=== PATIENT | female | born 1955 | race Caucasian/White ===

== ENCOUNTER 2016-12-17 12:34 | Emergency (ER) | payer MEDICARE ==
[2016-12-17 13:18] VITALS: BP 115/71; PULSE 80; RESP 18; TEMP 97.4
--- NOTE | 2016-12-17 13:36 | ED ---
Lower Extremity Injury HPI - General Chief Complaint: Extremity Injury, Lower Stated Complaint: rt ankle injury Time Seen by Provider: 12/17/16 13:23 Source: patient, RN notes reviewed Mode of arrival: ambulatory Limitations: no limitations - History of Present Illness Initial Comments: Patient is a 61-year-old female presents to the emergency room for evaluation of right ankle pain. Patient states last night she was walking and accidentally twisted her ankle. Patient said she felt multiple pops and lateral side of her ankle. Patient states she got home she took naproxen and ice her ankle. Patient states she woke up this morning her ankle is more swollen and bruising on the lateral side of her foot. Patient states pain is worse when she puts weight on her right leg. Patient has a numbness or tingling in her toes. Patient denies any other injuries during incident. - Related Data Home Medications Medication Instructions Recorded Confirmed Naproxen [Naproxen] 500 mg PO BID 10/06/14 12/17/16 PARoxetine HCL [Paroxetine HCl] 20 mg PO DAILY 10/06/14 12/17/16 Simvastatin [Simvastatin] 10 mg PO HS 10/06/14 12/17/16 Previous Rx's Medication Instructions Recorded ALPRAZolam [Xanax] 0.5 mg PO Q8HR PRN #10 tablet 10/06/14 Allergies Allergy/AdvReac Type Severity Reaction Status Date / Time codeine Allergy Unknown Verified 12/17/16 13:18 Review of Systems ROS Statement: Those systems with pertinent positive or pertinent negative responses have been documented in the HPI. ROS Other: All systems not noted in ROS Statement are negative. Past Medical History Past Medical History: Fibromyalgia Additional Past Medical History / Comment(s): arthritis, kidney ca History of Any Multi-Drug Resistant Organisms: None Reported Past Surgical History: Hysterectomy, Tubal Ligation Additional Past Surgical History / Comment(s): kidney surgery Past Psychological History: Anxiety, Depression Smoking Status: Current every day smoker Past Alcohol Use History: None Reported Past Drug Use History: None Reported General Exam - General Exam Comments Initial Comments: Sitting on exam bed in no acute distress. Limitations: no limitations General appearance: alert, in no apparent distress Head exam: Present: atraumatic, normocephalic, normal inspection Eye exam: Present: normal appearance ENT exam: Present: normal exam Neck exam: Present: normal inspection Respiratory exam: Absent: respiratory distress Right Ankle exam: Present: full ROM, tenderness (Lateral malleolus), swelling ( Lateral malleolus), ecchymosis (Lateral malleolus) Foot/Toe exam: Present: full ROM. Absent: tenderness, swelling Neurovascular tendon exam: Absent: pulse deficit (2+ dorsal pedal and posterior tibial pulses), abnormal cap refill (capillary refill less than 2 seconds) Back exam: Present: normal inspection Neurological exam: Present: alert, oriented X3, CN II-XII intact Psychiatric exam: Present: normal affect, normal mood Skin exam: Present: warm, dry, intact, normal color. Absent: rash Course Vital Signs 12/17/16 13:15 Temperature 97.4 F L Pulse Rate 80 Respiratory 18 Rate Blood Pressure 115/71 O2 Sat by Pulse 98 Oximetry Medical Decision Making - Medical Decision Making Patient is a 61-year-old female presents to the emergency room for evaluation of right ankle pain and swelling. Right ankle/foot x-ray shows no acute fractures or dislocations. Patient placed in an ankle stirrup advised to follow -up with primary care provider or electronic specialist if symptoms are not improving in 7-10 days. Patient states she has crutches at home. Advised patient to nonweight bear for the next 2 days. Patient states she understands everything that was discussed with her. Return parameters discussed. Case discussed with Dr. Morris. - Radiology Data Radiology results: report reviewed, image reviewed Disposition Clinical Impression: Right ankle sprain Disposition: HOME SELF-CARE Condition: Good Instructions: Ankle Sprain (ED) Additional Instructions: Rest, elevate and ice on and off for 10-15 minutes for the next 24-48 hours. Use crutches for the next 2 days. Take Tylenol or Motrin as needed for pain. Please follow-up with electronic specialist or primary care provider symptoms are not improving in 7-10 days. If new symptoms develop or symptoms worsen, please return to the ER. Referrals: Jose Alfredo Stewart DO [Primary Care Provider] - 1-2 days Gerald Bonds MD [Medical Doctor] - 12/25/16 Time of Disposition: 13:55
--- NOTE | 2016-12-17 13:47 | XR ---
EXAMINATION TYPE: XR ankle complete RT, XR foot complete RT DATE OF EXAM: 12/17/2016 1:39 PM CLINICAL HISTORY: Pain after twisting injury yesterday. TECHNIQUE: Frontal, lateral and oblique images of the right ankle and foot are obtained. COMPARISON: None. FINDINGS: Osseous structures are demineralized which is noted to lower radiographic sensitivity There is no acute fracture/dislocation evident in the right ankle. The ankle mortise appears within drake l limits. Mild to moderate soft tissue swelling over the lateral malleolus is noted. There is no acute fracture or dislocation evident in the right foot. The joint spaces in the right f oot are preserved. Overlying soft tissue is unremarkable. IMPRESSION: There is no acute fracture or dislocation in the right ankle or foot.
== END 2016-12-17 14:13 | disposition home or self-care (01) ==
LOC: EC 12:34
DX: S93.401A Sprain of unspecified ligament of right ankle, initial encounter (principal); X50.1XXA Overexertion from prolonged static or awkward postures, initial encounter; Y93.01 Activity, walking, marching and hiking; M79.7 Fibromyalgia; F41.9 Anxiety disorder, unspecified; F32.9 Major depressive disorder, single episode, unspecified; F17.200 Nicotine dependence, unspecified, uncomplicated; Z79.1 Long term (current) use of non-steroidal anti-inflammatories (NSAID); Z79.899 Other long term (current) drug therapy; Z88.5 Allergy status to narcotic agent
CPT/HCPCS: 73610; 73630; 99283; L4350

== ENCOUNTER → 2016-12-20 | Outpatient (CLI) | payer MEDICARE ==
--- NOTE | 2016-12-20 09:40 | CT ---
EXAMINATION TYPE: CT brain wo con DATE OF EXAM: 12/20/2016 9:31 AM COMPARISON: NONE HISTORY: Memory Loss CT DLP: 1036 mGycm Automated exposure control for dose reduction was used. FINDINGS: There is no acute intracranial hemorrhage, mass effect, or midline shift identified. The ventricles and sulci are within normal limits in size. The globes are intact and the visualized sinuses are puja ar. IMPRESSION: No acute intracranial hemorrhage, mass effect, or midline shift is seen.
== END | disposition home or self-care (01) ==
LOC: RADCTMAIN 09:10
PROVIDERS: ATTEND Family Medicine
DX: R41.3 Other amnesia (principal)
CPT/HCPCS: 70450

== ENCOUNTER 2018-09-01 13:20 | Emergency (ER) | payer MEDICARE ==
[2018-09-01 14:10] LABS: Basophils % (A) 0 %; Eosinophils # (A) 0.1 k/uL (0-0.7); Eosinophils % (A) 1 %; HCT 42.2 % (34.0-46.0); HGB 13.6 gm/dL (11.4-16.0); Lymphocytes # (A) 1.3 k/uL (1.0-4.8); Lymphocytes % (A) 15 %; MCH 25.9 pg (25.0-35.0); MCHC 32.2 g/dL (31.0-37.0); MCV 80.5 fL (80.0-100.0); Mean Platelet Volume 7.5; Monocytes # (A) 0.3 k/uL (0-1.0); Monocytes % (A) 4 %; Neutrophils # (A) 6.7 k/uL (1.3-7.7); Neutrophils % (A) 78 %; Platelet Count 287 k/uL (150-450); RBC 5.24 m/uL (3.80-5.40); WBC 8.6 k/uL (3.8-10.6)
--- NOTE | 2018-09-01 14:12 | ED ---
Chest Pain HPI - General Chief Complaint: Chest Pain Stated Complaint: Chest Pain Time Seen by Provider: 09/01/18 13:35 Source: patient, RN notes reviewed, Caregiver Mode of arrival: wheelchair Limitations: no limitations - History of Present Illness Initial Comments: This is a 63-year-old female the ER for evaluation. Patient does say for evasive chest pain chest pain rating to back 2 days. Patient denies any nausea vomiting, no fever cough or congestion no current shortness of breath. History of high blood pressure history of CVA. Patient denies any traumatic injury. MD Complaint: chest pain -: days(s) (2) Onset: during rest, during exertion Pain Location: left chest Pain Radiation: back Severity: mild Severity scale (1-10): 3 Quality: aching Consistency: constant Improves With: nothing Worsens With: nothing Anginal Symptoms: other (None) Treatments Prior to Arrival: none - Related Data Home Medications Medication Instructions Recorded Confirmed Naproxen 500 mg PO BID 10/06/14 09/01/18 PARoxetine HCL [Paroxetine HCl] 20 mg PO DAILY 10/06/14 09/01/18 Simvastatin 10 mg PO HS 10/06/14 09/01/18 Aspirin [[place] Aspirin EC] 81 mg PO DAILY 09/01/18 09/01/18 Multivitamins, Thera [Multivitamin 1 tab PO DAILY 09/01/18 09/01/18 (formulary)] Allergies Allergy/AdvReac Type Severity Reaction Status Date / Time codeine Allergy Unknown Verified 09/01/18 17:01 Review of Systems ROS Statement: Those systems with pertinent positive or pertinent negative responses have been documented in the HPI. ROS Other: All systems not noted in ROS Statement are negative. EKG Findings - EKG Comments: EKG Findings:: EKG shows sinus rhythm rate of 71, TX 156, QRS 76, QTc 395 Past Medical History Past Medical History: Cancer, Fibromyalgia, Hyperlipidemia, Osteoarthritis (OA) Additional Past Medical History / Comment(s): arthritis, kidney ca History of Any Multi-Drug Resistant Organisms: None Reported Past Surgical History: Hysterectomy, Tubal Ligation Additional Past Surgical History / Comment(s): kidney surgery Past Psychological History: Anxiety, Depression Smoking Status: Current every day smoker Past Alcohol Use History: None Reported Past Drug Use History: None Reported General Exam Limitations: no limitations General appearance: alert, in no apparent distress Head exam: Present: atraumatic, normocephalic, normal inspection Eye exam: Present: normal appearance, PERRL, EOMI. Absent: scleral icterus, conjunctival injection, periorbital swelling ENT exam: Present: normal exam, mucous membranes moist Neck exam: Present: normal inspection. Absent: tenderness, meningismus, lymphadenopathy Respiratory exam: Present: normal lung sounds bilaterally. Absent: respiratory distress, wheezes, rales, rhonchi, stridor Cardiovascular Exam: Present: regular rate, normal rhythm, normal heart sounds. Absent: systolic murmur, diastolic murmur, rubs, gallop, clicks GI/Abdominal exam: Present: soft, normal bowel sounds. Absent: distended, tenderness, guarding, rebound, rigid Extremities exam: Present: normal inspection, full ROM, normal capillary refill. Absent: tenderness, pedal edema, joint swelling, calf tenderness Back exam: Present: normal inspection Neurological exam: Present: alert, oriented X3, CN II-XII intact Psychiatric exam: Present: normal affect, normal mood Skin exam: Present: warm, dry, intact, normal color. Absent: rash Course Vital Signs 09/01/18 09/01/18 09/01/18 13:22 13:32 15:00 Temperature 98 F 98.1 F Pulse Rate 84 86 76 Respiratory 18 18 16 Rate Blood Pressure 152/98 139/86 139/86 O2 Sat by Pulse 96 97 97 Oximetry 09/01/18 09/01/18 16:00 17:07 Temperature 97.6 F Pulse Rate 76 82 Respiratory 16 20 Rate Blood Pressure 118/77 140/78 O2 Sat by Pulse 94 L 98 Oximetry - Reevaluation(s) Reevaluation #1: 09/01/18 14:12 Medical record is reviewed Studies CTA chest is a negative Chest Pain MDM - MDM 63 female the ER for evaluation of chest pain. Patient refusing to stay in the ER for further evaluation, refusing observation. Patient will be discharged home Disposition Clinical Impression: Chest pain, Anxiety Disposition: HOME SELF-CARE Condition: Good Instructions: Chest Pain (ED) Is patient prescribed a controlled substance at d/c from ED?: No Referrals: Jose Alfredo Stewart DO [Primary Care Provider] - 1-2 days
[2018-09-01 14:18] LABS: ALT 18 U/L (9-52); AST 28 U/L (14-36); Albumin 4.3 g/dL (3.5-5.0); Alkaline Phosphatase 89 U/L (38-126); Anion Gap 9 mmol/L; Blood Urea Nitrogen 14 mg/dL (7-17); Calcium 10.2 mg/dL (8.4-10.2); Carbon Dioxide 23 mmol/L (22-30); Chloride 105 mmol/L (98-107); Glucose 113 mg/dL (74-99); Lipase 68 U/L (23-300); Magnesium 2.1 mg/dL (1.6-2.3); Potassium 4.9 mmol/L (3.5-5.1); Sodium 137 mmol/L (137-145); Total Bilirubin 0.4 mg/dL (0.2-1.3); Total Protein 7.6 g/dL (6.3-8.2)
[2018-09-01 14:20] LABS: INR 1.1 (<1.2); Partial Thromboplastin Time 26.4 sec (22.0-30.0); Prothrombin Time 10.6 sec (9.0-12.0)
[2018-09-01 14:32] LABS: Creatine Kinase 44 U/L (30-135)
[2018-09-01 14:45] LABS: Creatine Kinase MB 0.2 ng/mL (0.0-2.4); Troponin I <0.012 ng/mL (0.000-0.034)
--- NOTE | 2018-09-01 16:23 | CT ---
EXAMINATION TYPE: CT angio thor/abd pel aorta DATE OF EXAM: 09/01/2018 3:51 PM COMPARISON: CT abdomen 08/18/2013 HISTORY: Chest pain. CT DLP: 497.8 mGycm Automated exposure control for dose reduction was used. TECHNIQUE: Performed with IV Contrast, patient injected with 100 mL of Isovue 370. Three-D reconstructed images were not performed. 2-D MIPS imaging is performed.. FINDINGS: Portion of the thyroid visualized is unremarkable. Small axillary lymph nodes are present. The larges t lymph node is 1.0 cm. Small right axillary lymph nodes are also present. The ascending thoracic aor ta at the level of the main pulmonary artery is 3.2 cm the main pulmonary artery the bifurcation is 2 .3 cm. The aorta tapers normally throughout its visualized course within the thorax. No dissection is evident. CT ABDOMEN: Celiac axis and superior mesenteric arteries appear normal. Renal arteries appear normal. No aneurysmal dilatation of the abdominal aorta is evident. Very minimal vascular calcification is i n the distal aorta. Common iliac, internal and external iliac vessels appear normal to the common fem oral arteries. Urinary bladder is unremarkable. No suspicious diverticulitis is evident. Multiple hepatic cysts appe ar to be present. The largest measures 5.3 cm and 5 Hounsfield units. 1.3 cm left renal cyst is prese nt. Some scarring may be at the inferior pole of the left kidney. IMPRESSION: NORMAL THORACIC AND ABDOMINAL AORTA WITHOUT EVIDENCE OF DISSECTION OR ANEURYSM.
[2018-09-01 17:08] VITALS: BP 140/78; PULSE 82; RESP 20; TEMP 97.6
== END 2018-09-01 17:14 | disposition home or self-care (01) ==
LOC: EC 13:20
DX: F41.9 Anxiety disorder, unspecified (principal); R07.9 Chest pain, unspecified; M54.9 Dorsalgia, unspecified; E78.5 Hyperlipidemia, unspecified; M19.90 Unspecified osteoarthritis, unspecified site; F32.9 Major depressive disorder, single episode, unspecified; F17.200 Nicotine dependence, unspecified, uncomplicated; Z88.5 Allergy status to narcotic agent; Z79.1 Long term (current) use of non-steroidal anti-inflammatories (NSAID); Z79.82 Long term (current) use of aspirin; Z79.899 Other long term (current) drug therapy; Z85.528 Personal history of other malignant neoplasm of kidney; Z98.890 Other specified postprocedural states
CPT/HCPCS: 36415; 93005; 83880; 80053; 82550; 82553; 83690; 83735; 84484; 85025; 85610; 85730; 71275; 74174; 99285; Q9967

== ENCOUNTER → 2019-02-07 | Outpatient (CLI) | payer MEDICARE ==
--- NOTE | 2019-02-07 12:34 | BD ---
EXAMINATION TYPE: Axial Bone Density DATE OF EXAM: 02/07/2019 COMPARISON: NONE CLINICAL HISTORY: Height: 5 FT Weight: 120 FRAX RISK QUESTIONS: Secondary Osteoporosis: Current Tobacco Use: YES RISK FACTORS HISTORY OF: Family History of Osteoporosis: YES Active: YES Postmenopausal woman: AGE 60 Frequent falls: YES MEDICATIONS: Additional Medications: SIMVASTATIN, NAPROSEN,PAXIL , VIT D,ASPIRIN, FOLIC ACID Additional History: EXAM MEASUREMENTS: Bone mineral densitometry was performed using the swiftQueue System. Bone mineral density as measured about the Lumbar spine is: ----- L1-L4(G/cm2): 1.013 T Score Values are as follows: ----- L2: -1.6 ----- L3: -1.4 ----- L4: -1.4 ----- L1-L4: -1.4 BASELINE Bone mineral density about the R hip (g/cm2): 0.722 Bone mineral density about the L hip (g/cm2): 0.730 T Score values are as follows: -----R Neck: -2.3 -----L Neck: -2.2 -----R Total: -1.7 -----L Total: -1.9 BASELINE IMPRESSION: Osteopenia NOTE: T-SCORE=SD OF THE YOUNG ADULT MEAN.
--- NOTE | 2019-02-11 08:26 | MM ---
Reason for exam: screening (asymptomatic). Last mammogram was performed 1 year and 4 months ago. History: Patient is postmenopausal and has history of high-risk lesion on a previous biopsy at age 51. Family history of breast cancer in sister at age 42. High risk excisional biopsy of the right breast, February 19, 2007. Benign ultrasound-guided core biopsy of the right breast, March 20, 2002. Cyst aspiration of the left breast. Cyst aspiration of the right breast. Core biopsy of the right breast. Physical Findings: A clinical breast exam by your physician is recommended on an annual basis and results should be correlated with mammographic findings. MG Screening Mammo w CAD Bilateral CC and MLO view(s) were taken. Prior study comparison: October 03, 2017, bilateral MG screening mammo w CAD. The breast tissue is heterogeneously dense. This may lower the sensitivity of mammography. No significant changes when compared with prior studies. ASSESSMENT: Negative, BI-RAD 1 RECOMMENDATION: Routine screening mammogram of both breasts in 1 year.
== END | disposition home or self-care (01) ==
LOC: RADMAMWWP 11:25
PROVIDERS: ATTEND Family Medicine
DX: Z12.31 Encounter for screening mammogram for malignant neoplasm of breast (principal); M85.851 Other specified disorders of bone density and structure, right thigh; M85.852 Other specified disorders of bone density and structure, left thigh; M85.88 Other specified disorders of bone density and structure, other site
CPT/HCPCS: 77067; 77080

== ENCOUNTER → 2020-03-29 | Outpatient (CLI) | payer MEDICARE | END | disposition home or self-care (01) | LOC: LABWHC1 10:27 | PROVIDERS: ATTEND Internal Medicine | DX: Z11.59 Encounter for screening for other viral diseases (principal) ==

== ENCOUNTER 2020-04-01 11:54 | Day surgery (SDC) | payer MEDICARE ==
[2020-03-31 08:52] VITALS: BMI 23.4
[~2020-04-01 11:54] MED LIST: LACTATED RINGERS 1,000 ML IV SCH
[2020-04-01 12:25] VITALS: TEMP 97
[2020-04-01] MEDS ORDERED: LIDOCAINE 1% (10MG/ML) FOR IV START INTRADERMA ONE (12:31)
[2020-04-01] MEDS ORDERED: PROPOFOL 10 MG/ML 20 ML VIAL IV ONE (12:59)
--- NOTE | 2020-04-01 13:36 | P.PCN ---
Date of Procedure: 04/01/20 Description of Procedure: BRIEF HISTORY: Patient is a 64-year-old female presenting to the hospital for outpatient colonoscopy for a history of colon polyps. Denies any change in bowel habits, blood per rectum or family history of colon cancer. Last colonoscopy significant for polypectomy and colon polyps. PROCEDURE PERFORMED: Colonoscopy with polypectomy. PREOPERATIVE DIAGNOSIS: History of colon polyps. ESTIMATED BLOOD LOSS: Minimal. IV sedation per Anesthesia. PROCEDURE: After informed consent was obtained, the patient, was brought into the endoscopy unit. IV sedation was administered by Anesthesia under continuous monitoring. Digital rectal examination was normal. Initially the Olympus CF-190 flexible video colonoscope was then inserted in the rectum, gradually advanced into the cecum with some difficulty secondary to a poor prep with stool noted throughout the colon. Careful examination was performed as the scope was gradually being withdrawn. Ileocecal valve and the appendiceal orifice were visualized and appeared normal. Prep was poor with a large amount of liquid stool throughout the colon precluding complete visualization of mucosa. Mucosa of the cecum, ascending colon, transverse colon, descending colon, sigmoid colon, and rectum appeared normal, however complete view was obstructed by stool. Flat 5 mm transverse colon polyp removed with cold snare polypectomy. Retroflexion was performed in the rectum and no lesions were seen. The patient tolerated the procedure well. IMPRESSION: 5 mm transverse colon polyp removed with cold snare polypectomy. Poor prep with stool noted throughout the colon obstructing completely visualization of the mucosa. RECOMMENDATIONS: Findings of this examination were discussed with the patient. Okay to resume diet. Okay to resume medications. Would recommend repeat colonoscopy in 6-12 months with a 2 day prep. Otherwise await results from polypectomy.
[2020-04-01 13:57] VITALS: BP 122/74; PULSE 77; RESP 18
== END 2020-04-01 14:01 | disposition home or self-care (01) ==
LOC: ORWHC2ENDO 11:54
PROVIDERS: ATTEND Internal Medicine
DX: Z12.11 Encounter for screening for malignant neoplasm of colon (principal); D12.3 Benign neoplasm of transverse colon; Z86.010 Personal history of colon polyps; E78.5 Hyperlipidemia, unspecified; M19.90 Unspecified osteoarthritis, unspecified site; M79.7 Fibromyalgia; F41.9 Anxiety disorder, unspecified; F32.9 Major depressive disorder, single episode, unspecified; F17.200 Nicotine dependence, unspecified, uncomplicated; Z88.5 Allergy status to narcotic agent; Z88.8 Allergy status to other drugs, medicaments and biological substances; Z79.82 Long term (current) use of aspirin; Z79.1 Long term (current) use of non-steroidal anti-inflammatories (NSAID); Z79.899 Other long term (current) drug therapy; Z85.528 Personal history of other malignant neoplasm of kidney; Z98.51 Tubal ligation status; Z90.710 Acquired absence of both cervix and uterus; Z98.890 Other specified postprocedural states
CPT/HCPCS: 88305; 45385; J2704

== ENCOUNTER → 2020-05-20 | Outpatient (CLI) | payer MEDICARE ==
[2020-05-20 13:27] VITALS: BP 110/70; PULSE 87; RESP 16
--- NOTE | 2020-05-21 08:23 | P.PAINCN ---
History of Present Illness - Reason for Consult Consult date: 05/20/20 - History of Present Illness This is a 65-year-old patient referred by Dr. Stewart with a chief complaint of chronic pain in thoracic spine. Pain began approximately 6 months ago with no inciting event. Pain is located at T8-9 region, radiating to left thoracic paraspinal region, around the left rib cage up to sternum. Pain is rated as 8/10, described as dull, aching, throbbing. She endorses difficulty with activities of daily living. She also endorses nausea when the pain gets severe. She denies numbness, weakness, tingling in upper and lower extremities. She denies aggravating or relieving factors, she has tried heat, ice and massage with no significant benefit. She has also been on Neurontin 100 mg twice a day which helped, however she is no longer taking this medication. She was evaluated by Dr. Nunez who did not recommend surgical intervention at this time. Patient has been taking medications from primary care physician including naproxen, Tylenol, lidocaine patch with some relief. Patient denies adverse drug effects from medications. Patient also denies new-onset weakness, bowel/bladder incontinence, or any other signs or symptoms of cauda equina syndrome. There are no signs of acute intoxication, and no indications of medication diversion or overuse. Patient has not had surgery. Patient has not had injections previously. Patient has not had physical therapy recently. In addition to above, 13-point review of systems is also negative for chest pain, shortness of breath, changes in vision, changes in hearing, new onset weakness, abdominal pain, diarrhea, extreme fatigue, malaise, fever, skin changes, homicidal or suicidal ideation, or bowel or bladder incontinence. Physical exam: Vital Signs: Reviewed in EMR GENERAL: Well appearing, in no acute distress PSYCH: Mood and affect is appropriate. Awake, alert, and oriented SKIN: Skin color, texture, turgor normal, no rashes or lesions HEENT: Normocephalic, atraumatic. EOM intact CV: No pedal edema RESP: Respirations are unlabored, no audible wheezing GI: Abdomen non-distended MUSCULOSKELETAL: Bilateral upper and lower extremity strength is normal and symmetric. No atrophy or tone abnormalities are noted. Neck: No pain to palpation over the cervical paraspinous muscles. Normal cervical lordotic curve and normal cervical spine range of motion. Tenderness to palpation along bilateral trapezius muscles. Thoracic spine: Tenderness to palpation along bilateral thoracic paraspinal muscles, worse on the left side. Lumbar spine: No pain to palpation over the lumbar spine and paraspinous muscles. Buttocks: No pain to palpation over the PSIS Extremities: Peripheral joint ROM is full and pain free without obvious instability or laxity in all four extremities. No edema or skin discolorations noted. Gait: Gait is normal NEUR: Bilateral upper and lower extremity coordination and muscle stretch reflexes are physiologic and symmetric. No loss of sensation is noted. Cranial nerves are grossly intact. Imaging: MRI thoracic spine done on 04/21/2020 shows multilevel degenerative changes with accentuated thoracic kyphosis and texture convex curvature, multilevel small disc herniations most prominent at T5-6 level with a left central disc protrusion which minimally contacts the ventral cord. Assessment: 1. Thoracic degenerative disc disease 2. Kyphosis Plan: 1. Investigations: MRI thoracic spine reviewed 2. Procedures: We will schedule thoracic epidural steroid injection at T8-9 3. Medications: No changes, in the future would consider resuming gabapentin 4. Disposition: For above-mentioned procedure Past Medical History Past Medical History: Cancer, Fibromyalgia, Hyperlipidemia, Osteoarthritis (OA) Additional Past Medical History / Comment(s): arthritis, kidney ca, History of Any Multi-Drug Resistant Organisms: None Reported Past Surgical History: Cholecystectomy, Hysterectomy, Tubal Ligation Additional Past Surgical History / Comment(s): RT kidney surgery, COLONOSCOPY Past Anesthesia/Blood Transfusion Reactions: Previous Problems w/ Anesthesia Additional Past Anesthesia/Blood Transfusion Reaction / Comm: SLOW TO WAKE UP Smoking Status: Former smoker - Past Family History Mother Family Medical History: Cancer Sister(s) Family Medical History: Cancer Father Family Medical History: Cancer Medications and Allergies Home Medications Medication Instructions Recorded Confirmed Type Naproxen 500 mg PO BID 10/06/14 05/20/20 History PARoxetine HCL [Paroxetine HCl] 20 mg PO DAILY 10/06/14 05/20/20 History Simvastatin 10 mg PO HS 10/06/14 05/20/20 History Aspirin [[place] Aspirin EC] 81 mg PO DAILY 09/01/18 05/20/20 History Multivitamins, Thera [Multivitamin 1 tab PO DAILY 09/01/18 05/20/20 History (formulary)] Ranolazine [Ranexa] 1,000 mg PO BID 03/31/20 05/20/20 History Verapamil HCl [[place] Sr] 240 mg PO DAILY 03/31/20 05/20/20 History Acetaminophen [Tylenol Extra 500 mg PO BID PRN 05/20/20 05/20/20 History Strength] Allergies Allergy/AdvReac Type Severity Reaction Status Date / Time codeine Allergy Rash/Hives Verified 05/20/20 13:10 isosorbide Allergy HEADACHE Verified 05/20/20 13:10 PQRS Measure Charge Sheet Measure #130: Documentation of Current Meds in Medical Chart: Patient's medications documented in chart Measure #226: Tobacco Use: Screen & Cessation Intervention: Pt screened for tobacco use AND intervention given Measure #111: Pneumonia Vaccination: Pneumococcal vaccine NOT administered or previously given Measure #47: Advance Care Plan: Advance care planning discussed & documented, pt chose/unable to give Measure #412: Opioid Treatment Agreement: No documentation of signed opioid treatment agreement Measure #408: Opioid Therapy Follow-up Evaluation: Patient had NO f/u eval minimum every 3 months during opioid therapy Measure #317: Preventitive Care & Scrn High Bld Press & F/U: Normal blood pressure, f/u not required Measure #128: Body Mass Index (BMI) Screening & Follow-up: BMI documented within normal parameters Measure #131: Pain Assessment & Follow-up: Pain positive & plan documented, Follow-up scheduled Measure #431: Unhealthy Alcohol Use Preventative Care & Scrn: Patient not identified as an unhealthy alcohol user PQRS Narrative: Smoking Status Current every day smoker Pain Intensity [Back] 9 Scale Used Numeric (1 - 10) Hx Alcohol Use (MH) No Home Medications: Ambulatory Orders Naproxen 500 mg PO BID 10/06/14 PARoxetine HCL [Paroxetine HCl] 20 mg PO DAILY 10/06/14 Simvastatin 10 mg PO HS 10/06/14 Aspirin [[place] Aspirin EC] 81 mg PO DAILY 09/01/18 Multivitamins, Thera [Multivitamin (formulary)] 1 tab PO DAILY 09/01/18 Ranolazine [Ranexa] 1,000 mg PO BID 03/31/20 Verapamil HCl [Calan Sr] 240 mg PO DAILY 03/31/20 Acetaminophen [Tylenol Extra Strength] 500 mg PO BID PRN 05/20/20
== END | disposition home or self-care (01) ==
LOC: PNWHC3 12:48
PROVIDERS: ATTEND Anesthesiology
DX: M51.34 Other intervertebral disc degeneration, thoracic region (principal); M40.209 Unspecified kyphosis, site unspecified; F17.200 Nicotine dependence, unspecified, uncomplicated; Z79.891 Long term (current) use of opiate analgesic; Z79.899 Other long term (current) drug therapy; Z79.82 Long term (current) use of aspirin; Z88.5 Allergy status to narcotic agent; Z88.8 Allergy status to other drugs, medicaments and biological substances
CPT/HCPCS: 99211

== ENCOUNTER 2020-06-03 06:44 | Day surgery (SDC) | payer MEDICARE ==
[2020-06-02 10:15] VITALS: BMI 22.4
[2020-06-03 07:06] VITALS: TEMP 97
[2020-06-03] MEDS ORDERED: MIDAZOLAM 2 MG/2 ML VIAL ONE (07:40)
[2020-06-03] MEDS ORDERED: IOPAMIDOL M200 10 ML VIAL ONE (07:40)
[2020-06-03] MEDS ORDERED: methylPREDNISolone ACETATE 40 MG/ML 1 ML VIAL ONE (07:40)
--- NOTE | 2020-06-03 08:03 | P.PCN ---
Date of Procedure: 06/03/20 Description of Procedure: Diagnosis: Thoracic radiculopathy Thoracic degenerative disc disease POSTOPERATIVE DIAGNOSIS: Diagnoses: Thoracic back pain Cervical degenerative disc disease PROCEDURE Thoracic Epidural steroid injection under fluoroscopic guidance at the T8-T9 interspace using right paramedian approach Thoracic epidurogram ANESTHESIA: Local with 1% lidocaine 3 ml and IV sedation with Versed, sedation time 12 min Fluoroscopy was used for the procedure and images were saved in the radiology portion of the chart. EBL: Minimal PROCEDURE INDICATION: The patient presents with thoracic radicular symptoms unresponsive to conservative treatment. This is the [first/ second] cervical epidural steroid injection. PROCEDURE DESCRIPTION / TECHNIQUE: The patient was seen and identified in the preoperative area. Risks, benefits, complications including but not limited to infections ,bleeding ,allergic reaction to the medications ,nerve damage and incomplete pain relief, and alternatives were discussed with the patient. The patient agreed to proceed with the procedure and signed the consent. IV was started, and vital signs were stable. Patient was taken to the OR and time out was completed. The patient was placed in the prone position on procedure table and a pillow was placed under the chest area. The thoracic area was prepped and draped in the usual sterile fashion. Conscious sedation was used during the procedure to decrease patients anxiety. Vital signs was monitored during the entire procedure. Using anterior-posterior fluoroscopy, the T8-T9 interlaminar space was identified and the skin over this site was marked and then infiltrated with 1% lidocaine subcutaneously. Subsequently, a 20-gauge Tuohy epidural needle was inserted and advanced toward the epidural space using the loss of resistance technique and guided by AP and 50 oblique fluoroscopy. The correct needle position in the epidural space was verified. After negative aspiration for blood and CSF and in the absence of paresthesias, Isovue 200 2 mL's was injected under live fluoroscopy with good epidural spread. After negative aspiration, a 5 ml mixture containing 40 mg of depo-medrol, 2 mL of preservative free normal saline and 2 mL of 1% lidocaine was injected. Needle was withdrawn intact, skin was cleansed, and bandages were applied. COMPLICATIONS: None DISPOSITION / PLANS: The patient was placed in a supine position and transferred to the recovery area in a stable condition for observation. There was no evidence of lower extremity motor or sensory deficit after the procedure. Patient was discharged from the recovery room after meeting discharge criteria. Home discharge instructions were given to the patient by the staff. The patient will be scheduled a [follow up/repeat procedure] in the clinic in 2-4 weeks.
[2020-06-03] MEDS ORDERED: IV FLUID CONTINUATION 1,000 ML IV ONE ×2 (08:05)
[2020-06-03 08:20] VITALS: BP 125/60; PULSE 69; RESP 18
--- NOTE | 2020-06-03 08:27 | XR ---
EXAMINATION TYPE: XR chest 1V DATE OF EXAM: 06/03/2020 COMPARISON: Chest x-ray May 14, 2013. CT September 01, 2018 HISTORY: Postthoracic epidural with pain. TECHNIQUE: Single frontal view of the chest is obtained. FINDINGS: There is some chronic parenchymal changes bilaterally without new suspicious focal air spa ce opacity, pleural effusion, or pneumothorax seen. The cardiac silhouette size remains within drake l limits. Slight underlying scoliotic curvature. Cholecystectomy clips redemonstrated. IMPRESSION: No acute cardiopulmonary process.
--- NOTE | 2020-06-03 09:40 | FL ---
EXAMINATION TYPE: FL guided pain mgmt statistic DATE OF EXAM: 06/03/2020 HISTORY: Fluoroscopy time 5 seconds of fluoroscopy provided. IMPRESSION: 1. Fluoroscopy time.
== END 2020-06-03 08:39 | disposition home or self-care (01) ==
LOC: ORPAIN 06:44
PROVIDERS: ATTEND Anesthesiology
DX: M51.14 Intervertebral disc disorders with radiculopathy, thoracic region (principal); M50.30 Other cervical disc degeneration, unspecified cervical region; Z88.5 Allergy status to narcotic agent; Z88.8 Allergy status to other drugs, medicaments and biological substances
CPT/HCPCS: 71045; 62321; J2250; J1030; Q9966; 99152

== ENCOUNTER 2020-07-01 09:52 | Emergency (ER) | payer MEDICARE ==
[2020-07-01 10:04] VITALS: RESP 18
[2020-07-01] MEDS ORDERED: ONDANSETRON 4 MG/2 ML VIAL IVP STA (10:23)
[2020-07-01] MEDS ORDERED: MORPHINE SULFATE 4 MG/ML SYRINGE IV STA (10:23)
--- NOTE | 2020-07-01 10:30 | ED ---
Chest Pain HPI - General Chief Complaint: Chest Pain Stated Complaint: Chest pain, back pain Time Seen by Provider: 07/01/20 10:10 Source: patient, RN notes reviewed Mode of arrival: ambulatory Limitations: no limitations - History of Present Illness Initial Comments: This a 65-year-old female presents emergency from chief complaint of back and chest pain. This pain has been on and off for several months. Patient has been seen her PCP and was referred to Dr. Oropeza and pain management. Patient states that she had MRI of her thoracic back which showed disc protrusion, degenerative changes. Patient states she had injections in her back which only helped for a couple days. Patient has not been providing any oral pain meds. Patient denies any shortness of breath no abdominal pain. Patient denies any trauma. She did see a segment assembler in which she had a full workup and was negative. - Related Data Home Medications Medication Instructions Recorded Confirmed Naproxen 500 mg PO BID 10/06/14 07/01/20 PARoxetine HCL [Paroxetine HCl] 20 mg PO DAILY 10/06/14 07/01/20 Simvastatin 10 mg PO HS 10/06/14 07/01/20 Aspirin [[place] Aspirin EC] 81 mg PO DAILY 09/01/18 07/01/20 Ranolazine [Ranexa] 1,000 mg PO BID 03/31/20 07/01/20 Verapamil HCl [Calan Sr] 240 mg PO DAILY 03/31/20 07/01/20 Cholecalciferol [Vitamin D3 (25 2,000 unit PO DAILY 07/01/20 07/01/20 Mcg = 1000 Iu)] Allergies Allergy/AdvReac Type Severity Reaction Status Date / Time codeine Allergy Rash/Hives Verified 07/01/20 10:48 isosorbide AdvReac HEADACHE Verified 07/01/20 10:48 Review of Systems ROS Statement: Those systems with pertinent positive or pertinent negative responses have been documented in the HPI. ROS Other: All systems not noted in ROS Statement are negative. EKG Findings - EKG Comments: EKG Findings:: EKG performed at 10:12 normal sinus rhythm with rate of 69 TX 162 QRS 84 QT/QTc 376/402 Past Medical History Past Medical History: Cancer, Fibromyalgia, Hyperlipidemia, Hypertension, Osteoarthritis (OA) Additional Past Medical History / Comment(s): arthritis, kidney ca, CHEST AND BACK PAIN History of Any Multi-Drug Resistant Organisms: None Reported Past Surgical History: Cholecystectomy, Hysterectomy, Tubal Ligation Additional Past Surgical History / Comment(s): RT kidney surgery, COLONOSCOPY Past Anesthesia/Blood Transfusion Reactions: Previous Problems w/ Anesthesia Additional Past Anesthesia/Blood Transfusion Reaction / Comment(s): SLOW TO WAKE UP Past Psychological History: Anxiety, Depression Smoking Status: Current every day smoker Past Alcohol Use History: None Reported Past Drug Use History: None Reported - Past Family History Mother Family Medical History: Cancer Sister(s) Family Medical History: Cancer Father Family Medical History: Cancer General Exam Limitations: no limitations General appearance: alert, in no apparent distress Head exam: Present: atraumatic, normocephalic, normal inspection Eye exam: Present: normal appearance, PERRL, EOMI. Absent: scleral icterus, conjunctival injection, periorbital swelling ENT exam: Present: normal exam, normal oropharynx, mucous membranes moist Neck exam: Present: normal inspection, full ROM. Absent: tenderness, meningismus, lymphadenopathy Respiratory exam: Present: normal lung sounds bilaterally. Absent: respiratory distress, wheezes, rales, rhonchi, stridor Cardiovascular Exam: Present: regular rate, normal rhythm, normal heart sounds. Absent: systolic murmur, diastolic murmur, rubs, gallop, clicks GI/Abdominal exam: Present: soft, normal bowel sounds. Absent: distended, tenderness, guarding, rebound, rigid Back exam: Present: full ROM, tenderness Neurological exam: Present: alert, oriented X3 Skin exam: Present: warm, dry, intact, normal color. Absent: rash Course Vital Signs 07/01/20 09:59 Temperature 97.9 F Pulse Rate 87 Respiratory 18 Rate Blood Pressure 128/80 O2 Sat by Pulse 100 Oximetry Chest Pain MDM - MDM I did review patient's MRI report which showed degenerative changes, disc protrusion. Patient's symptoms are consistent with thoracic back pain. Patient has been cleared by cardiology. Labs, EKG unremarkable. Patient provided a starter pack of tramadol will be discharged in stable additional close follow- up. Disposition Clinical Impression: Thoracic back pain Disposition: HOME SELF-CARE Condition: Stable Instructions (If sedation given, give patient instructions): Back Pain (ED) Additional Instructions: Please return to the Emergency Department if symptoms worsen or any other concerns. Is patient prescribed a controlled substance at d/c from ED?: No Referrals: Jose Alfredo Stewart DO [Primary Care Provider] - 1-2 days Time of Disposition: 11:47
[2020-07-01 11:04] LABS: Basophils % (A) 0 %; Eosinophils # (A) 0.2 k/uL (0-0.7); Eosinophils % (A) 3 %; HCT 36.5 % (34.0-46.0); HGB 11.6 gm/dL (11.4-16.0); Lymphocytes # (A) 1.1 k/uL (1.0-4.8); Lymphocytes % (A) 16 %; MCH 27.1 pg (25.0-35.0); MCHC 31.9 g/dL (31.0-37.0); MCV 84.7 fL (80.0-100.0); Mean Platelet Volume 6.7; Monocytes # (A) 0.3 k/uL (0-1.0); Monocytes % (A) 4 %; Neutrophils # (A) 5.2 k/uL (1.3-7.7); Neutrophils % (A) 76 %; Platelet Count 377 k/uL (150-450); RDW 15.1 % (11.5-15.5); WBC 6.9 k/uL (3.8-10.6)
[2020-07-01 11:05] LABS: ALT 13 U/L (4-34); AST 23 U/L (14-36); African American GFR (CKD) >90 (>60 ml/min/1.73 sqM); Albumin 4.1 g/dL (3.5-5.0); Alkaline Phosphatase 106 U/L (38-126); Anion Gap 6 mmol/L; Blood Urea Nitrogen 8 mg/dL (7-17); Calcium 9.9 mg/dL (8.4-10.2); Carbon Dioxide 25 mmol/L (22-30); Chloride 103 mmol/L (98-107); Glucose 96 mg/dL (74-99); Non-African American GFR(CKD) >90 (>60 ml/min/1.73 sqM); Partial Thromboplastin Time 27.1 sec (22.0-30.0); Potassium 4.1 mmol/L (3.5-5.1); Prothrombin Time 10.4 sec (9.0-12.0); Sodium 134 mmol/L (137-145); Total Bilirubin 0.4 mg/dL (0.2-1.3)
--- NOTE | 2020-07-01 11:27 | XR ---
EXAMINATION TYPE: XR chest 2V DATE OF EXAM: 07/01/2020 COMPARISON: Prior chest x-ray 06/03/2020 HISTORY: Chest pain TECHNIQUE: Frontal and lateral views of the chest are obtained. FINDINGS: There is no focal air space opacity, pleural effusion, or pneumothorax seen. The cardiac silhouette size is within normal limits. The osseous structures are intact, thoracic spondylosis is present. Surgical clips are present in the right upper quadrant. There are overlying cardiac leads. IMPRESSION: No acute cardiopulmonary process.
[2020-07-01] MEDS ORDERED: traMADol 50 MG STARTER PACK 3 TAB BTL PO STA (11:47)
[2020-07-01 12:02] VITALS: BP 116/85; PULSE 88; TEMP 98.1
== END 2020-07-01 12:02 | disposition home or self-care (01) ==
LOC: EC 09:52
DX: M54.6 Pain in thoracic spine (principal); R07.9 Chest pain, unspecified; I10 Essential (primary) hypertension; E78.5 Hyperlipidemia, unspecified; F41.9 Anxiety disorder, unspecified; F32.9 Major depressive disorder, single episode, unspecified; F17.200 Nicotine dependence, unspecified, uncomplicated; Z79.82 Long term (current) use of aspirin; Z79.899 Other long term (current) drug therapy; Z88.5 Allergy status to narcotic agent; Z88.8 Allergy status to other drugs, medicaments and biological substances; Z85.528 Personal history of other malignant neoplasm of kidney
CPT/HCPCS: 36415; 93005; 80053; 83690; 83735; 84484; 85025; 85610; 85730; 71046; 99285; 96374; 96375; J2270; J2405

== ENCOUNTER 2020-08-13 10:40 | Emergency (ER) | payer MEDICARE ==
[2020-08-13] MEDS ORDERED: LIDOCAINE 5% PATCH TOPICAL STA (11:02)
[2020-08-13] MEDS ORDERED: HYDROcodone/APAP 5-325MG 1 EACH TAB PO STA (11:02)
--- NOTE | 2020-08-13 11:04 | ED ---
Back Pain HPI - General Chief Complaint: Back Pain/Injury Stated Complaint: BACK PAIN Time Seen by Provider: 08/13/20 10:49 Source: patient, family Limitations: no limitations - History of Present Illness Initial Comments: Patient is 65-year-old female with history of chronic back pain presenting to the emergency department with chief complaint of back pain. Patient states her symptoms of an ongoing for approximately 6 months. States she has most pain in the upper lumbar region. Patient states she saw and had an MRI performed revealing multiple herniated disks. Patient states her pain is interfering with her ADLs. States that she saw one month ago and was prescribed Ultram and steroids with no significant improvement in symptoms. Patient reports her pain is exacerbated with left to right rotation and forward flexion. Patient states there is no saddle anesthesia, urinary retention with overflow incontinence or bowel incontinence. Denies any night sweats or chills. Denies abdominal pain nausea vomiting. - Related Data Home Medications Medication Instructions Recorded Confirmed Naproxen 500 mg PO BID 10/06/14 08/13/20 PARoxetine HCL [Paroxetine HCl] 20 mg PO DAILY 10/06/14 08/13/20 Simvastatin 10 mg PO HS 10/06/14 08/13/20 Aspirin [[place] Aspirin EC] 81 mg PO DAILY 09/01/18 08/13/20 Ranolazine [Ranexa] 1,000 mg PO BID 03/31/20 08/13/20 Verapamil HCl [Calan Sr] 240 mg PO DAILY 03/31/20 08/13/20 Cholecalciferol [Vitamin D3 (25 2,000 unit PO DAILY 07/01/20 08/13/20 Mcg = 1000 Iu)] Previous Rx's Medication Instructions Recorded Hydrocodone/Acetaminophen [[place] 1 tab PO Q6HR PRN #12 tab 08/13/20 5-325] Allergies Allergy/AdvReac Type Severity Reaction Status Date / Time codeine Allergy Rash/Hives Verified 08/13/20 11:48 isosorbide AdvReac HEADACHE Verified 08/13/20 11:48 Review of Systems ROS Statement: Those systems with pertinent positive or pertinent negative responses have been documented in the HPI. ROS Other: All systems not noted in ROS Statement are negative. Past Medical History Past Medical History: Cancer, Fibromyalgia, Hyperlipidemia, Hypertension, Osteoarthritis (OA) Additional Past Medical History / Comment(s): arthritis, kidney ca, CHEST AND BACK PAIN History of Any Multi-Drug Resistant Organisms: None Reported Past Surgical History: Cholecystectomy, Hysterectomy, Tubal Ligation Additional Past Surgical History / Comment(s): RT kidney surgery, COLONOSCOPY Past Anesthesia/Blood Transfusion Reactions: Previous Problems w/ Anesthesia Additional Past Anesthesia/Blood Transfusion Reaction / Comment(s): SLOW TO WAKE UP Past Psychological History: Anxiety, Depression Smoking Status: Current every day smoker Past Alcohol Use History: None Reported Past Drug Use History: None Reported - Past Family History Mother Family Medical History: Cancer Sister(s) Family Medical History: Cancer Father Family Medical History: Cancer General Exam Limitations: no limitations General appearance: alert, in no apparent distress Head exam: Present: atraumatic, normocephalic, normal inspection Eye exam: Present: normal appearance, PERRL, EOMI Pupils: Present: normal accommodation ENT exam: Present: normal exam, normal oropharynx, mucous membranes moist, TM's normal bilaterally, normal external ear exam Neck exam: Present: normal inspection, full ROM. Absent: tenderness Respiratory exam: Present: normal lung sounds bilaterally. Absent: respiratory distress, wheezes Cardiovascular Exam: Present: regular rate, normal rhythm, normal heart sounds Extremities exam: Present: normal inspection, full ROM, normal capillary refill Back exam: Present: normal inspection, full ROM, tenderness, paraspinal tenderness (Upper lumbar region), vertebral tenderness (Upper lumbar region) Neurological exam: Present: alert, oriented X3, CN II-XII intact, normal gait Psychiatric exam: Present: normal affect, normal mood Skin exam: Present: warm, dry, intact, normal color Course Vital Signs 08/13/20 08/13/20 10:43 12:16 Temperature 98.7 F Pulse Rate 90 93 Respiratory 16 16 Rate Blood Pressure 106/79 149/100 O2 Sat by Pulse 100 99 Oximetry Medical Decision Making - Medical Decision Making Patient is 65-year-old female with acute on chronic back pain. Symptoms ongoing for the past 6 months. No cauda equina. No red flags. Recent MRI performed about 2 months ago revealed multiple herniated disc. On physical examination, patient has a poor lumbar region tenderness to palpation. Some pain radiating to bilateral lower extremities. States this has been like this ever since her symptoms began. She is said to follow-up with her primary care and . Patient was given Byron it will be discharged with 3 days of Byron. Return parameters were discussed the patient is an ascending agreeable. Case discussed with physician. Disposition Clinical Impression: Mechanical back pain, Strain of lumbar region Disposition: HOME SELF-CARE Condition: Stable Instructions (If sedation given, give patient instructions): Acute Low Back Pain (ED) Additional Instructions: Take prescribed medication as directed. Do not drive or operative heavy machinery when taking medication. Return to emergency department if symptoms worsen. Prescriptions: Hydrocodone/Acetaminophen [Byron 5-325] 1 tab PO Q6HR PRN #12 tab PRN Reason: Pain Is patient prescribed a controlled substance at d/c from ED?: No Referrals: Jose Alfredo Stewart DO [Primary Care Provider] - 1-2 days Time of Disposition: 12:38
[2020-08-13 12:18] VITALS: PULSE 93
[2020-08-13] MEDS ORDERED: HYDROmorphone 0.5 MG/0.5 ML SYRINGE IM STA (12:26)
[2020-08-13 12:51] VITALS: BP 136/89; RESP 18; TEMP 97.7
== END 2020-08-13 12:48 | disposition home or self-care (01) ==
LOC: EC 10:40
DX: S39.012A Strain of muscle, fascia and tendon of lower back, initial encounter (principal); M51.26 Other intervertebral disc displacement, lumbar region; G89.29 Other chronic pain; F41.9 Anxiety disorder, unspecified; F32.9 Major depressive disorder, single episode, unspecified; E78.5 Hyperlipidemia, unspecified; I10 Essential (primary) hypertension; M19.90 Unspecified osteoarthritis, unspecified site; M79.7 Fibromyalgia; F17.200 Nicotine dependence, unspecified, uncomplicated; Z79.82 Long term (current) use of aspirin; Z79.899 Other long term (current) drug therapy; Z79.1 Long term (current) use of non-steroidal anti-inflammatories (NSAID); Z88.5 Allergy status to narcotic agent; Z88.8 Allergy status to other drugs, medicaments and biological substances; Z85.528 Personal history of other malignant neoplasm of kidney; X50.9XXA Other and unspecified overexertion or strenuous movements or postures, initial encounter
CPT/HCPCS: 99283

== ENCOUNTER 2020-08-18 09:16 | Inpatient (IN) | payer MEDICARE ==
--- NOTE | 2020-08-18 09:39 | ED ---
General Adult HPI - General Chief complaint: Chest Pain Stated complaint: chest pressure Time Seen by Provider: 08/18/20 09:20 Source: patient, RN notes reviewed, old records reviewed Mode of arrival: wheelchair Limitations: no limitations - History of Present Illness Initial comments: This is a 65-year-old female presents emergency Department with a past medical history significant for chronic back pain which sometimes radiates to her shoulders Patient states she's here today because she is having bilateral shoulder pain and circumferential rib pain. Patient denies any injury. Patient states she went to see her primary medical care doctor on Sunday and came to the emergency department on Sunday for this pain. Patient states she supposed to follow-up with a pain doctor tomorrow. Patient denies any difficulty breathing shortness of breath per patient denies any palpitations. Patient states the pain is much worse with any kind of movement. Patient states both shoulders ache diffusely and the rib pain is from the lateral aspect of the left flank to the lateral aspect of the right flank including some tenderness to the sternum. Patient denies any fever chills or cough. Patient states she is a smoker. Patient denies any abdominal pain patient's nausea vomiting diarrhea. - Related Data Home Medications Medication Instructions Recorded Confirmed Naproxen 500 mg PO BID 10/06/14 08/18/20 PARoxetine HCL [Paroxetine HCl] 20 mg PO DAILY 10/06/14 08/18/20 Simvastatin 10 mg PO HS 10/06/14 08/18/20 Aspirin [[place] Aspirin EC] 81 mg PO DAILY 09/01/18 08/18/20 Ranolazine [Ranexa] 1,000 mg PO BID 03/31/20 08/18/20 Verapamil HCl [Calan Sr] 240 mg PO DAILY 03/31/20 08/18/20 Cholecalciferol [Vitamin D3 (25 2,000 unit PO DAILY 07/01/20 08/18/20 Mcg = 1000 Iu)] Acetaminophen [Tylenol] 500 mg PO Q4-6H PRN 08/18/20 08/18/20 Ondansetron [Zofran] 4 mg PO Q8H PRN 08/18/20 08/18/20 Previous Rx's Medication Instructions Recorded Hydrocodone/Acetaminophen [[place] 1 tab PO Q6HR PRN #12 tab 08/13/20 5-325] Allergies Allergy/AdvReac Type Severity Reaction Status Date / Time codeine Allergy Rash/Hives Verified 08/18/20 10:23 isosorbide AdvReac HEADACHE Verified 08/18/20 10:23 Review of Systems ROS Statement: Those systems with pertinent positive or pertinent negative responses have been documented in the HPI. ROS Other: All systems not noted in ROS Statement are negative. Past Medical History Past Medical History: Cancer, Fibromyalgia, Hyperlipidemia, Hypertension, Osteoarthritis (OA) Additional Past Medical History / Comment(s): arthritis, kidney ca, CHEST AND BACK PAIN History of Any Multi-Drug Resistant Organisms: None Reported Past Surgical History: Cholecystectomy, Hysterectomy, Tubal Ligation Additional Past Surgical History / Comment(s): RT kidney surgery, COLONOSCOPY Past Anesthesia/Blood Transfusion Reactions: Previous Problems w/ Anesthesia Additional Past Anesthesia/Blood Transfusion Reaction / Comment(s): SLOW TO WAKE UP Past Psychological History: Anxiety, Depression Smoking Status: Current every day smoker Past Alcohol Use History: None Reported Past Drug Use History: None Reported - Past Family History Mother Family Medical History: Cancer Sister(s) Family Medical History: Cancer Father Family Medical History: Cancer General Exam - General Exam Comments Initial Comments: GENERAL: Patient is well-developed and well-nourished. Patient is nontoxic and well- hydrated and is in moderate distress. ENT: Neck is soft and supple. No significant lymphadenopathy is noted. Oropharynx is clear. Moist mucous membranes. Neck has full range of motion without eliciting any pain. EYES: The sclera were anicteric and conjunctiva were pink and moist. Extraocular movements were intact and pupils were equal round and reactive to light. Eyelids were unremarkable. PULMONARY: Unlabored respirations. Good breath sounds bilaterally. No audible rales rhonchi or wheezing was noted. CARDIOVASCULAR: There is a regular rate and rhythm without any murmurs gallops or rubs. ABDOMEN: Patient has tenderness to the right and left upper quadrants. SKIN: Skin is clear with no lesions or rashes and otherwise unremarkable. NEUROLOGIC: Patient is alert and oriented x3. Cranial nerves II through XII are grossly intact. Motor and sensory are also intact. Normal speech, volume and content. Symmetrical smile. MUSCULOSKELETAL: Normal extremities with adequate strength and full range of motion. Patient's shoulders bilaterally are tender to touch anywhere on the shoulder area there is no redness or swelling. LYMPHATICS: No significant lymphadenopathy is noted PSYCHIATRIC: Normal psychiatric evaluation. Limitations: no limitations Course Vital Signs 08/18/20 08/18/20 09:19 12:10 Temperature 98.1 F 98.6 F Pulse Rate 105 H 79 Respiratory 18 18 Rate Blood Pressure 117/82 114/72 O2 Sat by Pulse 99 98 Oximetry Medical Decision Making - Medical Decision Making EKG shows normal sinus rhythm at 89 bpm KS interval is 146 dresses 78 QT interval 362 QTC is 440. Patient's EKG shows T-wave inversions in precordial leads V1 through V4. There are Q waves in 3 and aVF. Chest x-ray showed free air under the diaphragm. I got a CT abdomen pelvis showed free air with a possible perforated gastric ulcer. I spoke with Dr. Brian she is willing to admit the patient. - Lab Data Result diagrams: 08/18/20 09:39 08/18/20 09:39 Lab Results 08/18/20 08/18/20 08/18/20 Range/Units 09:39 09:39 09:39 WBC 15.7 H (3.8-10.6) k/uL RBC 4.80 (3.80-5.40) m/uL Hgb 13.2 (11.4-16.0) gm/dL Hct 41.7 (34.0-46.0) % MCV 86.9 (80.0-100.0) fL MCH 27.5 (25.0-35.0) pg MCHC 31.7 (31.0-37.0) g/dL RDW 14.3 (11.5-15.5) % Plt Count 516 H (150-450) k/uL Neutrophils % 84 % Lymphocytes % 9 % Monocytes % 4 % Eosinophils % 2 % Basophils % 0 % Neutrophils # 13.2 H (1.3-7.7) k/uL Lymphocytes # 1.4 (1.0-4.8) k/uL Monocytes # 0.7 (0-1.0) k/uL Eosinophils # 0.3 (0-0.7) k/uL Basophils # 0.1 (0-0.2) k/uL PT 10.3 (9.0-12.0) sec INR 1.0 (<1.2) APTT 26.6 (22.0-30.0) sec D-Dimer 2.45 H (<0.60) mg/L FEU Sodium 131 L (137-145) mmol/L Potassium 4.0 (3.5-5.1) mmol/L Chloride 97 L (98-107) mmol/L Carbon Dioxide 26 (22-30) mmol/L Anion Gap 8 mmol/L BUN 11 (7-17) mg/dL Creatinine 0.56 (0.52-1.04) mg/dL Est GFR (CKD-EPI)AfAm >90 (>60 ml/min/1.73 sqM) Est GFR (CKD-EPI)NonAf >90 (>60 ml/min/1.73 sqM) Glucose 125 H (74-99) mg/dL Calcium 10.2 (8.4-10.2) mg/dL Magnesium 2.0 (1.6-2.3) mg/dL Total Bilirubin 0.5 (0.2-1.3) mg/dL AST 16 (14-36) U/L ALT 11 (4-34) U/L Alkaline Phosphatase 106 (38-126) U/L Troponin I (0.000-0.034) ng/mL Total Protein 7.3 (6.3-8.2) g/dL Albumin 4.2 (3.5-5.0) g/dL 08/18/20 Range/Units 09:39 WBC (3.8-10.6) k/uL RBC (3.80-5.40) m/uL Hgb (11.4-16.0) gm/dL Hct (34.0-46.0) % MCV (80.0-100.0) fL MCH (25.0-35.0) pg MCHC (31.0-37.0) g/dL RDW (11.5-15.5) % Plt Count (150-450) k/uL Neutrophils % % Lymphocytes % % Monocytes % % Eosinophils % % Basophils % % Neutrophils # (1.3-7.7) k/uL Lymphocytes # (1.0-4.8) k/uL Monocytes # (0-1.0) k/uL Eosinophils # (0-0.7) k/uL Basophils # (0-0.2) k/uL PT (9.0-12.0) sec INR (<1.2) APTT (22.0-30.0) sec D-Dimer (<0.60) mg/L FEU Sodium (137-145) mmol/L Potassium (3.5-5.1) mmol/L Chloride (98-107) mmol/L Carbon Dioxide (22-30) mmol/L Anion Gap mmol/L BUN (7-17) mg/dL Creatinine (0.52-1.04) mg/dL Est GFR (CKD-EPI)AfAm (>60 ml/min/1.73 sqM) Est GFR (CKD-EPI)NonAf (>60 ml/min/1.73 sqM) Glucose (74-99) mg/dL Calcium (8.4-10.2) mg/dL Magnesium (1.6-2.3) mg/dL Total Bilirubin (0.2-1.3) mg/dL AST (14-36) U/L ALT (4-34) U/L Alkaline Phosphatase (38-126) U/L Troponin I <0.012 (0.000-0.034) ng/mL Total Protein (6.3-8.2) g/dL Albumin (3.5-5.0) g/dL Critical Care Time Critical Care Time: Yes Total Critical Care Time: 35 Disposition Clinical Impression: Pneumoperitoneum, Gastric ulcer, Elevated d-dimer Disposition: ADMITTED IP TO THIS [facility] Time of Disposition: 11:28
[2020-08-18] MEDS ORDERED: MORPHINE SULFATE 2 MG/ML SYRINGE IVP STA (09:40)
[2020-08-18] MEDS ORDERED: ASPIRIN 81 MG PO STA (09:40)
[2020-08-18 09:52] LABS: Basophils # (A) 0.1 k/uL (0-0.2); Basophils % (A) 0 %; Eosinophils # (A) 0.3 k/uL (0-0.7); Eosinophils % (A) 2 %; HCT 41.7 % (34.0-46.0); HGB 13.2 gm/dL (11.4-16.0); Lymphocytes # (A) 1.4 k/uL (1.0-4.8); Lymphocytes % (A) 9 %; MCH 27.5 pg (25.0-35.0); MCHC 31.7 g/dL (31.0-37.0); MCV 86.9 fL (80.0-100.0); Mean Platelet Volume 6.8; Monocytes # (A) 0.7 k/uL (0-1.0); Monocytes % (A) 4 %; Neutrophils # (A) 13.2 k/uL (1.3-7.7); Neutrophils % (A) 84 %; Platelet Count 516 k/uL (150-450); RDW 14.3 % (11.5-15.5); WBC 15.7 k/uL (3.8-10.6)
[2020-08-18 10:03] LABS: ALT 11 U/L (4-34); AST 16 U/L (14-36); African American GFR (CKD) >90 (>60 ml/min/1.73 sqM); Albumin 4.2 g/dL (3.5-5.0); Alkaline Phosphatase 106 U/L (38-126); Anion Gap 8 mmol/L; Blood Urea Nitrogen 11 mg/dL (7-17); Calcium 10.2 mg/dL (8.4-10.2); Carbon Dioxide 26 mmol/L (22-30); Chloride 97 mmol/L (98-107); Glucose 125 mg/dL (74-99); Non-African American GFR(CKD) >90 (>60 ml/min/1.73 sqM); Sodium 131 mmol/L (137-145); Total Bilirubin 0.5 mg/dL (0.2-1.3); Total Protein 7.3 g/dL (6.3-8.2)
[2020-08-18 10:08] LABS: Partial Thromboplastin Time 26.6 sec (22.0-30.0); Prothrombin Time 10.3 sec (9.0-12.0)
--- NOTE | 2020-08-18 10:08 | XR ---
EXAMINATION TYPE: XR chest 2V DATE OF EXAM: 08/18/2020 COMPARISON: Prior chest x-ray 07/28/2020 HISTORY: Chest pain TECHNIQUE: Frontal and lateral views of the chest are obtained. FINDINGS: Lucency is noted beneath the hemidiaphragms. Surgical clips are present in the right upper quadrant. There is no focal air space opacity, pleural effusion, or pneumothorax seen. The cardiac s ilhouette size is within normal limits. The osseous structures are intact. IMPRESSION: Findings may represent pneumoperitoneum persists bowel loops, consider CT. Findings rela yed to Dr. Recinos telephonically at the time of interpretation at exam.
[2020-08-18 10:09] LABS: D-Dimer 2.45 mg/L FEU (<0.60)
--- NOTE | 2020-08-18 10:54 | CT ---
EXAMINATION TYPE: CT abdomen pelvis w con DATE OF EXAM: 08/18/2020 HISTORY: Abnormal CXR CT DLP: 469.3mGycm Automated Exposure Control for Dose Reduction was Utilized. CONTRAST: CT scan of the abdomen and pelvis is performed without oral but with IV Contrast, patient injected wi th 100 ml mL of Isovue 300. COMPARISON: Chest x-ray earlier today. CTA aorta September 01, 2018 FINDINGS: LUNG BASES: Right greater than left bibasilar dependent atelectasis. LIVER/GB: Cholecystectomy clips redemonstrated. Scattered cysts of varying size and shape redemonstra ezekiel throughout the liver. PANCREAS: No significant abnormality is seen. SPLEEN: No significant abnormality is seen. ADRENALS: No significant abnormality is seen. KIDNEYS: Symmetric cortical medullary uptake and excretion without hydronephrosis seen bilaterally. O ccasional tiny thin-walled cysts scattered throughout both kidneys. More hyperdense roughly 1 cm lesi on anteriorly upper pole left kidney axial image 22 series 301 favors a proteinaceous cyst not signif icantly changed from prior. Asymmetric diminished size and areas of cortical defect in the left kidne y redemonstrated. BOWEL: Suboptimal evaluation of bowel without enteric contrast and patient having little intra-abdomi nal fat. Moderate to severe gastric wall thickening is felt present and poorly distended stomach part icularly in the fundus. No suspicious small or large bowel dilatation. Sigmoid colonic diverticula. W andering cecum into the midabdomen anteriorly on axial image 43 similar to prior study. UTERUS/ADNEXA: Uterus surgically absent or markedly atrophic. LYMPH NODES: Prominent but subcentimeter epigastric lymph nodes noted on current study new from Prior . No greater than 1cm abdominal or pelvic lymph nodes are appreciated. OSSEOUS STRUCTURES: Slight levoconvex scoliotic curvature positioning. OTHER: Confirmation of pneumoperitoneum greatest in the upper abdomen. Suspicion for perforation from stomach along anterior aspect of the fundus coronal image 29 and axial image 14 just posterior to th e lateral segment left hepatic lobe IMPRESSION: Confirmation of pneumoperitoneum. Moderate to severe gastritis with suspicion for gastric (ulcer) focal perforation as detailed above.
[2020-08-18] MEDS ORDERED: PANTOPRAZOLE 40 MG/10 ML VIAL IVP ONE (11:09)
[2020-08-18] MEDS ORDERED: PIPERACILLIN-TAZOBACTAM 3.375 GM in SODIUM CHLORIDE 0.9% 100 ML IVPB STA (11:11)
[2020-08-18] MEDS ORDERED: SODIUM CHLORIDE 0.9% 1,000 ML IV ONE (12:17)
[2020-08-18] MEDS: HYDROmorphone 0.5 MG/0.5 ML SYRINGE IVP PRN ×2 (13:56→18:28)
[2020-08-18] MEDS ORDERED: HYDROmorphone 1 MG/ML 1 ML SYRINGE IVP PRN (18:33)
[2020-08-18] MEDS ORDERED: diphenhydrAMINE 50 MG/ML 1 ML VIAL IVP PRN (18:33)
[2020-08-18] MEDS: PIPERACILLIN-TAZOBACTAM 3.375 GM in SODIUM CHLORIDE 0.9% 100 ML IVPB SCH (20:25)
[2020-08-18] MEDS: PANTOPRAZOLE 40 MG/10 ML VIAL IVP SCH (20:25)
--- NOTE | 2020-08-18 21:42 | P.CONS ---
History of Present Illness - Reason for Consult Consult date: 08/18/20 Medical management Requesting physician: Kacie Garcia - Chief Complaint Abdominal pain - History of Present Illness Consultation: This is a pleasant 65-year-old patient of Dr. Stewart. Chronic stable medical conditions include fibromyalgia, hypertension, hyperlipidemia, osteoarthritis, kidney cancer that was removed, osteoarthritis chronic low back pain. Long-sta nding smoker. Patient started on yesterday with increasing epigastric pain down to below the rib cage also refer to the shoulder. A lot of nausea. This presented to ER earlier today. X-ray and computed tomography scan of the abdomen showed free air and present of thickened gastric wall. Continues to have epigastric pain. No obvious fever and chills. Patient recently has been on steroids for her back pain exacerbation. Review of systems: GEN.: Tired EYES: None HEENT: None NECK: None RESPIRATORY: Baseline some shortness of breath CARDIOVASCULAR: None GASTROINTESTINAL: As above GENITOURINARY: None MUSCULOSKELETAL: Joint pains including lower back pain LYMPHATICS: None HEMATOLOGICAL: None PSYCHIATRY: Anxiety NEUROLOGICAL: None Past medical history to include: From Dr. Looney, hyperlipidemia, hypertension, osteoarthritis, kidney cancer localized that was removed, arthritis, lower back pain anxiety depression Social history: Smokes half a pack a day for over 32 years no alcohol. Lives with her Physical examination: VITAL SIGNS: 97.7, 71, 16, 97/54, 97% room air GENERAL: BMI 20.5, laying in bed, not in distress. EYES: Pupils equal. Conjunctiva normal. HEENT: External appearance of nose and ears normal, oral cavity grossly normal. NECK: JVD not raised; masses not palpable. HEART: First and second heart sounds are normal; no edema. LUNGS: Respiratory rate increased; decreased breath sounds. ABDOMEN: Soft, epigastric tenderness, no guarding rigidity, liver spleen not palpable, no masses palpable. PSYCH: Alert and oriented x3; mood and affect tiredl. NEUROLOGICAL: Cranial nerves grossly intact; no facial asymmetry, power and sensation grossly intact. LYMPHATICS: No lymph nodes palpable in the axilla and neck INVESTIGATIONS, reviewed in the clinical context: White count 15.7 hemoglobin 13.2 platelets 516 increased neutrophils potassium 4.0 creatinine 0.56 EKG tracing personally reviewed by me-nonspecific T-wave changes in the anterior leads Chest x-ray film personally reviewed by me-free air below both the diaphragms. Lung may clear Computed tomography scan of the abdomen-moderate to severe gastric wall thickening with poorly distended stomach. Sigmoid colonic diverticula. Pneumoperitoneum Assessment: -This is a patient was started on with upper abdominal pain yesterday with pain going across below both the rib cage is. Pain is referred to the shoulders from the perforation. Strongly suspect gastric perforation. Patient recently has been on steroids for low back pain. Is also smoker. Patient also has been on naproxen. And aspirin. -Essential hypertension. Patient's blood pressure currently running on the lower side. We'll hold off verapamil and-depression and anxiety not otherwise specified -Chronic stable angina for which patient appears to be on Ranexa -Hyperlipidemia -Osteoarthritis -COPD in a current smoker -Chronic nicotine dependence patient cigarette smoker Plan: Patient will need to go to the operating room for surgical intervention. Patient on IV Zosyn. We'll add IV Flagyl. Nicotine patch. DuoNeb. Patient be kept on telemetry. Given the urgency of surgery patient will not want any other cardiac workup at the present time. Add nitro paste. Hold off any NSAIDs. IV PPI. Keep nothing by mouth. Lactated Ringer's at 1 50 mL an hour. Lovenox for DVT prophylaxis care was discussed with the patient. Thank you Dr. Garcia Past Medical History Past Medical History: Cancer, Fibromyalgia, Hyperlipidemia, Hypertension, Osteoarthritis (OA) Additional Past Medical History / Comment(s): arthritis, kidney ca, CHEST AND BA CK PAIN History of Any Multi-Drug Resistant Organisms: None Reported Past Surgical History: Cholecystectomy, Hysterectomy, Tubal Ligation Additional Past Surgical History / Comment(s): RT kidney surgery, COLONOSCOPY Past Anesthesia/Blood Transfusion Reactions: Previous Problems w/ Anesthesia Additional Past Anesthesia/Blood Transfusion Reaction / Comm: SLOW TO WAKE UP Past Psychological History: Anxiety, Depression Smoking Status: Current every day smoker Past Alcohol Use History: None Reported Past Drug Use History: None Reported - Past Family History Mother Family Medical History: Cancer Sister(s) Family Medical History: Cancer Father Family Medical History: Cancer Medications and Allergies Home Medications Medication Instructions Recorded Confirmed Type Naproxen 500 mg PO BID 10/06/14 08/18/20 History PARoxetine HCL [Paroxetine HCl] 20 mg PO DAILY 10/06/14 08/18/20 History Simvastatin 10 mg PO HS 10/06/14 08/18/20 History Aspirin [[place] Aspirin EC] 81 mg PO DAILY 09/01/18 08/18/20 History Ranolazine [Ranexa] 1,000 mg PO BID 03/31/20 08/18/20 History Verapamil HCl [[place] Sr] 240 mg PO DAILY 03/31/20 08/18/20 History Cholecalciferol [Vitamin D3 (25 2,000 unit PO DAILY 07/01/20 08/18/20 History Mcg = 1000 Iu)] Hydrocodone/Acetaminophen [[place] 1 tab PO Q6HR PRN #12 tab 08/13/20 08/18/20 Rx 5-325] Acetaminophen [Tylenol] 500 mg PO Q4-6H PRN 08/18/20 08/18/20 History Ondansetron [Zofran] 4 mg PO Q8H PRN 08/18/20 08/18/20 History Allergies Allergy/AdvReac Type Severity Reaction Status Date / Time codeine Allergy Rash/Hives Verified 08/18/20 10:23 isosorbide AdvReac HEADACHE Verified 08/18/20 10:23 Physical Exam Vitals: Vital Signs Temp Pulse Pulse Resp BP BP Pulse Ox 08/18/20 19:57 16 08/18/20 19:56 97.7 F 71 16 97/54 97 08/18/20 16:00 73 08/18/20 15:27 98.1 F 73 18 110/64 98 08/18/20 13:11 73 16 109/72 97 08/18/20 12:10 98.6 F 79 18 114/72 98 08/18/20 09:19 98.1 F 105 H 18 117/82 99 Intake and Output 08/18/20 08/18/20 08/18/20 06:59 14:59 22:59 Other: Weight 47.627 kg Results CBC & Chem 7: 08/18/20 09:39 08/18/20 09:39 Labs: Abnormal Lab Results - Last 24 Hours (Table) 08/18/20 08/18/20 08/18/20 Range/Units 09:39 09:39 09:39 WBC 15.7 H (3.8-10.6) k/uL Plt Count 516 H (150-450) k/uL Neutrophils # 13.2 H (1.3-7.7) k/uL D-Dimer 2.45 H (<0.60) mg/L FEU Sodium 131 L (137-145) mmol/L Chloride 97 L (98-107) mmol/L Glucose 125 H (74-99) mg/dL
[2020-08-18] MEDS: NITROGLYCERIN OINT 1 INCH/GM PACKET TOPICAL SCH ×2 (22:23→23:48)
[2020-08-18] MEDS: metroNIDAZOLE-NS PMX 500 MG in SALINE 1 100ML.BAG IVPB SCH (22:24)
[2020-08-18] MEDS: ENOXAPARIN 40 MG/0.4 ML SYRINGE SQ SCH (22:24)
[2020-08-18] MEDS: LACTATED RINGERS 1,000 ML IV SCH (22:25)
[2020-08-18] MEDS: NICOTINE 14MG/24HR PATCH TRANSDERM SCH (22:25)
[2020-08-19] MEDS: HYDROmorphone 0.5 MG/0.5 ML SYRINGE IVP PRN ×2 (00:04→04:55)
[2020-08-19] MEDS: metroNIDAZOLE-NS PMX 500 MG in SALINE 1 100ML.BAG IVPB SCH ×3 (04:54→20:56)
[2020-08-19] MEDS: PIPERACILLIN-TAZOBACTAM 3.375 GM in SODIUM CHLORIDE 0.9% 100 ML IVPB SCH ×3 (04:54→20:30)
[2020-08-19] MEDS: IPRATROPIUM-ALBUTEROL 3 ML NEB INHALATION SCH ×4 (08:13→19:32)
[2020-08-19] MEDS: ENOXAPARIN 40 MG/0.4 ML SYRINGE SQ SCH (08:54)
[2020-08-19] MEDS: FLUCONAZOLE IN NACL,ISO-OSM 100 MG in SALINE 1 50ML.BAG IVPB SCH (08:54)
[2020-08-19] MEDS: PANTOPRAZOLE 40 MG/10 ML VIAL IVP SCH ×2 (08:54→20:30)
[2020-08-19] MEDS: NICOTINE 14MG/24HR PATCH TRANSDERM SCH (08:54)
[2020-08-19] MEDS: NITROGLYCERIN OINT 1 INCH/GM PACKET TOPICAL SCH ×3 (08:54→23:45)
--- NOTE | 2020-08-19 08:55 | P.GSHP ---
History of Present Illness H&P Date: 08/18/20 CHIEF COMPLAINT: Chest pain HISTORY OF PRESENT ILLNESS: The patient is a 65 year old female who presented to the hospital following acute onset chest pain that radiated to the bilateral upper chest including bilateral upper abdomen that started yesterday. She reports chronic chest pain including back pain. In fact, she reports chronic back pain where she takes Aleve daily for over one year. She reports her last meal 1 day ago. She reports not really having much of an appetite. She present ed today with history of burning chest pain with radiation to the bilateral upper chest and neck and back. Reports history of dark stools. PAST MEDICAL HISTORY: See list and reviewed PAST SURGICAL HISTORY: See list and reviewed MEDICATIONS: See list and reviewed ALLERGIES: See list and reviewed SOCIAL HISTORY: See list and reviewed FAMILY HISTORY: See list and reviewed REVIEW OF ORGAN SYSTEMS: CONSTITUTIONAL: No fevers or chills. She is underweight. EYES: Denies any trouble with vision. No glasses. HEENT: No difficulties with hearing. No nosebleeds. No difficulty swallowing. RESPIRATORY: Denies pneumonia. Denies any troubles with breathing or dyspnea on exertion. CARDIOVASCULAR: Reports chest pain, palpitations, or recent heart attacks. GASTROINTESTINAL: Reports history of dark stools. GENITOURINARY: Denies any blood in urine or increased urinary frequency. NEUROLOGICAL: Denies any numbness or tingling along the distal extremities. No seizure disorders or headaches. Has chronic pain. MUSCULOSKELETAL: Has back pain, stiffness or joint arthritis. SKIN: No current skin cancer. No rash. PSYCHIATRIC: Has depression. No suicidal thoughts. ENDOCRINE: Denies current thyroid disorders. Denies any blood sugar glucose intolerance. HEME/LYMPHATIC: Denies any lumps and bumps around the neck. No recent deep venous thrombosis. ALLERGY/IMMUNOLOGY: No immunoglobulin therapy. No immune deficiencies. BREAST: Denies current breast lumps, pain or nipple discharge. PHYSICAL EXAM: VITALS: Reviewed CONSTITUTIONAL: Well developed and in no acute distress. EYES: Conjuctivae without sclera icterus. Pupils are equally round and reactive to light. Extraocular movements grossly intact. HEAD, EARS, NOSE, THROAT: Moist buccal mucosa. Head is atraumatic, normocephali c. Hears conversational speech. No nasal drainage. NECK: Supple. No JV distention. No thyroidomegaly. RESPIRATORY: Non-labored respirations and equal bilateral excursions. No gross wheezes. Bilateral chest tenderness on percussion CARDIOVASCULAR: Regular rate and rhythm. ABDOMEN: Soft. Tender epigastrium. No tenderness along the lower quadrant. LYMPH: No neck lymphadenopathy. MUSCULOSKELETAL: Nail and fingers with good capillary refill. SKIN: Warm and well perfused with good skin turgor. NEUROLOGIC: Cranial nerves II through XII grossly intact. Sensation upper and extremities intact. No focal or lateralizing signs. PSYCH: Appropriate affect. Alert and oriented to person, place and time. Displays appropriate insight. CLINCAL LABS: Reviewed. WBC elevated 15.7. Hemoglobin 13.2. D-dimer elevated IMAGING: Independently reviewed CT of the abdomen and pelvis with free air along the upper abdomen and along the inferior stomach. No air around the colon. RADIOLOGY: Report reviewed the CT of the abdomen pelvis demonstrating possible gastric perforation. EKG: Review demonstrated possible anterior ischemia ASSESSMENT: 1. Pneumoperitoneum. 2. History of chronic NSAID use 3. Chronic back pain 4. Abnormal EKG for anterior ischemia PLAN: 1. Surgical intervention exploratory laparotomy was described. Patient does report most of her pain is along her chest. She reports her pain is tolerable. 2. Prolonged nothing by mouth status described which her medications are held. We'll need at least 5+ a nothing by mouth status. TPN PICC line and IV antibiotics ordered. 3. Antibiotics including antifungal Diflucan for suspected gastric perforation. 4. Patient wishes to hold off surgery. Otherwise, surgical intervention nonimprovement or worsening condition. 5. Cardiology consultation for anterior ischemia ordered 6. Patient is elevated risk for perioperative complications due to emergency present Past Medical History Past Medical History: Cancer, Fibromyalgia, Hyperlipidemia, Hypertension, Osteoarthritis (OA) Additional Past Medical History / Comment(s): arthritis, kidney ca, CHEST AND BACK PAIN History of Any Multi-Drug Resistant Organisms: None Reported Past Surgical History: Cholecystectomy, Hysterectomy, Tubal Ligation Additional Past Surgical History / Comment(s): RT kidney surgery, COLONOSCOPY Past Anesthesia/Blood Transfusion Reactions: Previous Problems w/ Anesthesia Additional Past Anesthesia/Blood Transfusion Reaction / Comment(s): SLOW TO WAKE UP Past Psychological History: Anxiety, Depression Smoking Status: Current every day smoker Past Alcohol Use History: None Reported Past Drug Use History: None Reported - Past Family History Mother Family Medical History: Cancer Sister(s) Family Medical History: Cancer Father Family Medical History: Cancer Medications and Allergies Home Medications Medication Instructions Recorded Confirmed Type Naproxen 500 mg PO BID 10/06/14 08/18/20 History PARoxetine HCL [Paroxetine HCl] 20 mg PO DAILY 10/06/14 08/18/20 History Simvastatin 10 mg PO HS 10/06/14 08/18/20 History Aspirin [[place] Aspirin EC] 81 mg PO DAILY 09/01/18 08/18/20 History Ranolazine [Ranexa] 1,000 mg PO BID 03/31/20 08/18/20 History Verapamil HCl [Calan Sr] 240 mg PO DAILY 03/31/20 08/18/20 History Cholecalciferol [Vitamin D3 (25 2,000 unit PO DAILY 07/01/20 08/18/20 History Mcg = 1000 Iu)] Hydrocodone/Acetaminophen [[place] 1 tab PO Q6HR PRN #12 tab 08/13/20 08/18/20 Rx 5-325] Acetaminophen [Tylenol] 500 mg PO Q4-6H PRN 08/18/20 08/18/20 History Ondansetron [Zofran] 4 mg PO Q8H PRN 08/18/20 08/18/20 History Allergies Allergy/AdvReac Type Severity Reaction Status Date / Time codeine Allergy Rash/Hives Verified 08/18/20 10:23 isosorbide AdvReac HEADACHE Verified 08/18/20 10:23 Surgical - Exam Vital Signs Temp Pulse Resp BP Pulse Ox 98.1 F 105 H 18 117/82 99 08/18/20 09:19 08/18/20 09:19 08/18/20 09:19 08/18/20 09:19 08/18/20 09:19 Results - Labs 08/19/20 07:34 08/19/20 07:34 Abnormal Lab Results - Last 24 Hours (Table) 08/18/20 08/18/20 08/18/20 Range/Units 09:39 09:39 09:39 WBC 15.7 H (3.8-10.6) k/uL Plt Count 516 H (150-450) k/uL Neutrophils # 13.2 H (1.3-7.7) k/uL D-Dimer 2.45 H (<0.60) mg/L FEU Sodium 131 L (137-145) mmol/L Chloride 97 L (98-107) mmol/L Glucose 125 H (74-99) mg/dL Diabetes panel 08/18/20 Range/Units 09:39 Sodium 131 L (137-145) mmol/L Potassium 4.0 (3.5-5.1) mmol/L Chloride 97 L (98-107) mmol/L Carbon Dioxide 26 (22-30) mmol/L BUN 11 (7-17) mg/dL Creatinine 0.56 (0.52-1.04) mg/dL Glucose 125 H (74-99) mg/dL Calcium 10.2 (8.4-10.2) mg/dL AST 16 (14-36) U/L ALT 11 (4-34) U/L Alkaline Phosphatase 106 (38-126) U/L Total Protein 7.3 (6.3-8.2) g/dL Albumin 4.2 (3.5-5.0) g/dL Calcium panel 08/18/20 Range/Units 09:39 Calcium 10.2 (8.4-10.2) mg/dL Albumin 4.2 (3.5-5.0) g/dL Pituitary panel 08/18/20 Range/Units 09:39 Sodium 131 L (137-145) mmol/L Potassium 4.0 (3.5-5.1) mmol/L Chloride 97 L (98-107) mmol/L Carbon Dioxide 26 (22-30) mmol/L BUN 11 (7-17) mg/dL Creatinine 0.56 (0.52-1.04) mg/dL Glucose 125 H (74-99) mg/dL Calcium 10.2 (8.4-10.2) mg/dL Adrenal panel 08/18/20 Range/Units 09:39 Sodium 131 L (137-145) mmol/L Potassium 4.0 (3.5-5.1) mmol/L Chloride 97 L (98-107) mmol/L Carbon Dioxide 26 (22-30) mmol/L BUN 11 (7-17) mg/dL Creatinine 0.56 (0.52-1.04) mg/dL Glucose 125 H (74-99) mg/dL Calcium 10.2 (8.4-10.2) mg/dL Total Bilirubin 0.5 (0.2-1.3) mg/dL AST 16 (14-36) U/L ALT 11 (4-34) U/L Alkaline Phosphatase 106 (38-126) U/L Total Protein 7.3 (6.3-8.2) g/dL Albumin 4.2 (3.5-5.0) g/dL Assessment and Plan (1) Elevated d-dimer Current Visit: Yes Status: Acute Code(s): R79.89 - OTHER SPECIFIED ABNORMAL FINDINGS OF BLOOD CHEMISTRY SNOMED Code(s): 485595172 (2) Gastric ulcer Current Visit: Yes Status: Acute Code(s): K25.9 - GASTRIC ULCER, UNSP ACUTE OR CHRONIC, W/O HEMOR OR PERF SNOMED Code(s): 786527965 (3) Pneumoperitoneum Current Visit: Yes Status: Acute Code(s): K66.8 - OTHER SPECIFIED DISORDERS OF PERITONEUM SNOMED Code(s): 09465971 (4) Chronic stomach ulcer due to nonsteroidal anti-inflammatory drug (NSAID) Current Visit: Yes Status: Acute Code(s): K25.7 - CHRONIC GASTRIC ULCER WITHOUT HEMORRHAGE OR PERFORATION; T39.395A - ADVERSE EFFECT OF NONSTEROIDAL ANTI-INFLAMMATORY DRUGS, INIT SNOMED Code(s): 99569256
[2020-08-19 09:22] LABS: HCT 35.1 % (34.0-46.0); HGB 10.9 gm/dL (11.4-16.0); Hypochromasia Moderate; MCHC 31.1 g/dL (31.0-37.0); MCV 90.1 fL (80.0-100.0); Mean Platelet Volume 7.1; Platelet Count 423 k/uL (150-450); RDW 14.5 % (11.5-15.5); WBC 10.5 k/uL (3.8-10.6)
[2020-08-19 09:33] LABS: African American GFR (CKD) >90 (>60 ml/min/1.73 sqM); Anion Gap 4 mmol/L; Blood Urea Nitrogen 15 mg/dL (7-17); Calcium 9.2 mg/dL (8.4-10.2); Carbon Dioxide 29 mmol/L (22-30); Chloride 104 mmol/L (98-107); Glucose 80 mg/dL (74-99); Non-African American GFR(CKD) >90 (>60 ml/min/1.73 sqM); Potassium 4.8 mmol/L (3.5-5.1); Sodium 137 mmol/L (137-145)
--- NOTE | 2020-08-19 10:52 | P.CRDCN ---
History of Present Illness Consult date: 08/19/20 Reason for Consult (text): EKG changes Chief complaint: Bilateral shoulder pain and circumferential rib pain History of present illness: This is a 65-year-old female with documented history of hypertension, hyperlipidemia, kidney cancer, history of nicotine dependence, anxiety and depression who presented to the hospital with bilateral shoulder discomfort and rib pain. Her chest x-ray suggested a possible pneumoperitoneum and therefore the patient underwent a CT of the abdomen and pelvis which revealed confirmation of pneumoperitoneum in greatest in the upper abdominal region. Suspicion for perforation from stomach along the anterior aspect of the fundus. Her EKG on presentation here showed a normal sinus rhythm with ST-T wave changes noted in the anterior leads. We did compared to prior EKGs, patient did not have these changes in the anterior leads in the past. Blood pressure 105/50 with a heart rate in the 60s, respirations 18, 98% on room air. White blood cell count 15.1, hemoglobin 13.2, platelet count 516. D-dimer 2.4 sodium 131, potassium 4.0, BUN 11, creatinine 0.5. Magnesium 2.0 and troponin 0.012 patient is a very active 65-year-old female, she states that she walks stairs, does yard work and gardening work with no suggestion of any exertional dyspnea, no chest discomfort . She had a regular stress test performed 5 years ago which was okay according to the patient. The patient was seen in consultation today by Dr. RAYMON Bass and advised that she was cleared for surgery from cardiology's perspective. We will obtain an echocardiogram with Doppler study. Repeat EKG was also performed at this morning which showed some progression of changes in the STT region of the a nterior leads. Past Medical History Past Medical History: Cancer, Fibromyalgia, Hyperlipidemia, Hypertension, Osteoarthritis (OA) Additional Past Medical History / Comment(s): arthritis, kidney ca, CHEST AND BACK PAIN History of Any Multi-Drug Resistant Organisms: None Reported Past Surgical History: Cholecystectomy, Hysterectomy, Tubal Ligation Additional Past Surgical History / Comment(s): RT kidney surgery, COLONOSCOPY Past Anesthesia/Blood Transfusion Reactions: Previous Problems w/ Anesthesia Additional Past Anesthesia/Blood Transfusion Reaction / Comment(s): SLOW TO WAKE UP Past Psychological History: Anxiety, Depression Smoking Status: Current every day smoker Past Alcohol Use History: None Reported Past Drug Use History: None Reported - Past Family History Mother Family Medical History: Cancer Sister(s) Family Medical History: Cancer Father Family Medical History: Cancer Medications and Allergies Home Medications Medication Instructions Recorded Confirmed Type Naproxen 500 mg PO BID 10/06/14 08/18/20 History PARoxetine HCL [Paroxetine HCl] 20 mg PO DAILY 10/06/14 08/18/20 History Simvastatin 10 mg PO HS 10/06/14 08/18/20 History Aspirin [Viborg Aspirin EC] 81 mg PO DAILY 09/01/18 08/18/20 History Ranolazine [Ranexa] 1,000 mg PO BID 03/31/20 08/18/20 History Verapamil HCl [Calan Sr] 240 mg PO DAILY 03/31/20 08/18/20 History Cholecalciferol [Vitamin D3 (25 2,000 unit PO DAILY 07/01/20 08/18/20 History Mcg = 1000 Iu)] Hydrocodone/Acetaminophen [[place] 1 tab PO Q6HR PRN #12 tab 08/13/20 08/18/20 Rx 5-325] Acetaminophen [Tylenol] 500 mg PO Q4-6H PRN 08/18/20 08/18/20 History Ondansetron [Zofran] 4 mg PO Q8H PRN 08/18/20 08/18/20 History Allergies Allergy/AdvReac Type Severity Reaction Status Date / Time codeine Allergy Rash/Hives Verified 08/18/20 10:23 isosorbide AdvReac HEADACHE Verified 08/18/20 10:23 Physical Exam Vitals: Vital Signs Temp Pulse Pulse Resp BP BP Pulse Ox 08/19/20 08:25 72 08/19/20 08:15 70 08/19/20 08:00 97.3 F L 89 16 102/59 94 L 08/19/20 04:00 98.2 F 69 18 105/57 98 08/19/20 00:00 98.1 F 72 16 92/60 98 08/18/20 19:57 16 08/18/20 19:56 97.7 F 71 16 97/54 97 08/18/20 16:00 73 08/18/20 15:27 98.1 F 73 18 110/64 98 08/18/20 13:11 73 16 109/72 97 08/18/20 12:10 98.6 F 79 18 114/72 98 Intake and Output 08/18/20 08/19/20 08/19/20 22:59 06:59 14:59 Other: # Voids 1 1 Weight 44.9 kg PHYSICAL EXAMINATION: GENERAL: 65-year-old female in no acute distress at the time of my examination HEENT: Head is atraumatic, normocephalic. Pupils equal, round. Sclera anicteric. Conjunctiva are clear. Mucous membranes of the mouth are moist. Neck is supple. There is no elevated jugular venous pressure. No carotid bruit is heard. HEART EXAMINATION: Heart S1, S2 normal. No murmur or gallop heard. CHEST EXAMINATION: Lungs are clear to auscultation and precussion. No chest wall tenderness is noted on palpation or with deep breathing. ABDOMEN: Soft, mild generalized tenderness . Bowel sounds are heard. No organomegaly noted. EXTREMITIES: 2+ peripheral pulses with no evidence of peripheral edema and no calf tenderness noted. NEUROLOGIC patient is awake, alert and oriented 3. . Results 08/19/20 07:34 08/19/20 07:34 CBC 08/19/20 Range/Units 07:34 WBC 10.5 (3.8-10.6) k/uL RBC 3.90 (3.80-5.40) m/uL Hgb 10.9 L (11.4-16.0) gm/dL Hct 35.1 (34.0-46.0) % Plt Count 423 (150-450) k/uL Comprehensive Metabolic Panel 08/19/20 Range/Units 07:34 Sodium 137 (137-145) mmol/L Potassium 4.8 (3.5-5.1) mmol/L Chloride 104 (98-107) mmol/L Carbon Dioxide 29 (22-30) mmol/L BUN 15 (7-17) mg/dL Creatinine 0.61 (0.52-1.04) mg/dL Glucose 80 (74-99) mg/dL Calcium 9.2 (8.4-10.2) mg/dL Current Medications Generic Name Dose Route Start Last Admin Trade Name Freq PRN Reason Stop Dose Admin Albuterol/Ipratropium 3 ml 08/19/20 08:00 08/19/20 08:13 Ipratropium-Albuterol 3 Ml Neb INHALATION 3 ml RT-QID LYNETTE Administration Diphenhydramine HCl 25 mg 08/18/20 18:33 Diphenhydramine 50 Mg/Ml 1 Ml Vial IVP Q6HR PRN Allergy Symptoms Enoxaparin Sodium 40 mg 08/18/20 21:45 08/19/20 08:54 Enoxaparin 40 Mg/0.4 Ml Syringe SQ 40 mg DAILY LYNETTE Administration Hydromorphone HCl 0.5 mg 08/18/20 12:18 08/19/20 04:55 Hydromorphone 0.5 Mg/0.5 Ml Syringe IVP 0.5 mg Q4HR PRN Administration Pain Hydromorphone HCl 1 mg 08/18/20 18:33 Hydromorphone 1 Mg/Ml 1 Ml Syringe IVP Q3HR PRN Moderate to Severe Pain Piperacillin Sod/Tazobactam 100 mls @ 25 mls/hr 08/18/20 20:00 08/19/20 04:54 Sod 3.375 gm/ Sodium Chloride IVPB 25 mls/hr Q8H LYNETTE Administration Fluconazole/Sodium Chloride 50 mls @ 50 mls/hr 08/19/20 09:00 08/19/20 08:54 100 mg/ IV Solution IVPB 50 mls/hr DAILY LYNETTE Administration Lactated Ringer's 1,000 mls @ 150 mls/hr 08/18/20 21:45 08/18/20 22:25 Lactated Ringers IV 150 mls/hr .Q6H40M LYNETTE Administration Metronidazole 500 mg/ IV 100 mls @ 100 mls/hr 08/18/20 21:40 08/19/20 04:54 Solution IVPB 100 mls/hr Q8H LYNETTE Administration Nicotine 1 patch 08/18/20 21:45 08/19/20 08:54 Nicotine 14mg/24hr Patch TRANSDERM 1 patch DAILY LYNETTE Administration Nitroglycerin 0.5 inch 08/18/20 21:38 08/19/20 08:54 Nitroglycerin Oint 1 Inch/Gm Packet TOPICAL 0.5 inch Q8HR LYNETTE Administration Pantoprazole Sodium 40 mg 08/18/20 21:00 08/19/20 08:54 Pantoprazole 40 Mg/10 Ml Vial IVP 40 mg BID LYNETTE Administration Intake and Output 10/21/20 10/22/20 10/22/20 22:59 06:59 14:59 Other: # Voids 1 1 Weight 44.9 kg 08/19/20 07:34 08/19/20 07:34 EKG Interpretations (text) EKG shows normal sinus rhythm with ST-T wave changes noted in the anterior leads Assessment and Plan Plan: Assessment and plan #1 abdominal pain with also pain in the shoulders and rib area with associated nausea. Evidence of pneumo peritoneum, suspicion of a gastric perforation #2 hypertension #3 EKG shows a normal sinus rhythm with ST-T wave changes noted in the anterior leads #4 hyperlipidemia #5 nicotine dependence #6 history of kidney cancer #7 anxiety Plan We will obtain an echocardiogram with Doppler study. Patient was seen and evaluated by Dr. Rosa Bass and linda to proceed with surgery. We will continue to follow. DNP note has been reviewed, I agree with a documented findings and plan of care. Patient was seen and examined.
--- NOTE | 2020-08-19 11:42 | ECHOF ---
Referral Reason:abn ekg MEASUREMENTS -------- HEIGHT: 152.4 cm WEIGHT: 44.5 kg BP: 105/57 RVIDd: 3.0 cm (< 3.3) IVSd: 1.0 cm (0.6 - 1.1) LVIDd: 4.0 cm (3.9 - 5.3) LVPWd: 1.1 cm (0.6 - 1.1) IVSs: 1.6 cm LVIDs: 2.6 cm LVPWs: 1.5 cm LA Diam: 3.0 cm (2.7 - 3.8) LAESV Index (A-L): 21.69 ml/m Ao Diam: 3.3 cm (2.0 - 3.7) AV Cusp: 2.4 cm (1.5 - 2.6) MV EXCURSION: 15.488 mm (> 18.000) MV EF SLOPE: 52 mm/s (70 - 150) EPSS: 0.2 cm MV E Rodrigue: 0.70 m/s MV DecT: 249 ms MV A Rodrigue: 0.88 m/s MV E/A Ratio: 0.79 FINDINGS -------- Sinus rhythm. This was a technically excellent study. The left ventricular size is normal. Left ventricular wall thickness is normal. Overall left vent ricular systolic function is normal with, an EF between 60 - 65 %. The right ventricle is normal in size. Normal LA size by volume 22+/-6 ml/m2. The right atrium is normal in size. Interatrial and interventricular septum intact. The aortic valve is trileaflet and appears structurally normal. The mitral valve is normal. The tricuspid valve appears structurally normal. Trace/mild (physiologic) pulmonic regurgitation. The aortic root size is normal. Normal inferior vena cava with normal inspiratory collapse consistent with estimated right atrial pre ssure of 5 mmHg. There is no pericardial effusion. CONCLUSIONS -------- 1. The left ventricular size is normal. 2. Left ventricular wall thickness is normal. 3. Overall left ventricular systolic function is normal with, an EF between 60 - 65 %. 4. Normal LA size by volume 22+/-6 ml/m2. 5. Interatrial and interventricular septum intact. 6. Trace/mild (physiologic) pulmonic regurgitation. 7. There is no pericardial effusion. SMELTER OPERATOR: Kamala Brennan RDCS
[2020-08-19] MEDS ORDERED: LIDOCAINE 1% INJ 10MG/ML (20 ML MDV) ONE (13:44)
--- NOTE | 2020-08-19 14:07 | P.PN ---
<DerickanaKathy - Last Filed: 08/19/20 14:03> Subjective Progress Note Date: 08/19/20 CHIEF COMPLAINT: Pneumoperitoneum HISTORY OF PRESENT ILLNESS: Patient is reporting improvement in her chest and upper shoulder pain. She does complain of some left-sided rib discomfort. She denies abdominal pain. She has been up and ambulating. She has been taking Aleve daily for over a year for her chronic back pain. Patient is feeling much better than when she came into the hospital. She is currently nothing by mouth. She is afebrile.WBC is 10.5. She's scheduled for PICC line placement and to start TPN PHYSICAL EXAM: VITAL SIGNS: Reviewed GENERAL: Well-developed in no acute distress. HEENT: No sclera icterus. Extraocular movements grossly intact. Moist buccal mucosa. Head is atraumatic, normocephalic. Hears conversational speech. No nasal drainage. NECK: Supple without lymphadenopathy. CHEST: Non-labored respirations and equal bilateral excursions. CARDIOVASCULAR: Palpable 2+ radial pulses. ABDOMEN: Soft. Nondistended. Nontender. MUSCULOSKELETAL: No clubbing or cyanosis. NEUROLOGIC: No focal or lateralizing signs. Cranial nerves II through XII grossly intact. PSYCH: Appropriate affect. Alert and oriented to person, place and time. SKIN: Well perfused. Good skin turgor. ASSESSMENT: 1. Pneumoperitoneum. 2. History of chronic NSAID use 3. Chronic back pain 4. Abnormal EKG for anterior ischemia PLAN: -Patient scheduled for PICC line placement today and to be started on TPN -Keep patient nothing by mouth for now -Check abdominal x-ray in a.m. -Continue to observe patient closely. No surgery scheduled at this time Physician Deli Manager note has been reviewed by physician. Signing provider agrees with the documented findings, assessment, and plan of care. Objective - Vital Signs Vital signs: Vital Signs Temp 97.3 F L 08/19/20 08:00 Pulse 87 08/19/20 12:00 Resp 16 08/19/20 12:00 BP 99/63 08/19/20 12:00 Pulse Ox 98 08/19/20 12:00 Intake & Output 08/18/20 08/19/20 08/19/20 18:59 06:59 18:59 Weight 47.627 kg 44.9 kg 44.9 kg Other: # Voids 1 - Labs CBC & Chem 7: 08/19/20 07:34 08/19/20 07:34 Labs: Abnormal Lab Results - Last 24 Hours (Table) 08/19/20 Range/Units 07:34 Hgb 10.9 L (11.4-16.0) gm/dL Microbiology - Last 24 Hours (Table) 08/18/20 11:50 Blood Culture - Preliminary Blood No Growth after 24 hours <Kacie Garcia - Last Filed: 08/20/20 20:27> Subjective Patient seen and evaluated with above. HISTORY OF PRESENT ILLNESS: The patient is a 65 year old female who presented with pneumoperitoneum including chest pain and bilateral upper abdominal pain. She reports moderate improvement of her chest pain. "I feel fine!" She is ambulating without difficulty. No nausea or vomiting. No recent bowel movements. She is feeling better. REVIEW OF ORGAN SYSTEMS: No fevers or chills. No nausea or vomiting. No productive sputum. PHYSICAL EXAM: VITALS: Reviewed CONSTITUTIONAL: Well developed and in no acute distress. EYES: Conjuctivae without sclera icterus. Pupils are equally round and reactive to light. Extraocular movements grossly intact. HEAD, EARS, NOSE, THROAT: Moist buccal mucosa. Head is atraumatic, normocephalic. Hears conversational speech. No nasal drainage. NECK: Supple. No JV distention RESPIRATORY: Non-labored respirations and equal bilateral excursions. No gross wheezes. Decreased bilateral chest discomfort. CARDIOVASCULAR: Regular rate and rhythm. ABDOMEN: Soft. No peritonitis. MUSCULOSKELETAL: No clubbing, cyanosis, or edema. SKIN: Warm and well perfused with good skin turgor. NEUROLOGIC: Cranial nerves II through XII grossly intact. Sensation upper and extremities intact. No focal or lateralizing signs. PSYCH: Appropriate affect. Alert and oriented to person, place and time. Displays appropriate insight. CLINCAL LABS: Reviewed. WBC elevated 15.7 now normal 10.5. Hgb down 13.2 to 10.9 ASSESSMENT: 1. Pneumoperitoneum. 2. History of chronic NSAID use 3. Chronic back pain 4. Abnormal EKG for anterior ischemia PLAN: 1. Overall, she is feeling much better. Surgery on hold as she reports no abdominal pain. 2. Strict NPO with TPN and antibiotics in the interim 3. Patient is ambulating frequently 4. Surgical intervention for any deteriorating condition. Objective - Vital Signs Vital signs: Vital Signs Temp 98.1 F 08/20/20 04:00 Pulse 72 08/20/20 19:15 Resp 16 08/20/20 15:12 BP 119/67 08/20/20 12:00 Pulse Ox 99 08/20/20 12:00 Intake & Output 08/20/20 08/20/20 08/21/20 06:59 18:59 06:59 Intake Total 2480 Balance 2480 Weight 46.2 kg 46.2 kg Intake: Intake, IV Titration 2480 Amount ACETAMINOPHEN IV (For NPO 1180 ) 650 mg In Empty Bag 1 bag @ 260 mls/hr IVPB Q6H LYNETTE Rx#:[id number] Lactated Ringers 1,000 ml 1000 @ 150 mls/hr IV .Q6H40M LYNETTE Rx#:[id number] Piperacillin-Tazobactam 3 200 .375 gm In Sodium Chloride 0.9% 100 ml @ 25 mls/hr IVPB Q8H LYNETTE Rx#: [id number] metroNIDAZOLE-NS PMX 500 100 mg In Saline 1 100ml.bag @ 100 mls/hr IVPB Q8H LYNETTE Rx#:[id number] Other: # Voids 3 - Labs CBC & Chem 7: 08/20/20 10:03 08/20/20 10:02 Labs: Abnormal Lab Results - Last 24 Hours (Table) 08/20/20 08/20/20 08/20/20 Range/Units 00:22 06:12 10:02 RBC (3.80-5.40) m/uL Hgb (11.4-16.0) gm/dL Hct (34.0-46.0) % Lymphocytes # (1.0-4.8) k/uL Sodium 135 L (137-145) mmol/L Creatinine 0.47 L (0.52-1.04) mg/dL Glucose 136 H (74-99) mg/dL POC Glucose (mg/dL) 163 H 145 H (75-99) mg/dL Iron 37 L (50-170) ug/dL 08/20/20 Range/Units 10:03 RBC 3.73 L (3.80-5.40) m/uL Hgb 10.5 L (11.4-16.0) gm/dL Hct 33.2 L (34.0-46.0) % Lymphocytes # 0.7 L (1.0-4.8) k/uL Sodium (137-145) mmol/L Creatinine (0.52-1.04) mg/dL Glucose (74-99) mg/dL POC Glucose (mg/dL) (75-99) mg/dL Iron (50-170) ug/dL Microbiology - Last 24 Hours (Table) 08/18/20 11:50 Blood Culture - Preliminary Blood No Growth after 48 hours Assessment and Plan (1) Elevated d-dimer Current Visit: Yes Status: Acute Code(s): R79.89 - OTHER SPECIFIED ABNORMAL FINDINGS OF BLOOD CHEMISTRY SNOMED Code(s): 961174143 (2) Gastric ulcer Current Visit: Yes Status: Acute Code(s): K25.9 - GASTRIC ULCER, UNSP ACUTE OR CHRONIC, W/O HEMOR OR PERF SNOMED Code(s): 648791805 (3) Pneumoperitoneum Current Visit: Yes Status: Acute Code(s): K66.8 - OTHER SPECIFIED DISORDERS OF PERITONEUM SNOMED Code(s): 95489177 (4) Chronic stomach ulcer due to nonsteroidal anti-inflammatory drug (NSAID) Current Visit: Yes Status: Acute Code(s): K25.7 - CHRONIC GASTRIC ULCER WITHOUT HEMORRHAGE OR PERFORATION; T39.395A - ADVERSE EFFECT OF NONSTEROIDAL ANTI-INFLAMMATORY DRUGS, INIT SNOMED Code(s): 83641101
--- NOTE | 2020-08-19 14:23 | IR ---
PICC LINE PLACEMENT: HISTORY: TPN antibiotic therapy PROCEDURE: Ultrasound and fluoroscopic guidance of PICC line placement. COMPLICATIONS: None ANESTHESIA: 1. 1% Lidocaine locally. FINDINGS/TECHNIQUE: The procedure was explained to the patient. The risks, complications, benefits and alternatives were discussed and any questions were answered. Informed consent was obtained. The patient was placed supine on the fluoroscopic table and prepped and draped in the usual sterile fas ion. Utilizing a 21 gauge needle and sonographic and fluoroscopic guidance, access in the vein was achieved and there is placement of a 0.018 guidewire. The vein is patent. A 4-F sheath was placed o asad the guidewire. The guidewire and dilator were removed and a 4-F. PICC line was placed through th e sheath with the tip at the level of the SVC. The sheath was removed, the catheter was flushed and sutured into position. The patient was stable throughout the procedure and remained stable upon disc harge from the Department of Radiology. The vein puncture was patent under ultrasound. A martínez scale image was obtained to document patency of the vein punctured. All elements of the maximal barrier technique were utilized. FLUOROSCOPY TIME: 0.1 minute and one image submitted IMPRESSION: Successful PICC line placement under ultrasound and fluoroscopic guidance.
[2020-08-19 15:38] LABS: ALT 14 U/L (4-34); AST 21 U/L (14-36); African American GFR (CKD) >90 (>60 ml/min/1.73 sqM); Albumin 3.5 g/dL (3.5-5.0); Alkaline Phosphatase 99 U/L (38-126); Anion Gap 7 mmol/L; Blood Urea Nitrogen 15 mg/dL (7-17); Calcium 9.5 mg/dL (8.4-10.2); Carbon Dioxide 26 mmol/L (22-30); Chloride 104 mmol/L (98-107); Glucose 105 mg/dL (74-99); Non-African American GFR(CKD) >90 (>60 ml/min/1.73 sqM); Phosphorus 3.3 mg/dL (2.5-4.5); Potassium 3.8 mmol/L (3.5-5.1); Sodium 137 mmol/L (137-145); Total Bilirubin 0.4 mg/dL (0.2-1.3); Total Protein 6.5 g/dL (6.3-8.2)
[2020-08-19 15:44] LABS: Ionized Calcium 5.1 mg/dL (4.5-5.3)
[2020-08-19 15:49] LABS: Triglycerides 128 mg/dL (<150)
[2020-08-19] MEDS: ACETAMINOPHEN IV (For NPO) 650 MG in EMPTY BAG 1 BAG IVPB SCH ×2 (16:43→20:30)
[2020-08-19] MEDS ORDERED: MVI, ADULT NO.4 WITH VIT K 10 ML, TRACE (CONC-1ML/DOSE) 1 ML in AMINO ACID 5%-D15W+LYTE... IV SCH ×3 (17:00)
[2020-08-19] MEDS: LACTATED RINGERS 1,000 ML IV SCH ×2 (19:25→19:27)
--- NOTE | 2020-08-19 20:10 | P.PN ---
Progress Note - Text Progress Note Date: 08/19/20 - Chief Complaint Abdominal pain Consultation: This is a pleasant 65-year-old patient of Dr. Stewart. Chronic stable medical conditions include fibromyalgia, hypertension, hyperlipidemia, osteoarthritis, kidney cancer that was removed, osteoarthritis chronic low back pain. Long- standing smoker. Patient started on yesterday with increasing epigastric pain down to below the rib cage also refer to the shoulder. A lot of nausea. This presented to ER earlier today. X-ray and computed tomography scan of the abdomen showed free air and present of thickened gastric wall. Continues to have epigastric pain. No obvious fever and chills. Patient recently has been o n steroids for her back pain exacerbation. Admitted with what is now felt to be perforated gastric ulcer. Every 3 hours. She was started on IV Zosyn and Flagyl. Seen by Dr. Garcia general surgery. To be managed conservatively at present. Today-laying in bed. Pain better control. Has been out of bed. No nausea vomiting. Getting IV fluids. Review of systems: Was done for constitutional, cardiovascular, GI, pulmonary. relevant finding as above Active Medications Albuterol/Ipratropium (Ipratropium-Albuterol 3 Ml Neb) 3 ml INHALATION RT-QID LYNETTE Last Admin: 08/19/20 19:32 Dose: 3 ml Documented by: Diphenhydramine HCl (Diphenhydramine 50 Mg/Ml 1 Ml Vial) 25 mg IVP Q6HR PRN PRN Reason: Allergy Symptoms Enoxaparin Sodium (Enoxaparin 40 Mg/0.4 Ml Syringe) 40 mg SQ DAILY LYNETTE Last Admin: 08/19/20 08:54 Dose: 40 mg Documented by: Hydromorphone HCl (Hydromorphone 0.5 Mg/0.5 Ml Syringe) 0.5 mg IVP Q4HR PRN PRN Reason: Pain Last Admin: 08/19/20 04:55 Dose: 0.5 mg Documented by: Hydromorphone HCl (Hydromorphone 1 Mg/Ml 1 Ml Syringe) 1 mg IVP Q3HR PRN PRN Reason: Moderate to Severe Pain Piperacillin Sod/Tazobactam (Sod 3.375 gm/ Sodium Chloride) 100 mls @ 25 mls/hr IVPB Q8H LYNETTE Last Admin: 08/19/20 12:24 Dose: 25 mls/hr Documented by: Fluconazole/Sodium Chloride (100 mg/ IV Solution) 50 mls @ 50 mls/hr IVPB DAILY [facility] Last Admin: 08/19/20 08:54 Dose: 50 mls/hr Documented by: Lactated Ringer's (Lactated Ringers) 1,000 mls @ 150 mls/hr IV .Q6H40M [facility] Last Admin: 08/19/20 19:27 Dose: 150 mls/hr Documented by: Metronidazole 500 mg/ IV (Solution) 100 mls @ 100 mls/hr IVPB Q8H [facility] Last Admin: 08/19/20 12:23 Dose: 100 mls/hr Documented by: Acetaminophen 650 mg/ IV (Solution) 65 mls @ 260 mls/hr IVPB Q6H [facility] Stop: 08/20/20 08:14 Last Admin: 08/19/20 16:43 Dose: 260 mls/hr Documented by: Parenteral Vitamin Supplement 10 ml/ Chromium/Copper/Manganese/Seleni/Zn 1 ml/Amino Ac/Electrol/Dextrose/Calcium 1,011 mls @ 30 mls/hr IV .Q24H [facility] Stop: 08/20/20 16:59 Last Admin: 08/19/20 17:33 Dose: 30 mls/hr Documented by: Fat Emulsion Intravenous (Lipids 20%) 250 mls @ 20.833 mls/hr IV MoWeFr [facility] Parenteral Vitamin Supplement 10 ml/ Chromium/Copper/Manganese/Seleni/Zn 1 ml/Amino Ac/Electrol/Dextrose/Calcium 1,011 mls @ 60 mls/hr IV .BY DURATION [facility] Amino Ac/Electrol/Dextrose/Calcium (Clinimix E 5%-D15% Solution) 1,000 mls @ 60 mls/hr IV .BY DURATION [facility] Nicotine (Nicotine 14mg/24hr Patch) 1 patch TRANSDERM DAILY [facility] Last Admin: 08/19/20 08:54 Dose: 1 patch Documented by: Nitroglycerin (Nitroglycerin Oint 1 Inch/Gm Packet) 0.5 inch TOPICAL Q8HR [facility] Last Admin: 08/19/20 16:42 Dose: 0.5 inch Documented by: Pantoprazole Sodium (Pantoprazole 40 Mg/10 Ml Vial) 40 mg IVP BID [facility] Last Admin: 08/19/20 08:54 Dose: 40 mg Documented by: Physical examination: VITAL SIGNS: 97.3, 89, 16, 102/59, 94% room air GENERAL: Laying in bed, more comfortable today EYES: Pupils equal. Conjunctiva normal. NECK: JVD not raised; masses not palpable. HEART: First and second heart sounds are normal; no edema. LUNGS: Respiratory rate increased; decreased breath sounds. ABDOMEN: Soft, decreased epigastric tenderness, no guarding rigidity, liver spleen not palpable, no masses palpable. PSYCH: Alert and oriented x3; mood and affect tiredl. INVESTIGATIONS, reviewed in the clinical context: White count 10.5 hemoglobin 10.9 potassium 3.8 creatinine 0.55 Admission testing White count 15.7 hemoglobin 13.2 platelets 516 increased neutrophils potassium 4.0 creatinine 0.56 EKG tracing personally reviewed by me-nonspecific T-wave changes in the anterior leads Chest x-ray film personally reviewed by me-free air below both the diaphragms. Lung may clear Computed tomography scan of the abdomen-moderate to severe gastric wall thickening with poorly distended stomach. Sigmoid colonic diverticula. Pneumoperitoneum Assessment: -Suspected perforated gastric ulcer in patient's risk factors include , smoker. Recent steroids, , naproxen.,aspirin. -Essential hypertension. Patient's blood pressure currently running on the lower side. We'll hold off verapamil and -depression and anxiety not otherwise specified -Chronic stable angina for which patient appears to be on Ranexa -Hyperlipidemia -Osteoarthritis -COPD in a current smoker -Chronic nicotine dependence patient cigarette smoker Plan: Patient on IV Flagyl, IV Zosyn. Started on TPN. Nonoperative management per surgery. IV fluids. Thank you Dr. Garcia
[2020-08-20 00:34] LABS: Glucose,Whole Blood 163 mg/dL (75-99)
[2020-08-20] MEDS: ACETAMINOPHEN IV (For NPO) 650 MG in EMPTY BAG 1 BAG IVPB SCH ×2 (02:57→12:22)
[2020-08-20] MEDS: LACTATED RINGERS 1,000 ML IV SCH ×4 (02:57→22:51)
[2020-08-20] MEDS: PIPERACILLIN-TAZOBACTAM 3.375 GM in SODIUM CHLORIDE 0.9% 100 ML IVPB SCH ×3 (03:18→22:48)
[2020-08-20] MEDS: metroNIDAZOLE-NS PMX 500 MG in SALINE 1 100ML.BAG IVPB SCH ×3 (06:11→21:08)
[2020-08-20 06:13] LABS: Glucose,Whole Blood 145 mg/dL (75-99)
[2020-08-20] MEDS: IPRATROPIUM-ALBUTEROL 3 ML NEB INHALATION SCH ×4 (06:53→19:06)
[2020-08-20] MEDS: NICOTINE 14MG/24HR PATCH TRANSDERM SCH (08:47)
[2020-08-20] MEDS: FAT EMULSION 20% 250 ML IV SCH (08:47)
[2020-08-20] MEDS: NITROGLYCERIN OINT 1 INCH/GM PACKET TOPICAL SCH ×2 (08:47→16:49)
[2020-08-20] MEDS: ENOXAPARIN 40 MG/0.4 ML SYRINGE SQ SCH (08:47)
[2020-08-20] MEDS: PANTOPRAZOLE 40 MG/10 ML VIAL IVP SCH ×2 (08:48→21:08)
[2020-08-20] MEDS: FLUCONAZOLE IN NACL,ISO-OSM 100 MG in SALINE 1 50ML.BAG IVPB SCH (08:48)
--- NOTE | 2020-08-20 10:15 | PN ---
PROGRESS NOTE This lady has a pneumoperitoneum, possible a perforated duodenal ulcer and is being considered for surgery. She is a moderate risk. No contraindication. Advised cautious fluid administration and optimal BP control perioperatively. Echo revealed preserved systolic function. Patient's nutritional status is being addressed at this time and we are not sure about the date of surgery. Cardiac-rodriguez, I think she is stable. Her ejection fraction is in the 60%-65% range without any significant valvular disease. I am recommending cautious fluid administration and optimal BP control perioperatively. MMODL / IJN: [id number] /
[2020-08-20 11:14] LABS: African American GFR (CKD) >90 (>60 ml/min/1.73 sqM); Anion Gap 4 mmol/L; Blood Urea Nitrogen 9 mg/dL (7-17); Calcium 9.2 mg/dL (8.4-10.2); Carbon Dioxide 25 mmol/L (22-30); Chloride 106 mmol/L (98-107); Glucose 136 mg/dL (74-99); Magnesium 2.1 mg/dL (1.6-2.3); Non-African American GFR(CKD) >90 (>60 ml/min/1.73 sqM); Phosphorus 2.7 mg/dL (2.5-4.5); Potassium 3.7 mmol/L (3.5-5.1); Sodium 135 mmol/L (137-145)
--- NOTE | 2020-08-20 11:43 | XR ---
EXAMINATION TYPE: XR abdomen 2V DATE OF EXAM: 08/20/2020 6:30 AM CLINICAL HISTORY: Pneumoperitoneum follow-up TECHNIQUE: Supine images of the abdomen and pelvis were obtained COMPARISON: CT abdomen pelvis 08/18/2020. FINDINGS: There is small persistent pneumoperitoneum under the bilateral hemidiaphragms. Scattered ga s is seen in non-distended small bowel loops. Gas and fecal material is seen in non-distended colon. Right upper quadrant surgical clips. There is no visceromegaly. The lung bases are clear. Degenerativ e changes of lumbosacral spine. IMPRESSION: 1. Persistent small pneumoperitoneum under the right and left hemidiaphragms. 2. Nonobstructive bowel gas pattern.
[2020-08-20 11:50] LABS: Basophils % (A) 0 %; Eosinophils # (A) 0.4 k/uL (0-0.7); Eosinophils % (A) 4 %; HCT 33.2 % (34.0-46.0); HGB 10.5 gm/dL (11.4-16.0); Hypochromasia Slight; Lymphocytes # (A) 0.7 k/uL (1.0-4.8); Lymphocytes % (A) 7 %; MCH 28.2 pg (25.0-35.0); MCHC 31.7 g/dL (31.0-37.0); Mean Platelet Volume 7.6; Monocytes # (A) 0.4 k/uL (0-1.0); Monocytes % (A) 5 %; Neutrophils # (A) 7.7 k/uL (1.3-7.7); Neutrophils % (A) 83 %; Platelet Count 390 k/uL (150-450); RBC 3.73 m/uL (3.80-5.40); RDW 14.4 % (11.5-15.5); WBC 9.2 k/uL (3.8-10.6)
[2020-08-20] MEDS ORDERED: POTASSIUM CHLORIDE 20 MEQ in WATER FOR INJECTION 1 100ML.BAG IVPB ONE (12:00)
--- NOTE | 2020-08-20 14:33 | P.PN ---
<MonicaKathy matias - Last Filed: 08/20/20 14:30> Subjective Progress Note Date: 08/20/20 CHIEF COMPLAINT: Pneumoperitoneum HISTORY OF PRESENT ILLNESS: Patient's pain continues to improve each day. She is up and sitting at bedside chair. She is still reporting the pain located under the left rib cage. She is having bowel movements. She is passing gas. She denies any nausea vomiting. She has been up and ambulating. She is currently nothing by mouth and receiving TPN for nutrition support. Patient is afebrile.WBC 9.2 Abdominal x-ray: Persistent small pneumoperitoneum under the right and left hemidiaphragms. nonobstructive bowel gas pattern PHYSICAL EXAM: VITAL SIGNS: Reviewed GENERAL: Well-developed in no acute distress. HEENT: No sclera icterus. Extraocular movements grossly intact. Moist buccal mucosa. Head is atraumatic, normocephalic. Hears conversational speech. No nasal drainage. NECK: Supple without lymphadenopathy. CHEST: Non-labored respirations and equal bilateral excursions. CARDIOVASCULAR: Palpable 2+ radial pulses. ABDOMEN: Soft. Nondistended. Nontender. MUSCULOSKELETAL: No clubbing or cyanosis. NEUROLOGIC: No focal or lateralizing signs. Cranial nerves II through XII g rossly intact. PSYCH: Appropriate affect. Alert and oriented to person, place and time. SKIN: Well perfused. Good skin turgor. ASSESSMENT: 1. Pneumoperitoneum. 2. History of chronic NSAID use 3. Chronic back pain 4. Abnormal EKG for anterior ischemia PLAN: -continue TPN for nutrition support -Keep patient nothing by mouth for now -Continue to observe patient closely. No surgery scheduled at this time Physician Segmental Wall Installer note has been reviewed by physician. Signing provider agrees with the documented findings, assessment, and plan of care. Objective - Vital Signs Vital signs: Vital Signs Temp 98.1 F 08/20/20 04:00 Pulse 70 08/20/20 11:18 Resp 16 08/20/20 11:42 BP 117/68 08/20/20 08:00 Pulse Ox 99 08/20/20 08:00 Intake & Output 08/19/20 08/20/20 08/20/20 18:59 06:59 18:59 Intake Total 2480 Balance 2480 Weight 44.9 kg 46.2 kg 46.2 kg Intake: Intake, IV Titration 2480 Amount ACETAMINOPHEN IV (For NPO 1180 ) 650 mg In Empty Bag 1 bag @ 260 mls/hr IVPB Q6H [facility] Rx#:[id number] Lactated Ringers 1,000 ml 1000 @ 150 mls/hr IV .Q6H40M [facility] Rx#:[id number] Piperacillin-Tazobactam 3 200 .375 gm In Sodium Chloride 0.9% 100 ml @ 25 mls/hr IVPB Q8H [facility] Rx#: [id number] metroNIDAZOLE-NS PMX 500 100 mg In Saline 1 100ml.bag @ 100 mls/hr IVPB Q8H [facility] Rx#:[id number] Other: # Voids 1 3 - Labs CBC & Chem 7: 08/20/20 10:03 08/20/20 10:02 Labs: Abnormal Lab Results - Last 24 Hours (Table) 08/19/20 08/20/20 08/20/20 Range/Units 15:21 00:22 06:12 RBC (3.80-5.40) m/uL Hgb (11.4-16.0) gm/dL Hct (34.0-46.0) % Lymphocytes # (1.0-4.8) k/uL Sodium (137-145) mmol/L Creatinine (0.52-1.04) mg/dL Glucose 105 H (74-99) mg/dL POC Glucose (mg/dL) 163 H 145 H (75-99) mg/dL 08/20/20 08/20/20 Range/Units 10:02 10:03 RBC 3.73 L (3.80-5.40) m/uL Hgb 10.5 L (11.4-16.0) gm/dL Hct 33.2 L (34.0-46.0) % Lymphocytes # 0.7 L (1.0-4.8) k/uL Sodium 135 L (137-145) mmol/L Creatinine 0.47 L (0.52-1.04) mg/dL Glucose 136 H (74-99) mg/dL POC Glucose (mg/dL) (75-99) mg/dL Microbiology - Last 24 Hours (Table) 08/18/20 11:50 Blood Culture - Preliminary Blood No Growth after 48 hours <Kacie Garcia - Last Filed: 08/20/20 20:36> Subjective Patient seen and evaluated with above. Additional documentation below. HISTORY OF PRESENT ILLNESS: The patient is a 65 year old female admitted for pneumoperitoneum. No nausea or vomiting. She is exercising in bed. She denies any abdominal pain. She reports some pressure along her left chest. She has her PICC line and receiving TPN and antibiotics. REVIEW OF ORGAN SYSTEMS: No fevers or chills. She is having bowel movements. No nausea or vomiting. PHYSICAL EXAM: VITALS: Reviewed CONSTITUTIONAL: Well developed and in no acute distress. EYES: Conjuctivae without sclera icterus. Pupils are equally round and reactive to light. Extraocular movements grossly intact. HEAD, EARS, NOSE, THROAT: Moist buccal mucosa. Head is atraumatic, normocephalic. Hears conversational speech. No nasal drainage. She is edentulous. NECK: Supple. No JV distention RESPIRATORY: Non-labored respirations and equal bilateral excursions. CARDIOVASCULAR: Regular rate and rhythm. ABDOMEN: Soft. No peritonitis. MUSCULOSKELETAL: No clubbing, cyanosis, or edema. SKIN: Warm and well perfused with good skin turgor. NEUROLOGIC: Cranial nerves II through XII grossly intact. Sensation upper and extremities intact. No focal or lateralizing signs. PSYCH: Appropriate affect. Alert and oriented to person, place and time. Displays appropriate insight. CLINCAL LABS: Reviewed. WBC elevated 15.7 down to 10.5 to 9.2. Hgb stable 10.5. STUDIES: Abdominal Xray independently reviewed with stable air under diaphragm. ASSESSMENT: 1. Pneumoperitoneum 2. History of chronic NSAID use 3. Chronic back pain 4. Abnormal EKG for anterior ischemia PLAN: 1. Strict NPO status with expection of mouth swabs described. 2. Continue Zosyn and Diflucan for antibiotic and antifungal coverage 3. In patient hospitalization over 5 to 7 days reviewed. Objective - Vital Signs Vital signs: Vital Signs Temp 98.1 F 08/20/20 04:00 Pulse 72 08/20/20 19:15 Resp 16 08/20/20 15:12 BP 119/67 08/20/20 12:00 Pulse Ox 99 08/20/20 12:00 Intake & Output 08/20/20 08/20/20 08/21/20 06:59 18:59 06:59 Intake Total 2480 Balance 2480 Weight 46.2 kg 46.2 kg Intake: Intake, IV Titration 2480 Amount ACETAMINOPHEN IV (For NPO 1180 ) 650 mg In Empty Bag 1 bag @ 260 mls/hr IVPB Q6H [facility] Rx#:[id number] Lactated Ringers 1,000 ml 1000 @ 150 mls/hr IV .Q6H40M [facility] Rx#:[id number] Piperacillin-Tazobactam 3 200 .375 gm In Sodium Chloride 0.9% 100 ml @ 25 mls/hr IVPB Q8H [facility] Rx#: [id number] metroNIDAZOLE-NS PMX 500 100 mg In Saline 1 100ml.bag @ 100 mls/hr IVPB Q8H [facility] Rx#:[id number] Other: # Voids 3 - Labs CBC & Chem 7: 08/20/20 10:03 08/20/20 10:02 Labs: Abnormal Lab Results - Last 24 Hours (Table) 08/20/20 08/20/20 08/20/20 Range/Units 00:22 06:12 10:02 RBC (3.80-5.40) m/uL Hgb (11.4-16.0) gm/dL Hct (34.0-46.0) % Lymphocytes # (1.0-4.8) k/uL Sodium 135 L (137-145) mmol/L Creatinine 0.47 L (0.52-1.04) mg/dL Glucose 136 H (74-99) mg/dL POC Glucose (mg/dL) 163 H 145 H (75-99) mg/dL Iron 37 L (50-170) ug/dL 08/20/20 Range/Units 10:03 RBC 3.73 L (3.80-5.40) m/uL Hgb 10.5 L (11.4-16.0) gm/dL Hct 33.2 L (34.0-46.0) % Lymphocytes # 0.7 L (1.0-4.8) k/uL Sodium (137-145) mmol/L Creatinine (0.52-1.04) mg/dL Glucose (74-99) mg/dL POC Glucose (mg/dL) (75-99) mg/dL Iron (50-170) ug/dL Microbiology - Last 24 Hours (Table) 08/18/20 11:50 Blood Culture - Preliminary Blood No Growth after 48 hours Assessment and Plan (1) Elevated d-dimer Current Visit: Yes Status: Acute Code(s): R79.89 - OTHER SPECIFIED ABNORMAL FINDINGS OF BLOOD CHEMISTRY SNOMED Code(s): 162658314 (2) Gastric ulcer Current Visit: Yes Status: Acute Code(s): K25.9 - GASTRIC ULCER, UNSP ACUTE OR CHRONIC, W/O HEMOR OR PERF SNOMED Code(s): 861518523 (3) Pneumoperitoneum Current Visit: Yes Status: Acute Code(s): K66.8 - OTHER SPECIFIED DISORDERS OF PERITONEUM SNOMED Code(s): 11243972 (4) Chronic stomach ulcer due to nonsteroidal anti-inflammatory drug (NSAID) Current Visit: Yes Status: Acute Code(s): K25.7 - CHRONIC GASTRIC ULCER WITHOUT HEMORRHAGE OR PERFORATION; T39.395A - ADVERSE EFFECT OF NONSTEROIDAL ANTI-INFLAMMATORY DRUGS, INIT SNOMED Code(s): 91124426
[2020-08-20 15:47] LABS: % Iron Saturation 12.98 (12.00-45.00); Iron 37 ug/dL (50-170); Total Iron Binding Capacity 285 ug/dL (228-460)
[2020-08-20 15:55] LABS: Ferritin 76.4 ng/mL (10.0-291.0)
[2020-08-20] MEDS: 1: MVI, ADULT NO.4 WITH VIT K 10 ML, TRACE (CONC-1ML/DOSE) 1 ML in AMINO ACID 5%-D15W+LY IV SCH ×3 (16:49)
--- NOTE | 2020-08-20 22:38 | P.PN ---
Progress Note - Text Progress Note Date: 08/20/20 - Chief Complaint Abdominal pain Consultation: This is a pleasant 65-year-old patient of Dr. Stewart. Chronic stable medical conditions include fibromyalgia, hypertension, hyperlipidemia, osteoarthritis, kidney cancer that was removed, osteoarthritis chronic low back pain. Long- standing smoker. Patient started on yesterday with increasing epigastric pain down to below the rib cage also refer to the shoulder. A lot of nausea. This presented to ER earlier today. X-ray and computed tomography scan of the abdomen showed free air and present of thickened gastric wall. Continues to have epigastric pain. No obvious fever and chills. Patient recently has been o n steroids for her back pain exacerbation. Admitted with what is now felt to be perforated gastric ulcer. 3.. She was started on IV Zosyn and Flagyl. Seen by Dr. Garcia general surgery. To be m anaged conservatively at present. She made nothing by mouth. Today-epigastric pain is better. Eating IV antibiotics. Remains nothing by mouth. Sitting up in a chair. No nausea vomiting. Has been up to the bathroom. Review of systems: Was done for constitutional, cardiovascular, GI, pulmonary. relevant finding as above Active Medications Albuterol/Ipratropium (Ipratropium-Albuterol 3 Ml Neb) 3 ml INHALATION RT-QID [facility] Last Admin: 08/20/20 19:06 Dose: 3 ml Documented by: Diphenhydramine HCl (Diphenhydramine 50 Mg/Ml 1 Ml Vial) 25 mg IVP Q6HR PRN PRN Reason: Allergy Symptoms Enoxaparin Sodium (Enoxaparin 40 Mg/0.4 Ml Syringe) 40 mg SQ DAILY [facility] Last Admin: 08/20/20 08:47 Dose: 40 mg Documented by: Hydromorphone HCl (Hydromorphone 0.5 Mg/0.5 Ml Syringe) 0.5 mg IVP Q4HR PRN PRN Reason: Pain Last Admin: 08/19/20 04:55 Dose: 0.5 mg Documented by: Hydromorphone HCl (Hydromorphone 1 Mg/Ml 1 Ml Syringe) 1 mg IVP Q3HR PRN PRN Reason: Moderate to Severe Pain Piperacillin Sod/Tazobactam (Sod 3.375 gm/ Sodium Chloride) 100 mls @ 25 mls/hr IVPB Q8H [facility] Last Admin: 08/20/20 16:45 Dose: 25 mls/hr Documented by: Fluconazole/Sodium Chloride (100 mg/ IV Solution) 50 mls @ 50 mls/hr IVPB DAILY [facility] Last Admin: 08/20/20 08:48 Dose: 50 mls/hr Documented by: Lactated Ringer's (Lactated Ringers) 1,000 mls @ 150 mls/hr IV .Q6H40M [facility] Last Admin: 08/20/20 16:51 Dose: 150 mls/hr Documented by: Metronidazole 500 mg/ IV (Solution) 100 mls @ 100 mls/hr IVPB Q8H [facility] Last Admin: 08/20/20 21:08 Dose: 100 mls/hr Documented by: Fat Emulsion Intravenous (Lipids 20%) 250 mls @ 20.833 mls/hr IV MoWeFr [facility] Last Admin: 08/20/20 08:47 Dose: 20.833 mls/hr Documented by: Parenteral Vitamin Supplement 10 ml/ Chromium/Copper/Manganese/Seleni/Zn 1 ml/Amino Ac/Electrol/Dextrose/Calcium 1,011 mls @ 60 mls/hr IV .BY DURATION [facility] Last Admin: 08/20/20 16:49 Dose: 60 mls/hr Documented by: Amino Ac/Electrol/Dextrose/Calcium (Clinimix E 5%-D15% Solution) 1,000 mls @ 60 mls/hr IV .BY DURATION [facility] Ferric Sodium Gluconate 125 mg (/ Sodium Chloride) 110 mls @ 100 mls/hr IVPB DAILY [facility] Stop: 08/23/20 10:05 Nicotine (Nicotine 14mg/24hr Patch) 1 patch TRANSDERM DAILY [facility] Last Admin: 08/20/20 08:47 Dose: 1 patch Documented by: Nitroglycerin (Nitroglycerin Oint 1 Inch/Gm Packet) 0.5 inch TOPICAL Q8HR [facility] Last Admin: 08/20/20 16:49 Dose: 0.5 inch Documented by: Pantoprazole Sodium (Pantoprazole 40 Mg/10 Ml Vial) 40 mg IVP BID [facility] Last Admin: 08/20/20 21:08 Dose: 40 mg Documented by: Physical examination: VITAL SIGNS: 98.1, 74, 18, 126/71, 98% room air GENERAL: Sitting upon a chair, not in distress EYES: Pupils equal. Conjunctiva normal. NECK: JVD not raised; masses not palpable. HEART: First and second heart sounds are normal; no edema. LUNGS: Respiratory rate increased; decreased breath sounds. ABDOMEN: Soft, decreased epigastric tenderness, no guarding rigidity, liver spleen not palpable, no masses palpable. PSYCH: Alert and oriented x3; mood and affect normal INVESTIGATIONS, reviewed in the clinical context: White count 9.2 hemoglobin 10.5 potassium 3.7 creatinine 0.47 Admission testing White count 15.7 hemoglobin 13.2 platelets 516 increased neutrophils potassium 4.0 creatinine 0.56 EKG tracing personally reviewed by me-nonspecific T-wave changes in the anterior leads Chest x-ray film personally reviewed by me-free air below both the diaphragms. Lung may clear Computed tomography scan of the abdomen-moderate to severe gastric wall thickening with poorly distended stomach. Sigmoid colonic diverticula. Pneumoperitoneum Assessment: -Suspected perforated gastric ulcer in patient's risk factors include , smoker. Recent steroids, , naproxen.,aspirin.-free air.. Currently being managed conservatively. -Essential hypertension. Patient's blood pressure currently running on the lower side. We'll hold off verapamil and -depression and anxiety not otherwise specified -Chronic stable angina for which patient appears to be on Ranexa -Hyperlipidemia -Osteoarthritis -COPD in a current smoker -Chronic nicotine dependence patient cigarette smoker Plan: Patient on IV Flagyl, IV Zosyn. Started on TPN. Nonoperative management per surgery. Remains nothing by mouth. Encouraged to ambulate. Thank you Dr. Garcia
[2020-08-21 00:01] LABS: Glucose,Whole Blood 141 mg/dL (75-99)
[2020-08-21] MEDS: NITROGLYCERIN OINT 1 INCH/GM PACKET TOPICAL SCH ×3 (02:01→16:16)
[2020-08-21] MEDS: 1: MVI, ADULT NO.4 WITH VIT K 10 ML, TRACE (CONC-1ML/DOSE) 1 ML in AMINO ACID 5%-D15W+LY IV SCH ×6 (03:22→22:23)
[2020-08-21] MEDS: PIPERACILLIN-TAZOBACTAM 3.375 GM in SODIUM CHLORIDE 0.9% 100 ML IVPB SCH ×3 (04:29→22:22)
[2020-08-21] MEDS: metroNIDAZOLE-NS PMX 500 MG in SALINE 1 100ML.BAG IVPB SCH ×3 (04:35→19:56)
[2020-08-21 06:04] LABS: Glucose,Whole Blood 135 mg/dL (75-99)
[2020-08-21] MEDS: IPRATROPIUM-ALBUTEROL 3 ML NEB INHALATION SCH ×4 (07:52→20:00)
[2020-08-21 07:59] LABS: African American GFR (CKD) >90 (>60 ml/min/1.73 sqM); Anion Gap 4 mmol/L; Blood Urea Nitrogen 8 mg/dL (7-17); Calcium 9.4 mg/dL (8.4-10.2); Carbon Dioxide 25 mmol/L (22-30); Chloride 112 mmol/L (98-107); Glucose 129 mg/dL (74-99); Magnesium 2.1 mg/dL (1.6-2.3); Non-African American GFR(CKD) >90 (>60 ml/min/1.73 sqM); Phosphorus 3.6 mg/dL (2.5-4.5); Sodium 141 mmol/L (137-145)
[2020-08-21] MEDS: FLUCONAZOLE IN NACL,ISO-OSM 100 MG in SALINE 1 50ML.BAG IVPB SCH (08:28)
[2020-08-21] MEDS: LACTATED RINGERS 1,000 ML IV SCH ×3 (08:33→17:33)
[2020-08-21] MEDS: ENOXAPARIN 40 MG/0.4 ML SYRINGE SQ SCH (10:05)
[2020-08-21] MEDS: NICOTINE 14MG/24HR PATCH TRANSDERM SCH (10:05)
[2020-08-21] MEDS: SODIUM FERRIC GLUCONAT-SUCROSE 125 MG in SODIUM CHLORIDE 0.9% 100 ML IVPB SCH (10:05)
[2020-08-21] MEDS: PANTOPRAZOLE 40 MG/10 ML VIAL IVP SCH ×2 (10:05→19:55)
--- NOTE | 2020-08-21 11:01 | P.PN ---
Subjective Progress Note Date: 08/21/20 CHIEF COMPLAINT: Pneumoperitoneum HISTORY OF PRESENT ILLNESS: The patient is a 65 year old female admitted for pneumoperitoneum. She is on TPN including antibiotics for perforated viscus. "I have no belly pain." She reports all of her back pain and chest pain is almost gone. Just mild left upper qaudrant pain. REVIEW OF ORGAN SYSTEMS: No fevers or chills. She is having bowel movements. No nausea or vomiting. PHYSICAL EXAM: VITALS: Reviewed CONSTITUTIONAL: Well developed and in no acute distress. EYES: Conjuctivae without sclera icterus. Pupils are equally round and reactive to light. Extraocular movements grossly intact. HEAD, EARS, NOSE, THROAT: Moist buccal mucosa. Head is atraumatic, normocephalic. Hears conversational speech. No nasal drainage. She is edentulous. RESPIRATORY: Non-labored respirations and equal bilateral excursions. CARDIOVASCULAR: Regular rate and rhythm. ABDOMEN: Soft. No peritonitis. Minimal left upper quadrant pain, very mild. MUSCULOSKELETAL: No clubbing, cyanosis, or edema. SKIN: Warm and well perfused with good skin turgor. NEUROLOGIC: Cranial nerves II through XII grossly intact. Sensation upper and extremities intact. No focal or lateralizing signs. PSYCH: Appropriate affect. Alert and oriented to person, place and time. Displays appropriate insight. CLINCAL LABS: Reviewed. Sodium normal 141. Potassium normal 4.0. CBC pending. REPORTS: Echo report reviewed demonstrating ejection fraction over 55%. No myocardial wall abnormality. ASSESSMENT: 1. Pneumoperitoneum 2. History of chronic NSAID use 3. Chronic back pain 4. Abnormal EKG for anterior ischemia PLAN: 1. Continue antibiotics including antifungal 2. May have mouth swabs 3. CBC and BMP daily Objective - Vital Signs Vital signs: Vital Signs Temp 98.2 F 08/20/20 20:00 Pulse 70 08/21/20 03:55 Resp 18 08/21/20 03:55 BP 123/77 08/21/20 03:55 Pulse Ox 99 08/21/20 03:55 Intake & Output 08/20/20 08/21/20 08/21/20 18:59 06:59 18:59 Intake Total 633 0 Output Total 1300 Balance -667 0 Weight 46.2 kg 45.5 kg Intake: Intake, IV Titration 633 Amount Mvi, Adult No.4 with Vit 633 K 10 ml Trace (Conc-1Ml/ Dose) 1 ml In Amino Acid 5%-D15w+Lytes*E* 1,000 ml @ 60 mls/hr IV .BY DURATION [facility] Rx#: [id number] Oral 0 Output: Urine 1300 Other: Voiding Method Toilet # Voids 3 1 - Labs CBC & Chem 7: 08/20/20 10:03 08/21/20 07:00 Labs: Abnormal Lab Results - Last 24 Hours (Table) 08/20/20 08/20/20 08/20/20 Range/Units 10:02 10:03 23:59 RBC 3.73 L (3.80-5.40) m/uL Hgb 10.5 L (11.4-16.0) gm/dL Hct 33.2 L (34.0-46.0) % Lymphocytes # 0.7 L (1.0-4.8) k/uL Sodium 135 L (137-145) mmol/L Chloride (98-107) mmol/L Creatinine 0.47 L (0.52-1.04) mg/dL Glucose 136 H (74-99) mg/dL POC Glucose (mg/dL) 141 H (75-99) mg/dL Iron 37 L (50-170) ug/dL 08/21/20 08/21/20 Range/Units 06:03 07:00 RBC (3.80-5.40) m/uL Hgb (11.4-16.0) gm/dL Hct (34.0-46.0) % Lymphocytes # (1.0-4.8) k/uL Sodium (137-145) mmol/L Chloride 112 H (98-107) mmol/L Creatinine 0.48 L (0.52-1.04) mg/dL Glucose 129 H (74-99) mg/dL POC Glucose (mg/dL) 135 H (75-99) mg/dL Iron (50-170) ug/dL Microbiology - Last 24 Hours (Table) 08/18/20 11:50 Blood Culture - Preliminary Blood No Growth after 48 hours Assessment and Plan (1) Elevated d-dimer Current Visit: Yes Status: Acute Code(s): R79.89 - OTHER SPECIFIED ABNORMAL FINDINGS OF BLOOD CHEMISTRY SNOMED Code(s): 638966005 (2) Gastric ulcer Current Visit: Yes Status: Acute Code(s): K25.9 - GASTRIC ULCER, UNSP ACUTE OR CHRONIC, W/O HEMOR OR PERF SNOMED Code(s): 624742120 (3) Pneumoperitoneum Current Visit: Yes Status: Acute Code(s): K66.8 - OTHER SPECIFIED DISORDERS OF PERITONEUM SNOMED Code(s): 00763679 (4) Chronic stomach ulcer due to nonsteroidal anti-inflammatory drug (NSAID) Current Visit: Yes Status: Acute Code(s): K25.7 - CHRONIC GASTRIC ULCER WITHOUT HEMORRHAGE OR PERFORATION; T39.395A - ADVERSE EFFECT OF NONSTEROIDAL ANTI-INFLAMMATORY DRUGS, INIT SNOMED Code(s): 55262014
[2020-08-21 11:51] LABS: Glucose,Whole Blood 121 mg/dL (75-99)
[2020-08-21 18:25] LABS: Glucose,Whole Blood 124 mg/dL (75-99)
[2020-08-22] MEDS: NITROGLYCERIN OINT 1 INCH/GM PACKET TOPICAL SCH ×3 (01:06→13:18)
[2020-08-22] MEDS: LACTATED RINGERS 1,000 ML IV SCH ×4 (01:06→22:03)
[2020-08-22] MEDS: metroNIDAZOLE-NS PMX 500 MG in SALINE 1 100ML.BAG IVPB SCH ×3 (04:00→20:00)
[2020-08-22] MEDS: 1: MVI, ADULT NO.4 WITH VIT K 10 ML, TRACE (CONC-1ML/DOSE) 1 ML in AMINO ACID 5%-D15W+LY IV SCH ×6 (04:22→19:58)
[2020-08-22] MEDS: PIPERACILLIN-TAZOBACTAM 3.375 GM in SODIUM CHLORIDE 0.9% 100 ML IVPB SCH ×3 (05:15→22:11)
[2020-08-22 06:24] LABS: Glucose,Whole Blood 106 mg/dL (75-99)
[2020-08-22 06:41] LABS: Basophils # (A) 0.1 k/uL (0-0.2); Basophils % (A) 1 %; Eosinophils # (A) 0.5 k/uL (0-0.7); Eosinophils % (A) 8 %; HCT 35.4 % (34.0-46.0); HGB 10.9 gm/dL (11.4-16.0); Hypochromasia Moderate; Lymphocytes # (A) 1.4 k/uL (1.0-4.8); Lymphocytes % (A) 20 %; MCH 27.4 pg (25.0-35.0); MCHC 30.8 g/dL (31.0-37.0); MCV 89.2 fL (80.0-100.0); Mean Platelet Volume 6.8; Monocytes # (A) 0.4 k/uL (0-1.0); Monocytes % (A) 6 %; Neutrophils # (A) 4.6 k/uL (1.3-7.7); Neutrophils % (A) 65 %; Platelet Count 401 k/uL (150-450); RBC 3.96 m/uL (3.80-5.40); RDW 14.3 % (11.5-15.5); WBC 7.1 k/uL (3.8-10.6)
[2020-08-22 06:49] LABS: African American GFR (CKD) >90 (>60 ml/min/1.73 sqM); Anion Gap 5 mmol/L; Blood Urea Nitrogen 13 mg/dL (7-17); Calcium 9.8 mg/dL (8.4-10.2); Carbon Dioxide 26 mmol/L (22-30); Chloride 109 mmol/L (98-107); Glucose 103 mg/dL (74-99); Non-African American GFR(CKD) >90 (>60 ml/min/1.73 sqM); Phosphorus 3.8 mg/dL (2.5-4.5); Sodium 140 mmol/L (137-145)
[2020-08-22] MEDS: IPRATROPIUM-ALBUTEROL 3 ML NEB INHALATION SCH ×4 (07:26→19:22)
[2020-08-22] MEDS: ENOXAPARIN 40 MG/0.4 ML SYRINGE SQ SCH (08:26)
[2020-08-22] MEDS: NICOTINE 14MG/24HR PATCH TRANSDERM SCH (08:26)
[2020-08-22] MEDS: PANTOPRAZOLE 40 MG/10 ML VIAL IVP SCH ×2 (08:26→19:55)
[2020-08-22] MEDS: FLUCONAZOLE IN NACL,ISO-OSM 100 MG in SALINE 1 50ML.BAG IVPB SCH (08:27)
[2020-08-22] MEDS: SODIUM FERRIC GLUCONAT-SUCROSE 125 MG in SODIUM CHLORIDE 0.9% 100 ML IVPB SCH (09:53)
[2020-08-22 11:50] LABS: Glucose,Whole Blood 276 mg/dL (75-99)
[2020-08-22 14:58] LABS: Glucose,Whole Blood 142 mg/dL (75-99)
--- NOTE | 2020-08-22 15:33 | P.PN ---
Subjective Progress Note Date: 08/22/20 CHIEF COMPLAINT: Pneumoperitoneum HISTORY OF PRESENT ILLNESS: The patient is a 65 year old female admitted for pneumoperitoneum. She is on TPN including antibiotics for perforated viscus. "I have no chest pain, belly pain and back pain." She reports that she has been feeling well for 6 months including with chest and back pain that is now completely resolved. She reports she is feeling stronger as she now has an appetite. She is having bowel movements without blood. REVIEW OF ORGAN SYSTEMS: No fevers or chills. She is having bowel movements. No nausea or vomiting. PHYSICAL EXAM: VITALS: Reviewed CONSTITUTIONAL: Well developed and in no acute distress. EYES: Conjuctivae without sclera icterus. Pupils are equally round and reactive to light. Extraocular movements grossly intact. HEAD, EARS, NOSE, THROAT: Moist buccal mucosa. Head is atraumatic, normocephalic. Hears conversational speech. No nasal drainage. She is edentulous. RESPIRATORY: Non-labored respirations and equal bilateral excursions. CARDIOVASCULAR: Regular rate and rhythm. ABDOMEN: Soft. No peritonitis. Chest is non-tender. Abdomen is non-tender. MUSCULOSKELETAL: No clubbing, cyanosis, or edema. SKIN: Warm and well perfused with good skin turgor. NEUROLOGIC: Cranial nerves II through XII grossly intact. Sensation upper and extremities intact. No focal or lateralizing signs. PSYCH: Appropriate affect. Alert and oriented to person, place and time. Displays appropriate insight. CLINCAL LABS: Reviewed. CBC with WBC normal at 7.1. Hgb 10.9 ASSESSMENT: 1. Pneumoperitoneum 2. History of chronic NSAID use 3. Chronic back pain 4. Abnormal EKG for anterior ischemia PLAN: 1. She reports complete resolution of her symptoms 2. Will do combination of radiological follow-up with UGI in 24 to 48 hrs 3. Will need upper endoscopy as well for biopsy of site in 2 to 3 days. 4. Will need monitoring at least 24hrs following initiation of diet which should start once all studies above confirms complete seal of perforation. Objective - Vital Signs Vital signs: Vital Signs Temp 97.8 F 08/22/20 11:41 Pulse 80 08/22/20 11:41 Resp 17 08/22/20 11:41 BP 130/80 08/22/20 11:41 Pulse Ox 98 08/22/20 11:41 Intake & Output 08/21/20 08/22/20 08/22/20 18:59 06:59 18:59 Intake Total 200 359 0 Output Total 1300 1000 400 Balance -1100 -641 -400 Weight 45.3 kg Intake: Intake, IV Titration 200 359 Amount Amino Acid 5%-D15w+Lytes* 359 E* 1,000 ml @ 60 mls/hr IV .BY DURATION [facility] Rx#: [id number] Lactated Ringers 1,000 ml 100 @ 150 mls/hr IV .Q6H40M [facility] Rx#:[id number] Sodium Ferric Gluconat- 100 Sucrose 125 mg In Sodium Chloride 0.9% 100 ml @ 100 mls/hr IVPB DAILY [facility] Rx#:[id number] Oral 0 0 Output: Urine 1300 1000 400 Other: Voiding Method Toilet Toilet Toilet # Voids 3 1 2 - Labs CBC & Chem 7: 08/22/20 05:57 08/22/20 05:57 Labs: Abnormal Lab Results - Last 24 Hours (Table) 08/21/20 08/22/20 08/22/20 Range/Units 18:23 05:57 05:57 Hgb 10.9 L (11.4-16.0) gm/dL MCHC 30.8 L (31.0-37.0) g/dL Chloride 109 H (98-107) mmol/L Creatinine 0.51 L (0.52-1.04) mg/dL Glucose 103 H (74-99) mg/dL POC Glucose (mg/dL) 124 H (75-99) mg/dL 08/22/20 08/22/20 08/22/20 Range/Units 05:59 11:37 14:55 Hgb (11.4-16.0) gm/dL MCHC (31.0-37.0) g/dL Chloride (98-107) mmol/L Creatinine (0.52-1.04) mg/dL Glucose (74-99) mg/dL POC Glucose (mg/dL) 106 H 276 H 142 H (75-99) mg/dL Microbiology - Last 24 Hours (Table) 08/18/20 11:50 Blood Culture - Preliminary Blood No Growth after 96 hours Assessment and Plan (1) Elevated d-dimer Current Visit: Yes Status: Acute Code(s): R79.89 - OTHER SPECIFIED ABNORMAL FINDINGS OF BLOOD CHEMISTRY SNOMED Code(s): 238649413 (2) Gastric ulcer Current Visit: Yes Status: Acute Code(s): K25.9 - GASTRIC ULCER, UNSP ACUTE OR CHRONIC, W/O HEMOR OR PERF SNOMED Code(s): 383955908 (3) Pneumoperitoneum Current Visit: Yes Status: Acute Code(s): K66.8 - OTHER SPECIFIED DISORDERS OF PERITONEUM SNOMED Code(s): 82074865 (4) Chronic stomach ulcer due to nonsteroidal anti-inflammatory drug (NSAID) Current Visit: Yes Status: Acute Code(s): K25.7 - CHRONIC GASTRIC ULCER WITHOUT HEMORRHAGE OR PERFORATION; T39.395A - ADVERSE EFFECT OF NONSTEROIDAL ANTI-INFLAMMATORY DRUGS, INIT SNOMED Code(s): 61920674
[2020-08-22 17:54] LABS: Glucose,Whole Blood 112 mg/dL (75-99)
[2020-08-23 00:03] LABS: Glucose,Whole Blood 117 mg/dL (75-99)
[2020-08-23] MEDS: NITROGLYCERIN OINT 1 INCH/GM PACKET TOPICAL SCH ×3 (00:03→16:38)
[2020-08-23] MEDS: LACTATED RINGERS 1,000 ML IV SCH ×4 (02:41→22:23)
[2020-08-23] MEDS: metroNIDAZOLE-NS PMX 500 MG in SALINE 1 100ML.BAG IVPB SCH ×3 (03:59→22:22)
[2020-08-23] MEDS: PIPERACILLIN-TAZOBACTAM 3.375 GM in SODIUM CHLORIDE 0.9% 100 ML IVPB SCH ×3 (05:14→20:24)
[2020-08-23 06:22] LABS: Glucose,Whole Blood 127 mg/dL (75-99)
[2020-08-23] MEDS: IPRATROPIUM-ALBUTEROL 3 ML NEB INHALATION SCH ×4 (07:57→19:59)
[2020-08-23 08:29] LABS: Basophils % (A) 1 %; Eosinophils # (A) 0.3 k/uL (0-0.7); Eosinophils % (A) 5 %; HCT 38.4 % (34.0-46.0); HGB 11.7 gm/dL (11.4-16.0); Hypochromasia Moderate; Lymphocytes # (A) 1.2 k/uL (1.0-4.8); Lymphocytes % (A) 20 %; MCH 27.2 pg (25.0-35.0); MCHC 30.5 g/dL (31.0-37.0); Mean Platelet Volume 6.9; Monocytes # (A) 0.3 k/uL (0-1.0); Monocytes % (A) 5 %; Neutrophils # (A) 4.2 k/uL (1.3-7.7); Neutrophils % (A) 67 %; Platelet Count 403 k/uL (150-450); RBC 4.32 m/uL (3.80-5.40); RDW 14.5 % (11.5-15.5); WBC 6.2 k/uL (3.8-10.6)
[2020-08-23 08:55] LABS: African American GFR (CKD) >90 (>60 ml/min/1.73 sqM); Anion Gap 6 mmol/L; Blood Urea Nitrogen 18 mg/dL (7-17); Calcium 9.8 mg/dL (8.4-10.2); Carbon Dioxide 24 mmol/L (22-30); Chloride 109 mmol/L (98-107); Glucose 103 mg/dL (74-99); Magnesium 2.2 mg/dL (1.6-2.3); Non-African American GFR(CKD) >90 (>60 ml/min/1.73 sqM); Phosphorus 3.9 mg/dL (2.5-4.5); Potassium 4.8 mmol/L (3.5-5.1); Sodium 139 mmol/L (137-145)
[2020-08-23] MEDS: FAT EMULSION 20% 250 ML IV SCH (09:49)
[2020-08-23] MEDS: PANTOPRAZOLE 40 MG/10 ML VIAL IVP SCH ×2 (09:50→20:24)
[2020-08-23] MEDS: SODIUM FERRIC GLUCONAT-SUCROSE 125 MG in SODIUM CHLORIDE 0.9% 100 ML IVPB SCH (09:50)
[2020-08-23] MEDS: NICOTINE 14MG/24HR PATCH TRANSDERM SCH (09:50)
[2020-08-23] MEDS ORDERED: PROPOFOL 10 MG/ML 20 ML VIAL IV ONE (10:16)
[2020-08-23] MEDS ORDERED: LIDOCAINE 1% INJ 10MG/ML (20 ML MDV) ONE (10:16)
[2020-08-23] MEDS ORDERED: IV FLUID CONTINUATION 1,000 ML IV ONE ×2 (10:17)
--- NOTE | 2020-08-23 10:46 | P.PCN ---
Date of Procedure: 08/23/20 Description of Procedure: PREOPERATIVE DIAGNOSIS: History of pneumoperitoneum Suspect gastric ulcer perforation Chronic NSAID use POSTOPERATIVE DIAGNOSIS: Chronic NSAID use Gastric ulcer perforation Gastritis Diaphragmatic hiatal hernia OPERATION: Esophagogastroduodenoscopy with biopsies along antrum and gastric ulcer SURGEON: Kacie Garcia MD ANESTHESIA: MAC. INDICATIONS: The patient is a 65-year-old female who presented with acute abdominal pain for 2 days with pre-existing chronic chest, upper back and neck pain for over 6 months. She has history of chronic NSAID use as a result. She presented to emergency room with pneumoperitoneum of unclear etiology. Clinical history was consistent with perforated gastric ulcer. Patient reports complete resolution of her abdominal pain and chest pain since hospitalization. Upper endoscopy was offerred for confirmatory diagnosis of perforated ulcer including biopsies. Benefits and risks were reviewed. Informed consent was obtained. DESCRIPTION: The patient was brought into the endoscopy suite and laid in the left lateral decubitus position. An Olympus gastroscope was passed along the posterior oropharynx down to the distal esophagus where the squamocolumnar junction was encountered at 37 cm from the incisors. The stomach was entered and no bile reflux was found. Additional findings are listed below. Biopsies with cold forceps were obtained of the antrum. The first through third portion of the duodenum was examined and unremarkable. Retroflexion of the scope confirmed Hill grade 3 lower esophageal valve. The squamocolumnar junction demonstrated LA grade B erosive esophagitis. The stomach was desufflated. The patient tolerated the procedure well. FINDINGS: Squamocolumnar junction 37 cm from the incisors. Diaphragmatic hiatus at 40 cm. Hiatal hernia, 3 cm, sliding type Hill grade 3 lower esophageal valve. LA grade B erosive esophagitis. No active duodenitis. Chronic gastritis with biopsies obtained along antrum A 1 cm deep gastric ulceration with fibrinous coating proximal to angularis incisura at lesser curvature of the stomach without bleeding Biopsies obtained with cold forceps of border gastric ulcer RECOMMENDATIONS: 1. Continue nothing by mouth status 2. Await biopsies of gastric ulcer to guide treatment 3. Continue TPN and IV antibiotics including antifungal 4. Will need upper GI prior to start of diet
[2020-08-23] MEDS: ENOXAPARIN 40 MG/0.4 ML SYRINGE SQ SCH (11:36)
[2020-08-23] MEDS: FLUCONAZOLE IN NACL,ISO-OSM 100 MG in SALINE 1 50ML.BAG IVPB SCH (11:37)
[2020-08-23] MEDS: 1: MVI, ADULT NO.4 WITH VIT K 10 ML, TRACE (CONC-1ML/DOSE) 1 ML in AMINO ACID 5%-D15W+LY IV SCH ×3 (14:24)
[2020-08-23 17:15] LABS: Glucose,Whole Blood 109 mg/dL (75-99)
[2020-08-24] MEDS: NITROGLYCERIN OINT 1 INCH/GM PACKET TOPICAL SCH ×3 (00:49→16:56)
[2020-08-24 01:04] LABS: Glucose,Whole Blood 88 mg/dL (75-99)
[2020-08-24] MEDS: PIPERACILLIN-TAZOBACTAM 3.375 GM in SODIUM CHLORIDE 0.9% 100 ML IVPB SCH ×3 (04:05→20:09)
[2020-08-24] MEDS: metroNIDAZOLE-NS PMX 500 MG in SALINE 1 100ML.BAG IVPB SCH ×3 (05:54→21:45)
[2020-08-24] MEDS: LACTATED RINGERS 1,000 ML IV SCH ×3 (05:54→18:33)
[2020-08-24 06:04] LABS: Glucose,Whole Blood 139 mg/dL (75-99)
[2020-08-24] MEDS: IPRATROPIUM-ALBUTEROL 3 ML NEB INHALATION SCH ×4 (07:22→19:29)
[2020-08-24 08:03] LABS: Basophils % (A) 1 %; Eosinophils # (A) 0.3 k/uL (0-0.7); Eosinophils % (A) 4 %; HCT 33.9 % (34.0-46.0); HGB 10.6 gm/dL (11.4-16.0); Hypochromasia Slight; Lymphocytes # (A) 1.4 k/uL (1.0-4.8); Lymphocytes % (A) 19 %; MCH 27.6 pg (25.0-35.0); MCHC 31.4 g/dL (31.0-37.0); Mean Platelet Volume 6.9; Monocytes # (A) 0.4 k/uL (0-1.0); Monocytes % (A) 5 %; Neutrophils # (A) 5.1 k/uL (1.3-7.7); Neutrophils % (A) 69 %; Platelet Count 366 k/uL (150-450); RBC 3.85 m/uL (3.80-5.40); RDW 14.6 % (11.5-15.5); WBC 7.3 k/uL (3.8-10.6)
[2020-08-24 08:20] LABS: African American GFR (CKD) >90 (>60 ml/min/1.73 sqM); Anion Gap 5 mmol/L; Blood Urea Nitrogen 14 mg/dL (7-17); Calcium 9.3 mg/dL (8.4-10.2); Carbon Dioxide 24 mmol/L (22-30); Chloride 109 mmol/L (98-107); Glucose 122 mg/dL (74-99); Non-African American GFR(CKD) >90 (>60 ml/min/1.73 sqM); Phosphorus 3.4 mg/dL (2.5-4.5); Potassium 4.2 mmol/L (3.5-5.1); Sodium 138 mmol/L (137-145)
[2020-08-24] MEDS: PANTOPRAZOLE 40 MG/10 ML VIAL IVP SCH ×2 (09:23→20:09)
[2020-08-24] MEDS: ENOXAPARIN 40 MG/0.4 ML SYRINGE SQ SCH (09:23)
[2020-08-24] MEDS: NICOTINE 14MG/24HR PATCH TRANSDERM SCH (09:23)
[2020-08-24] MEDS: FLUCONAZOLE IN NACL,ISO-OSM 100 MG in SALINE 1 50ML.BAG IVPB SCH (09:23)
[2020-08-24] MEDS: 1: MVI, ADULT NO.4 WITH VIT K 10 ML, TRACE (CONC-1ML/DOSE) 1 ML in AMINO ACID 5%-D15W+LY IV SCH ×6 (09:24→14:55)
--- NOTE | 2020-08-24 09:43 | P.PN ---
Subjective Progress Note Date: 08/24/20 CHIEF COMPLAINT: Pneumoperitoneum HISTORY OF PRESENT ILLNESS: The patient is a 65 year old female admitted for pneumoperitoneum. He completed an upper endoscopy yesterday. She denies any nausea and vomiting. In fact " I feel great.". No reports of abdominal pain. She is eager to eat. Findings of upper endoscopy reviewed. She is on TPN with PICC line and antibiotics REVIEW OF ORGAN SYSTEMS: No fevers or chills. She is having bowel movements. No nausea or vomiting. PHYSICAL EXAM: VITALS: Reviewed CONSTITUTIONAL: Well developed and in no acute distress. EYES: Conjuctivae without sclera icterus. Pupils are equally round and reactive to light. Extraocular movements grossly intact. HEAD, EARS, NOSE, THROAT: Moist buccal mucosa. Head is atraumatic, normocephalic. Hears conversational speech. No nasal drainage. She is edentulous. RESPIRATORY: Non-labored respirations and equal bilateral excursions. CARDIOVASCULAR: Regular rate and rhythm. ABDOMEN: Soft. No peritonitis. Nontender. MUSCULOSKELETAL: No clubbing, cyanosis, or edema. SKIN: Warm and well perfused with good skin turgor. NEUROLOGIC: Cranial nerves II through XII grossly intact. Sensation upper and extremities intact. No focal or lateralizing signs. PSYCH: Appropriate affect. Alert and oriented to person, place and time. Displays appropriate insight. CLINCAL LABS: Reviewed. WBC normal. REPORT: Endoscopy confirms 1 cm ulceration proximal to angularis incisura with biopsies obtained. ASSESSMENT: 1. Pneumoperitoneum 2. History of chronic NSAID use 3. Chronic back pain 4. Confirm gastric ulcer perforation. PLAN: 1. She reports no abdominal pain following upper endoscopy. We'll proceed with limited upper GI water soluble. I personally discussed with the radiologist findings of upper endoscopy including procedures to date. 2. Continue TPN and PICC line with antibiotics. Objective - Vital Signs Vital signs: Vital Signs Temp 97.6 F 08/24/20 04:00 Pulse 88 08/24/20 07:37 Resp 18 08/24/20 04:00 BP 106/71 08/24/20 04:00 Pulse Ox 98 08/24/20 04:00 Intake & Output 08/23/20 08/24/20 08/24/20 18:59 06:59 18:59 Intake Total 100 Output Total 600 Balance -500 Weight 44 kg 44.7 kg Intake: IV 100 Intake, IV Titration 0 Amount Amino Acid 5%-D15w+Lytes* 0 E* 1,000 ml @ 60 mls/hr IV .BY DURATION [facility] Rx#: [id number] Oral 0 Output: Urine 600 Other: Voiding Method Toilet Toilet # Voids 1 # Bowel Movements 1 - Labs CBC & Chem 7: 08/24/20 06:58 08/24/20 06:58 Labs: Abnormal Lab Results - Last 24 Hours (Table) 08/23/20 08/24/20 08/24/20 Range/Units 17:13 06:02 06:58 Hgb 10.6 L (11.4-16.0) gm/dL Hct 33.9 L (34.0-46.0) % Chloride (98-107) mmol/L Glucose (74-99) mg/dL POC Glucose (mg/dL) 109 H 139 H (75-99) mg/dL 08/24/20 Range/Units 06:58 Hgb (11.4-16.0) gm/dL Hct (34.0-46.0) % Chloride 109 H (98-107) mmol/L Glucose 122 H (74-99) mg/dL POC Glucose (mg/dL) (75-99) mg/dL Microbiology - Last 24 Hours (Table) 08/18/20 11:50 Blood Culture - Preliminary Blood No Growth after 120 hours Assessment and Plan (1) Elevated d-dimer Current Visit: Yes Status: Acute Code(s): R79.89 - OTHER SPECIFIED ABNORMAL FINDINGS OF BLOOD CHEMISTRY SNOMED Code(s): 721408660 (2) Gastric ulcer Current Visit: Yes Status: Acute Code(s): K25.9 - GASTRIC ULCER, UNSP ACUTE OR CHRONIC, W/O HEMOR OR PERF SNOMED Code(s): 369097317 (3) Pneumoperitoneum Current Visit: Yes Status: Acute Code(s): K66.8 - OTHER SPECIFIED DISORDERS OF PERITONEUM SNOMED Code(s): 30742802 (4) Chronic stomach ulcer due to nonsteroidal anti-inflammatory drug (NSAID) Current Visit: Yes Status: Acute Code(s): K25.7 - CHRONIC GASTRIC ULCER WITHOUT HEMORRHAGE OR PERFORATION; T39.395A - ADVERSE EFFECT OF NONSTEROIDAL ANTI-INFLAMMATORY DRUGS, INIT SNOMED Code(s): 54703626 (5) Perforated gastric ulcer Current Visit: Yes Status: Acute Code(s): K25.5 - CHRONIC OR UNSPECIFIED GASTRIC ULCER WITH PERFORATION SNOMED Code(s): 7905862
--- NOTE | 2020-08-24 11:29 | FL ---
EXAMINATION TYPE: FL UGI limited DATE OF EXAM: 08/24/2020 COMPARISON: CT 08/18/2020 HISTORY: Perforated gastric ulcer TECHNIQUE: A single contrast limited UGI study is performed as discussed with referring clinician. FINDINGS: Trigonometry Teacher image of the abdomen shows no pneumoperitoneum. Gastroesophageal junction is normal. No evident leak within the stomach. Proximal small bowel fills w ith contrast and shows no filling defect. Patient's ulcer is not identified with certainty. Surgical clips noted incidentally in the right upper quadrant. 1 minute 36 seconds fluoroscopy time, 9 intraoperative images. IMPRESSION: No evident leak on this limited exam.
[2020-08-24 11:50] LABS: Glucose,Whole Blood 127 mg/dL (75-99)
[2020-08-24 18:08] LABS: Glucose,Whole Blood 132 mg/dL (75-99)
[2020-08-25 00:34] LABS: Glucose,Whole Blood 128 mg/dL (75-99)
[2020-08-25] MEDS: NITROGLYCERIN OINT 1 INCH/GM PACKET TOPICAL SCH ×3 (01:58→15:03)
[2020-08-25] MEDS: LACTATED RINGERS 1,000 ML IV SCH ×4 (02:45→20:25)
[2020-08-25] MEDS: 1: MVI, ADULT NO.4 WITH VIT K 10 ML, TRACE (CONC-1ML/DOSE) 1 ML in AMINO ACID 5%-D15W+LY IV SCH ×3 (02:45)
[2020-08-25] MEDS: PIPERACILLIN-TAZOBACTAM 3.375 GM in SODIUM CHLORIDE 0.9% 100 ML IVPB SCH ×3 (03:11→22:39)
[2020-08-25] MEDS: metroNIDAZOLE-NS PMX 500 MG in SALINE 1 100ML.BAG IVPB SCH ×3 (05:55→22:39)
[2020-08-25 06:08] LABS: Glucose,Whole Blood 125 mg/dL (75-99)
[2020-08-25 07:18] LABS: HCT 35.1 % (34.0-46.0); HGB 10.8 gm/dL (11.4-16.0); Hypochromasia Slight; MCH 27.4 pg (25.0-35.0); MCHC 30.9 g/dL (31.0-37.0); MCV 88.9 fL (80.0-100.0); Mean Platelet Volume 6.8; Platelet Count 366 k/uL (150-450); RBC 3.95 m/uL (3.80-5.40); RDW 14.9 % (11.5-15.5)
[2020-08-25] MEDS: IPRATROPIUM-ALBUTEROL 3 ML NEB INHALATION SCH ×4 (07:23→18:53)
[2020-08-25 07:34] LABS: African American GFR (CKD) >90 (>60 ml/min/1.73 sqM); Anion Gap 5 mmol/L; Blood Urea Nitrogen 13 mg/dL (7-17); Calcium 9.4 mg/dL (8.4-10.2); Carbon Dioxide 24 mmol/L (22-30); Chloride 111 mmol/L (98-107); Glucose 113 mg/dL (74-99); Magnesium 2.1 mg/dL (1.6-2.3); Non-African American GFR(CKD) >90 (>60 ml/min/1.73 sqM); Phosphorus 3.6 mg/dL (2.5-4.5); Potassium 4.4 mmol/L (3.5-5.1); Sodium 140 mmol/L (137-145)
[2020-08-25] MEDS: FAT EMULSION 20% 250 ML IV SCH (09:20)
[2020-08-25] MEDS: ENOXAPARIN 40 MG/0.4 ML SYRINGE SQ SCH (09:20)
[2020-08-25] MEDS: PANTOPRAZOLE 40 MG/10 ML VIAL IVP SCH ×2 (09:20→20:27)
[2020-08-25] MEDS: FLUCONAZOLE IN NACL,ISO-OSM 100 MG in SALINE 1 50ML.BAG IVPB SCH (09:20)
[2020-08-25] MEDS: NICOTINE 14MG/24HR PATCH TRANSDERM SCH (09:20)
[2020-08-25 12:11] LABS: Glucose,Whole Blood 130 mg/dL (75-99)
--- NOTE | 2020-08-25 12:57 | P.PN ---
<Kathy Tolbert - Last Filed: 08/25/20 12:53> Subjective Progress Note Date: 08/25/20 CHIEF COMPLAINT: Pneumoperitoneum HISTORY OF PRESENT ILLNESS: Patient is being followed for her pneumoperitoneum. She denies any abdominal pain. She reports that she is feeling great and is eager to eat. She denies any nausea or vomiting. Upper GI shows no evidence of leak. Patient will be started on a full liquid diet today. She's afebrile. WBC 6.0 Hgb 10.8 PHYSICAL EXAM: VITAL SIGNS: Reviewed GENERAL: Well-developed in no acute distress. HEENT: No sclera icterus. Extraocular movements grossly intact. Moist buccal mucosa. Head is atraumatic, normocephalic. Hears conversational speech. No nasal drainage. NECK: Supple without lymphadenopathy. CHEST: Non-labored respirations and equal bilateral excursions. CARDIOVASCULAR: Palpable 2+ radial pulses. ABDOMEN: Soft. Nondistended. Nontender. MUSCULOSKELETAL: No clubbing or cyanosis. NEUROLOGIC: No focal or lateralizing signs. Cranial nerves II through XII grossly intact. PSYCH: Appropriate affect. Alert and oriented to person, place and time. SKIN: Well perfused. Good skin turgor. ASSESSMENT: 1. Pneumoperitoneum. 2. History of chronic NSAID use 3. Chronic back pain 4. Abnormal EKG for anterior ischemia PLAN: -Start Full liquid diet -continue TPN for nutrition support -Continue antibiotics Physician Hook Up note has been reviewed by physician. Signing provider agrees with the documented findings, assessment, and plan of care. Objective - Vital Signs Vital signs: Vital Signs Temp 97.6 F 08/25/20 11:55 Pulse 95 08/25/20 11:55 Resp 18 08/25/20 11:55 BP 119/67 08/25/20 11:55 Pulse Ox 100 08/25/20 11:55 Intake & Output 08/24/20 08/25/20 08/25/20 18:59 06:59 18:59 Intake Total 2019 2089 Output Total 700 2425 Balance 1320 -335 Intake: Intake, IV Titration 2019 2089 Amount Amino Acid 5%-D15w+Lytes* 240 540 E* 1,000 ml @ 60 mls/hr IV .BY DURATION [facility] Rx#: [id number] Fluconazole in NaCl,Iso- 50 Osm 100 mg In Saline 1 50ml.bag @ 50 mls/hr IVPB DAILY [facility] Rx#:[id number] Lactated Ringers 1,000 ml 1050 1350 @ 150 mls/hr IV .Q6H40M [facility] Rx#:[id number] Mvi, Adult No.4 with Vit 480 K 10 ml Trace (Conc-1Ml/ Dose) 1 ml In Amino Acid 5%-D15w+Lytes*E* 1,000 ml @ 60 mls/hr IV .BY DURATION [facility] Rx#: [id number] Piperacillin-Tazobactam 3 100 100 .375 gm In Sodium Chloride 0.9% 100 ml @ 25 mls/hr IVPB Q8H [facility] Rx#: [id number] metroNIDAZOLE-NS PMX 500 100 100 mg In Saline 1 100ml.bag @ 100 mls/hr IVPB Q8H [facility] Rx#:[id number] Output: Urine 700 2425 Other: Voiding Method Toilet Toilet # Voids 0 1 1 # Bowel Movements 0 - Labs CBC & Chem 7: 08/25/20 06:25 08/25/20 06:25 Labs: Abnormal Lab Results - Last 24 Hours (Table) 08/24/20 08/25/20 08/25/20 Range/Units 18:07 00:32 06:06 Hgb (11.4-16.0) gm/dL MCHC (31.0-37.0) g/dL Chloride (98-107) mmol/L Creatinine (0.52-1.04) mg/dL Glucose (74-99) mg/dL POC Glucose (mg/dL) 132 H 128 H 125 H (75-99) mg/dL 08/25/20 08/25/20 08/25/20 Range/Units 06:25 06:25 12:09 Hgb 10.8 L (11.4-16.0) gm/dL MCHC 30.9 L (31.0-37.0) g/dL Chloride 111 H (98-107) mmol/L Creatinine 0.50 L (0.52-1.04) mg/dL Glucose 113 H (74-99) mg/dL POC Glucose (mg/dL) 130 H (75-99) mg/dL Microbiology - Last 24 Hours (Table) 08/18/20 11:50 Blood Culture - Final Blood No Growth after 144 hours <Radha,Karen N - Last Filed: 08/25/20 19:07> Subjective Patient seen and evaluated with above. Please see additional documentation below. HISTORY OF PRESENT ILLNESS: The patient is a 65 year old female admitted for pneumoperitoneum. No reports fo abdominal pain, nausea or vomiting. EGD includi ng UGI demonstrates seal of previous gastric perforation. Previous chest, neck, back pain completely resolved. She is on TPN and antibiotics. REVIEW OF ORGAN SYSTEMS: No fevers or chills. No short of breath. PHYSICAL EXAM: VITALS: Reviewed CONSTITUTIONAL: Well developed and in no acute distress. EYES: Conjuctivae without sclera icterus. Pupils are equally round and reactive to light. Extraocular movements grossly intact. HEAD, EARS, NOSE, THROAT: Moist buccal mucosa. Head is atraumatic, normocephalic. Hears conversational speech. No nasal drainage. She is edentulous. RESPIRATORY: Non-labored respirations and equal bilateral excursions. CARDIOVASCULAR: Regular rate and rhythm. ABDOMEN: Soft. No peritonitis. Nontender. MUSCULOSKELETAL: No clubbing, cyanosis, or edema. SKIN: Warm and well perfused with good skin turgor. NEUROLOGIC: Cranial nerves II through XII grossly intact. Sensation upper and extremities intact. No focal or lateralizing signs. PSYCH: Appropriate affect. Alert and oriented to person, place and time. Displays appropriate insight. CLINCAL LABS: Reviewed. WBC normal at 6.0. STUDIES: Upper GI shows resolved pneumoperitoneum. No active leak from previous perforation. ASSESSMENT: 1. Pneumoperitoneum 2. History of chronic NSAID use 3. Chronic back pain 4. Gastric ulcer perforation. PLAN: 1. Will start full liquid diet. 2. Once tolerating diet, will advance to regular diet 3. Plan for weaning TPN 4. Will need antacids including Carafate well as antibiotics for 2 weeks prior to discharge. Objective - Vital Signs Vital signs: Vital Signs Temp 97.9 F 08/25/20 15:23 Pulse 88 08/25/20 19:01 Resp 16 08/25/20 15:23 BP 97/57 08/25/20 15:23 Pulse Ox 99 08/25/20 15:23 Intake & Output 08/25/20 08/25/20 08/26/20 06:59 18:59 06:59 Intake Total 2089 1400 Output Total 2425 1600 Balance -335 -200 Weight 44.7 kg Intake: Intake, IV Titration 2089 790 Amount Amino Acid 5%-D15w+Lytes* 540 E* 1,000 ml @ 60 mls/hr IV .BY DURATION [facility] Rx#: [id number] Fat Emulsion 20% 250 ml @ 160 20.833 mls/hr IV MoWeFr [facility] Rx#:[id number] Fluconazole in NaCl,Iso- 50 Osm 100 mg In Saline 1 50ml.bag @ 50 mls/hr IVPB DAILY [facility] Rx#:[id number] Lactated Ringers 1,000 ml 1350 100 @ 150 mls/hr IV .Q6H40M [facility] Rx#:[id number] Mvi, Adult No.4 with Vit 480 K 10 ml Trace (Conc-1Ml/ Dose) 1 ml In Amino Acid 5%-D15w+Lytes*E* 1,000 ml @ 60 mls/hr IV .BY DURATION [facility] Rx#: [id number] Piperacillin-Tazobactam 3 100 .375 gm In Sodium Chloride 0.9% 100 ml @ 25 mls/hr IVPB Q8H [facility] Rx#: [id number] metroNIDAZOLE-NS PMX 500 100 mg In Saline 1 100ml.bag @ 100 mls/hr IVPB Q8H [facility] Rx#:[id number] Oral 610 Output: Urine 2425 1600 Other: Voiding Method Toilet Toilet # Voids 1 1 # Bowel Movements 0 - Labs CBC & Chem 7: 08/25/20 06:25 08/25/20 06:25 Labs: Abnormal Lab Results - Last 24 Hours (Table) 08/25/20 08/25/20 08/25/20 Range/Units 00:32 06:06 06:25 Hgb (11.4-16.0) gm/dL MCHC (31.0-37.0) g/dL Chloride 111 H (98-107) mmol/L Creatinine 0.50 L (0.52-1.04) mg/dL Glucose 113 H (74-99) mg/dL POC Glucose (mg/dL) 128 H 125 H (75-99) mg/dL 08/25/20 08/25/20 08/25/20 Range/Units 06:25 12:09 16:44 Hgb 10.8 L (11.4-16.0) gm/dL MCHC 30.9 L (31.0-37.0) g/dL Chloride (98-107) mmol/L Creatinine (0.52-1.04) mg/dL Glucose (74-99) mg/dL POC Glucose (mg/dL) 130 H 122 H (75-99) mg/dL Assessment and Plan (1) Elevated d-dimer Current Visit: Yes Status: Acute Code(s): R79.89 - OTHER SPECIFIED ABNORMAL FINDINGS OF BLOOD CHEMISTRY SNOMED Code(s): 704796487 (2) Gastric ulcer Current Visit: Yes Status: Acute Code(s): K25.9 - GASTRIC ULCER, UNSP ACUTE OR CHRONIC, W/O HEMOR OR PERF SNOMED Code(s): 424605090 (3) Pneumoperitoneum Current Visit: Yes Status: Acute Code(s): K66.8 - OTHER SPECIFIED DISORDERS OF PERITONEUM SNOMED Code(s): 89178957 (4) Chronic stomach ulcer due to nonsteroidal anti-inflammatory drug (NSAID) Current Visit: Yes Status: Acute Code(s): K25.7 - CHRONIC GASTRIC ULCER WITHOUT HEMORRHAGE OR PERFORATION; T39.395A - ADVERSE EFFECT OF NONSTEROIDAL ANTI-INFLAMMATORY DRUGS, INIT SNOMED Code(s): 25656238 (5) Perforated gastric ulcer Current Visit: Yes Status: Acute Code(s): K25.5 - CHRONIC OR UNSPECIFIED GASTRIC ULCER WITH PERFORATION SNOMED Code(s): 7249269
[2020-08-25 17:01] LABS: Glucose,Whole Blood 122 mg/dL (75-99)
[2020-08-26 00:06] LABS: Glucose,Whole Blood 110 mg/dL (75-99)
[2020-08-26] MEDS: metroNIDAZOLE-NS PMX 500 MG in SALINE 1 100ML.BAG IVPB SCH ×4 (01:00→23:06)
[2020-08-26] MEDS: NITROGLYCERIN OINT 1 INCH/GM PACKET TOPICAL SCH ×3 (01:00→17:14)
[2020-08-26] MEDS: PIPERACILLIN-TAZOBACTAM 3.375 GM in SODIUM CHLORIDE 0.9% 100 ML IVPB SCH ×4 (03:17→23:05)
[2020-08-26] MEDS: LACTATED RINGERS 1,000 ML IV SCH ×3 (03:21→17:31)
[2020-08-26 06:04] LABS: Glucose,Whole Blood 115 mg/dL (75-99)
[2020-08-26] MEDS: IPRATROPIUM-ALBUTEROL 3 ML NEB INHALATION SCH ×4 (08:13→19:05)
[2020-08-26 09:02] LABS: Ionized Calcium 5.6 mg/dL (4.5-5.3)
[2020-08-26 09:43] LABS: African American GFR (CKD) >90 (>60 ml/min/1.73 sqM); Albumin 3.3 g/dL (3.5-5.0); Anion Gap 8 mmol/L; Blood Urea Nitrogen 13 mg/dL (7-17); Calcium 9.6 mg/dL (8.4-10.2); Carbon Dioxide 24 mmol/L (22-30); Chloride 111 mmol/L (98-107); Glucose 79 mg/dL (74-99); Magnesium 2.3 mg/dL (1.6-2.3); Non-African American GFR(CKD) >90 (>60 ml/min/1.73 sqM); Phosphorus 3.7 mg/dL (2.5-4.5); Potassium 4.7 mmol/L (3.5-5.1); Sodium 143 mmol/L (137-145)
[2020-08-26] MEDS: NICOTINE 14MG/24HR PATCH TRANSDERM SCH (10:35)
[2020-08-26] MEDS: FLUCONAZOLE IN NACL,ISO-OSM 100 MG in SALINE 1 50ML.BAG IVPB SCH (10:35)
[2020-08-26] MEDS: ENOXAPARIN 40 MG/0.4 ML SYRINGE SQ SCH (10:35)
[2020-08-26] MEDS: PANTOPRAZOLE 40 MG/10 ML VIAL IVP SCH (10:36)
[2020-08-26 11:52] LABS: Triglycerides 86 mg/dL (<150)
[2020-08-26 11:59] LABS: Glucose,Whole Blood 118 mg/dL (75-99)
--- NOTE | 2020-08-26 12:24 | P.PN ---
<Kathy Tolbert - Last Filed: 08/26/20 12:21> Subjective Progress Note Date: 08/26/20 CHIEF COMPLAINT: Pneumoperitoneum HISTORY OF PRESENT ILLNESS: Patient is being followed for her pneumoperitoneum. She denies any abdominal pain. She is tolerating her full liquid diet. Denies any nausea or vomiting. He is having bowel movements. She has been up and ambulate in. She is hungry. Patient is afebrile PHYSICAL EXAM: VITAL SIGNS: Reviewed GENERAL: Well-developed in no acute distress. HEENT: No sclera icterus. Extraocular movements grossly intact. Moist buccal mucosa. Head is atraumatic, normocephalic. Hears conversational speech. No nasal drainage. NECK: Supple without lymphadenopathy. CHEST: Non-labored respirations and equal bilateral excursions. CARDIOVASCULAR: Palpable 2+ radial pulses. ABDOMEN: Soft. Nondistended. Nontender. MUSCULOSKELETAL: No clubbing or cyanosis. NEUROLOGIC: No focal or lateralizing signs. Cranial nerves II through XII grossly intact. PSYCH: Appropriate affect. Alert and oriented to person, place and time. SKIN: Well perfused. Good skin turgor. ASSESSMENT: 1. Pneumoperitoneum. 2. History of chronic NSAID use 3. Chronic back pain 4. Abnormal EKG for anterior ischemia PLAN: -Advance diet to dysphagia ground diet -Start patient on oral Protonix 40 mg twice a day and start Carafate 1 g 4 times a day -Start weaning patient off of TPN -Continue antibiotics -If patient tolerating diet anticipate possible discharge tomorrow Physician Fixed Income Analyst note has been reviewed by physician. Signing provider agrees with the documented findings, assessment, and plan of care. Objective - Vital Signs Vital signs: Vital Signs Temp 98.7 F 08/26/20 04:00 Pulse 92 08/26/20 11:35 Resp 19 08/26/20 04:00 BP 99/65 08/26/20 04:00 Pulse Ox 97 08/26/20 04:00 Intake & Output 08/25/20 08/26/20 08/26/20 18:59 06:59 18:59 Intake Total 1400 1155 222 Output Total 1600 2700 Balance -200 -1545 222 Weight 44.7 kg 45.7 kg Intake: Intake, IV Titration 790 1155 Amount Fat Emulsion 20% 250 ml @ 160 20.833 mls/hr IV MoWeFr [facility] Rx#:[id number] Fluconazole in NaCl,Iso- 50 Osm 100 mg In Saline 1 50ml.bag @ 50 mls/hr IVPB DAILY [facility] Rx#:[id number] Lactated Ringers 1,000 ml 100 825 @ 150 mls/hr IV .Q6H40M [facility] Rx#:[id number] Mvi, Adult No.4 with Vit 480 K 10 ml Trace (Conc-1Ml/ Dose) 1 ml In Amino Acid 5%-D15w+Lytes*E* 1,000 ml @ 60 mls/hr IV .BY DURATION [facility] Rx#: [id number] Potassium Phosphate 15 330 mmol Sodium Acetate 30 meq Magnesium Sulfate gm 1 gm Calcium Gluconate 1 gm In Amino Acid 5%-D15w 1,000 ml @ 60 mls/hr IV . BY DURATION [facility] Rx#: [id number] Oral 610 222 Output: Urine 1600 2700 Other: Voiding Method Toilet Toilet # Voids 1 # Bowel Movements 0 - Labs CBC & Chem 7: 08/25/20 06:25 08/26/20 07:31 Labs: Abnormal Lab Results - Last 24 Hours (Table) 08/25/20 08/26/20 08/26/20 Range/Units 16:44 00:04 06:02 Chloride (98-107) mmol/L POC Glucose (mg/dL) 122 H 110 H 115 H (75-99) mg/dL Ionized Calcium Linda (4.5-5.3) mg/dL Albumin (3.5-5.0) g/dL 08/26/20 08/26/20 Range/Units 07:31 11:58 Chloride 111 H (98-107) mmol/L POC Glucose (mg/dL) 118 H (75-99) mg/dL Ionized Calcium Linda 5.6 H (4.5-5.3) mg/dL Albumin 3.3 L (3.5-5.0) g/dL <Kacie Garcia - Last Filed: 08/26/20 15:52> Subjective Patient seen and evaluated with above. Please see additional documentation below. HISTORY OF PRESENT ILLNESS: The patient is a 65 year old female who was admitted for pneumoperitoneum perforated gastric ulcer. She had been nothing by mouth for 1 week with TPN including IV antibiotics. Studies are unremarkable for recurrent perforation. She tolerated full liquid diet. She is eager to tolerate more food. REVIEW OF ORGAN SYSTEMS: No nausea or vomiting. No fevers or chills. No chest pain. PHYSICAL EXAM: VITALS: Reviewed CONSTITUTIONAL: Well developed and in no acute distress. EYES: Conjuctivae without sclera icterus. Extraocular movements grossly intact. HEAD, EARS, NOSE, THROAT: Moist buccal mucosa. Head is atraumatic, normocephalic. Hears conversational speech. No nasal drainage. She is emily tulous. RESPIRATORY: Non-labored respirations and equal bilateral excursions. CARDIOVASCULAR: Regular rate and rhythm. ABDOMEN: Soft. No peritonitis. Nontender. MUSCULOSKELETAL: No clubbing, cyanosis, or edema. SKIN: Warm and well perfused with good skin turgor. NEUROLOGIC: Cranial nerves II through XII grossly intact. Sensation upper and extremities intact. No focal or lateralizing signs. PSYCH: Appropriate affect. Alert and oriented to person, place and time. Displays appropriate insight. CLINCAL LABS: Reviewed. Potassium less than 5.0. ASSESSMENT: 1. Pneumoperitoneum 2. History of chronic NSAID use 3. Chronic back pain 4. Gastric ulcer perforation. PLAN: 1. Clinic she is doing well and diet has been advanced to grounded as she is edentulous. 2. Weaning TPN 3. Anticipated disposition tomorrow pending tolerating diet 4. Will need prolonged treatment with Protonix twice daily 40 mg including Carafate 4 times daily for 4 weeks Objective - Vital Signs Vital signs: Vital Signs Temp 97.9 F 08/26/20 12:00 Pulse 98 08/26/20 12:00 Resp 16 08/26/20 12:00 BP 100/65 08/26/20 12:00 Pulse Ox 100 08/26/20 12:00 Intake & Output 08/25/20 08/26/20 08/26/20 18:59 06:59 18:59 Intake Total 1400 1155 444 Output Total 1600 2700 200 Balance -200 -1545 244 Weight 44.7 kg 45.7 kg 45.7 kg Intake: Intake, IV Titration 790 1155 Amount Fat Emulsion 20% 250 ml @ 160 20.833 mls/hr IV MoWeFr [facility] Rx#:[id number] Fluconazole in NaCl,Iso- 50 Osm 100 mg In Saline 1 50ml.bag @ 50 mls/hr IVPB DAILY [facility] Rx#:[id number] Lactated Ringers 1,000 ml 100 825 @ 150 mls/hr IV .Q6H40M [facility] Rx#:[id number] Mvi, Adult No.4 with Vit 480 K 10 ml Trace (Conc-1Ml/ Dose) 1 ml In Amino Acid 5%-D15w+Lytes*E* 1,000 ml @ 60 mls/hr IV .BY DURATION [facility] Rx#: [id number] Potassium Phosphate 15 330 mmol Sodium Acetate 30 meq Magnesium Sulfate gm 1 gm Calcium Gluconate 1 gm In Amino Acid 5%-D15w 1,000 ml @ 60 mls/hr IV . BY DURATION [facility] Rx#: [id number] Oral 610 444 Output: Urine 1600 2700 200 Other: Voiding Method Toilet Toilet Toilet # Voids 1 2 # Bowel Movements 0 1 - Labs CBC & Chem 7: 08/25/20 06:25 08/26/20 07:31 Labs: Abnormal Lab Results - Last 24 Hours (Table) 08/25/20 08/26/20 08/26/20 Range/Units 16:44 00:04 06:02 Chloride (98-107) mmol/L POC Glucose (mg/dL) 122 H 110 H 115 H (75-99) mg/dL Ionized Calcium Linda (4.5-5.3) mg/dL Albumin (3.5-5.0) g/dL 08/26/20 08/26/20 Range/Units 07:31 11:58 Chloride 111 H (98-107) mmol/L POC Glucose (mg/dL) 118 H (75-99) mg/dL Ionized Calcium Linda 5.6 H (4.5-5.3) mg/dL Albumin 3.3 L (3.5-5.0) g/dL Assessment and Plan (1) Elevated d-dimer Current Visit: Yes Status: Acute Code(s): R79.89 - OTHER SPECIFIED ABNORMAL FINDINGS OF BLOOD CHEMISTRY SNOMED Code(s): 453391293 (2) Gastric ulcer Current Visit: Yes Status: Acute Code(s): K25.9 - GASTRIC ULCER, UNSP ACUTE OR CHRONIC, W/O HEMOR OR PERF SNOMED Code(s): 764108955 (3) Pneumoperitoneum Current Visit: Yes Status: Acute Code(s): K66.8 - OTHER SPECIFIED DISORDERS OF PERITONEUM SNOMED Code(s): 51786475 (4) Chronic stomach ulcer due to nonsteroidal anti-inflammatory drug (NSAID) Current Visit: Yes Status: Acute Code(s): K25.7 - CHRONIC GASTRIC ULCER WITHOUT HEMORRHAGE OR PERFORATION; T39.395A - ADVERSE EFFECT OF NONSTEROIDAL ANTI-INFLAMMATORY DRUGS, INIT SNOMED Code(s): 41153549 (5) Perforated gastric ulcer Current Visit: Yes Status: Acute Code(s): K25.5 - CHRONIC OR UNSPECIFIED GASTRIC ULCER WITH PERFORATION SNOMED Code(s): 6169668
[2020-08-26 14:43] VITALS: BMI 19.6
[2020-08-26] MEDS: SUCRALFATE 1 GM TAB PO SCH ×3 (17:13→20:17)
[2020-08-26 17:17] LABS: Glucose,Whole Blood 104 mg/dL (75-99)
[2020-08-26] MEDS: PANTOPRAZOLE 40 MG TABLET PO SCH (17:30)
--- NOTE | 2020-08-26 18:24 | P.PN ---
Progress Note - Text Progress Note Date: 08/26/20 - Chief Complaint Abdominal pain Consultation: This is a pleasant 65-year-old patient of Dr. Stewart. Chronic stable medical conditions include fibromyalgia, hypertension, hyperlipidemia, osteoarthritis, kidney cancer that was removed, osteoarthritis chronic low back pain. Long- standing smoker. Patient started on yesterday with increasing epigastric pain down to below the rib cage also refer to the shoulder. A lot of nausea. This presented to ER earlier today. X-ray and computed tomography scan of the abdomen showed free air and present of thickened gastric wall. Continues to have epigastric pain. No obvious fever and chills. Patient recently has been o n steroids for her back pain exacerbation. Admitted with what is now felt to be perforated gastric ulcer. 3.. She was started on IV Zosyn and Flagyl. Seen by Dr. Garcia general surgery. To be m anaged conservatively She made nothing by mouth. Patient is started on TPN and lipids. Diet was greatly advanced. Had upper GI series. No evidence of gastric leak. Today-no abdominal pain. Ambulating. Had a bowel movement. Advance to soft diet. No nausea vomiting. Review of systems: Was done for constitutional, cardiovascular, GI, pulmonary. relevant finding as above Active Medications Albuterol/Ipratropium (Ipratropium-Albuterol 3 Ml Neb) 3 ml INHALATION RT-QID LYNETTE Last Admin: 08/26/20 15:19 Dose: Not Given Documented by: Diphenhydramine HCl (Diphenhydramine 50 Mg/Ml 1 Ml Vial) 25 mg IVP Q6HR PRN PRN Reason: Allergy Symptoms Enoxaparin Sodium (Enoxaparin 40 Mg/0.4 Ml Syringe) 40 mg SQ DAILY [facility] Last Admin: 08/26/20 10:35 Dose: 40 mg Documented by: Hydromorphone HCl (Hydromorphone 0.5 Mg/0.5 Ml Syringe) 0.5 mg IVP Q4HR PRN PRN Reason: Pain Last Admin: 08/19/20 04:55 Dose: 0.5 mg Documented by: Hydromorphone HCl (Hydromorphone 1 Mg/Ml 1 Ml Syringe) 1 mg IVP Q3HR PRN PRN Reason: Moderate to Severe Pain Fluconazole/Sodium Chloride (100 mg/ IV Solution) 50 mls @ 50 mls/hr IVPB DAILY [facility] Last Admin: 08/26/20 10:35 Dose: 50 mls/hr Documented by: Lactated Ringer's (Lactated Ringers) 1,000 mls @ 150 mls/hr IV .Q6H40M [facility] Last Admin: 08/26/20 17:31 Dose: 150 mls/hr Documented by: Fat Emulsion Intravenous (Lipids 20%) 250 mls @ 20.833 mls/hr IV MoWeFr [facility] Last Admin: 08/25/20 09:20 Dose: 20.833 mls/hr Documented by: Piperacillin Sod/Tazobactam (Sod 3.375 gm/ Sodium Chloride) 100 mls @ 25 mls/hr IVPB Q8HR [facility] Last Admin: 08/26/20 17:29 Dose: 25 mls/hr Documented by: Metronidazole 500 mg/ IV (Solution) 100 mls @ 100 mls/hr IVPB Q8H [facility] Last Admin: 08/26/20 17:30 Dose: 100 mls/hr Documented by: Parenteral Vitamin Supplement 10 ml/ Potassium Phosphate 12 mmol/ Chromium/Copper/Manganese/Seleni/Zn 1 ml/Sodium Acetate 24 meq/Magnesium Sulfate 1 gm/Calcium Gluconate 0.5 gm/Amino Acids/Dextrose 1,034 mls @ 60 mls/hr IV .BY DURATION [facility] Last Admin: 08/26/20 17:14 Dose: Not Given Documented by: Potassium Phosphate 12 mmol/Sodium Acetate 24 meq/ Amino Acids/Dextrose 1,016 mls @ 60 mls/hr IV .BY DURATION [facility] Nicotine (Nicotine 14mg/24hr Patch) 1 patch TRANSDERM DAILY [facility] Last Admin: 08/26/20 10:35 Dose: 1 patch Documented by: Nitroglycerin (Nitroglycerin Oint 1 Inch/Gm Packet) 0.5 inch TOPICAL Q8HR [facility] Last Admin: 08/26/20 17:14 Dose: Not Given Documented by: Pantoprazole Sodium (Pantoprazole 40 Mg Tablet) 40 mg PO AC-BID [facility] Last Admin: 08/26/20 17:30 Dose: 40 mg Documented by: Sucralfate (Sucralfate 1 Gm Tab) 1 gm PO ACHS [facility] Last Admin: 08/26/20 17:30 Dose: 1 gm Documented by: Physical examination: VITAL SIGNS: 97.9, 98, 16, 100/65, 100% on room air GENERAL: Laying in bed, comfortable EYES: Pupils equal. Conjunctiva normal. NECK: JVD not raised; masses not palpable. HEART: First and second heart sounds are normal; no edema. LUNGS: Respiratory rate normal; decreased breath sounds. ABDOMEN: Soft, no tenderness, no guarding rigidity, liver spleen not palpable, no masses palpable. PSYCH: Alert and oriented x3; mood and affect normal INVESTIGATIONS, reviewed in the clinical context: Potassium 4.7 creatinine 0.5 for white count 6 hemoglobin 10.8 Upper GI series-no evidence of leak. Admission testing White count 15.7 hemoglobin 13.2 platelets 516 increased neutrophils potassium 4.0 creatinine 0.56 EKG tracing personally reviewed by me-nonspecific T-wave changes in the anterior leads Chest x-ray film personally reviewed by me-free air below both the diaphragms. Lung may clear Computed tomography scan of the abdomen-moderate to severe gastric wall thickening with poorly distended stomach. Sigmoid colonic diverticula. Pneumoperitoneum Assessment: - perforated gastric ulcer in patient's risk factors include , smoker. Recent steroids, , naproxen.,aspirin.-free air.. managed conservatively. Initially nothing by mouth. Diet advanced. -Essential hypertension. Patient's blood pressure currently running on the lower side. Verapamil held. -depression and anxiety not otherwise specified -Chronic stable angina for which patient appears to be on Ranexa -Hyperlipidemia -Osteoarthritis -COPD in a current smoker -Chronic nicotine dependence patient cigarette smoker Plan: Currently on a ground diet. Remains on IV Diflucan IV Flagyl IV Zosyn. Will keep patient off the verapamil. Discussed with the patient. Thank you Dr. Garcia
[2020-08-26 23:33] VITALS: RESP 18
[2020-08-27] MEDS: LACTATED RINGERS 1,000 ML IV SCH ×2 (02:40→08:07)
[2020-08-27] MEDS: metroNIDAZOLE-NS PMX 500 MG in SALINE 1 100ML.BAG IVPB SCH (06:27)
[2020-08-27] MEDS: PANTOPRAZOLE 40 MG TABLET PO SCH (06:27)
[2020-08-27] MEDS: SUCRALFATE 1 GM TAB PO SCH (06:27)
[2020-08-27] MEDS: NICOTINE 14MG/24HR PATCH TRANSDERM SCH (07:56)
[2020-08-27 08:00] LABS: Potassium 4.5 mmol/L (3.5-5.1)
[2020-08-27 08:01] LABS: African American GFR (CKD) >90 (>60 ml/min/1.73 sqM); Anion Gap 6 mmol/L; Blood Urea Nitrogen 9 mg/dL (7-17); Calcium 9.6 mg/dL (8.4-10.2); Carbon Dioxide 23 mmol/L (22-30); Chloride 110 mmol/L (98-107); Glucose 87 mg/dL (74-99); Magnesium 2.2 mg/dL (1.6-2.3); Non-African American GFR(CKD) >90 (>60 ml/min/1.73 sqM); Phosphorus 3.7 mg/dL (2.5-4.5); Sodium 139 mmol/L (137-145)
[2020-08-27] MEDS: ENOXAPARIN 40 MG/0.4 ML SYRINGE SQ SCH (08:06)
[2020-08-27] MEDS: PIPERACILLIN-TAZOBACTAM 3.375 GM in SODIUM CHLORIDE 0.9% 100 ML IVPB SCH (08:06)
[2020-08-27] MEDS: IPRATROPIUM-ALBUTEROL 3 ML NEB INHALATION SCH ×2 (08:51→11:55)
--- NOTE | 2020-08-27 09:11 | P.DS ---
<Kathy Tolbert - Last Filed: 08/27/20 09:04> Providers Expected date of discharge: 08/27/20 Hospital Course: Discharge diagnosis 1. Pneumoperitoneum secondary to gastric ulcer perforation 2. History of chronic NSAID use 3. Chronic back pain 4. Abnormal EKG for anterior ischemia Hospital course The patient is a 65 year old female who presented to the hospital following acute onset chest pain that radiated to the bilateral upper chest including bilateral upper abdomen that started yesterday. She reports chronic chest pain including back pain. In fact, she reports chronic back pain where she takes Aleve daily for over one year. She reports not really having much of an appetite. She presented today with history of burning chest pain with radiation to the bilateral upper chest and neck and back. Reports history of dark stools. Patient had computed tomography scan of the abdomen and pelvis with free air along the upper abdomen and along the inferior stomach. No air around the colon. Patient was able to be treated conservatively. She was placed on antibiotics. Kept nothing by mouth and was started on TPN for nutrition support or a total of 7 days. She had EGD completed during this admission that did reveal gastric ulcer perforation. She had an UGI completed that showed no evidence of leak. She was then started on a clear liquid diet in which she tolerated. Diet was able to be advanced. Patient is tolerating diet. Denies any nausea or vomiting. Denies any pain. She is up and ambulating. She's afebrile. She is stable for discharge. Physician Fire Manager note has been reviewed by physician. Signing provider agrees with the documented findings, assessment, and plan of care. Patient Condition at Discharge: Good Plan - Discharge Summary New Discharge Prescriptions: New Amoxicillin/Potassium Clav [Augmentin 875-125 Tablet] 1 tab PO Q12HR 10 Days #20 tab Sucralfate [Carafate] 1 gm PO QID #120 tab Fluconazole [Diflucan] 100 mg PO DAILY #7 tab Pantoprazole [Protonix] 40 mg PO AC-BID #60 tablet. Continue PARoxetine HCL [Paroxetine HCl] 20 mg PO DAILY Simvastatin 10 mg PO HS Ranolazine [Ranexa] 1,000 mg PO BID Cholecalciferol [Vitamin D3 (25 Mcg = 1000 Iu)] 2,000 unit PO DAILY Hydrocodone/Acetaminophen [[place] 5-325] 1 tab PO Q6HR PRN #12 tab PRN Reason: Pain Ondansetron [Zofran] 4 mg PO Q8H PRN PRN Reason: Nausea Acetaminophen [Tylenol] 500 mg PO Q4-6H PRN PRN Reason: pain Discontinued Naproxen 500 mg PO BID Aspirin [Tensas Aspirin EC] 81 mg PO DAILY Verapamil HCl [[place] Sr] 240 mg PO DAILY Discharge Medication List PARoxetine HCL [Paroxetine HCl] 20 mg PO DAILY 10/06/14 [History] Simvastatin 10 mg PO HS 10/06/14 [History] Ranolazine [Ranexa] 1,000 mg PO BID 03/31/20 [History] Cholecalciferol [Vitamin D3 (25 Mcg = 1000 Iu)] 2,000 unit PO DAILY 07/01/20 [History] Hydrocodone/Acetaminophen [[place] 5-325] 1 tab PO Q6HR PRN #12 tab 08/13/20 [Rx] Acetaminophen [Tylenol] 500 mg PO Q4-6H PRN 08/18/20 [History] Ondansetron [Zofran] 4 mg PO Q8H PRN 08/18/20 [History] Amoxicillin/Potassium Clav [Augmentin 875-125 Tablet] 1 tab PO Q12HR 10 Days #20 tab 08/27/20 [Rx] Fluconazole [Diflucan] 100 mg PO DAILY #7 tab 08/27/20 [Rx] Pantoprazole [Protonix] 40 mg PO AC-BID #60 tablet.dr 08/27/20 [Rx] Sucralfate [Carafate] 1 gm PO QID #120 tab 08/27/20 [Rx] Follow up Appointment(s)/Referral(s): Jose Alfredo Stewart DO [Primary Care Provider] - 08/31/20 11:40 am Kacie Garcia MD [STAFF PHYSICIAN] - 08/31/20 Patient Instructions/Handouts: Peptic Ulcer (DC), Diet for Stomach Ulcers and Gastritis (ED) Activity/Diet/Wound Care/Special Instructions: Diet Regular Activity: as tolerated Discharge Disposition: HOME WITH HOME HEALTH SERVICES <Kacie Garcia - Last Filed: 08/28/20 21:10> Providers Date of admission: 08/18/20 12:18 Attending physician: Kacie Garcia Primary care physician: Jose Alfredo Stewart - Discharge Diagnosis(es) (1) Elevated d-dimer Status: Acute (2) Gastric ulcer Status: Acute (3) Pneumoperitoneum Status: Acute (4) Chronic stomach ulcer due to nonsteroidal anti-inflammatory drug (NSAID) Status: Acute (5) Perforated gastric ulcer Status: Acute Hospital Course: Please see corrected documentation below: The patient is a 65 year old female who presented with acute chest pain with radiation to the neck and back. Incidental CT scan demonstrated free air. Patient reports longstanding history over 6 months of back pain with chronic NSAID use with Aleve over similar duration. She was treated with Zosyn, Flagyl including TPN with PICC line. She was on prolonged NPO status. All of her chest, neck, back pain had resolved with conservative management. Upper endoscopy confirmed gastric ulcer in the proximal stomach. UGI showed resolved pneumoperitoneum and no leak. Prior to discharge, she was tolerating pureed diet as she is edentulous. She denied and abdominal pain. She was discharged on Carafate, Omeprazole, Diflucan, and Augmentin for 1 more week for antibiotics. She was stable for discharge. All NSAIDs were discontinued.
[2020-08-27 09:48] VITALS: BP 104/73; PULSE 85; TEMP 97.6
[2020-08-27] MEDS: FLUCONAZOLE IN NACL,ISO-OSM 100 MG in SALINE 1 50ML.BAG IVPB SCH (09:51)
--- NOTE | 2020-08-27 23:26 | P.PN ---
Progress Note - Text Progress Note Date: 08/27/20 - Chief Complaint Abdominal pain Consultation: This is a pleasant 65-year-old patient of Dr. Stewart. Chronic stable medical conditions include fibromyalgia, hypertension, hyperlipidemia, osteoarthritis, kidney cancer that was removed, osteoarthritis chronic low back pain. Long- standing smoker. Patient started on yesterday with increasing epigastric pain down to below the rib cage also refer to the shoulder. A lot of nausea. This presented to ER earlier today. X-ray and computed tomography scan of the abdomen showed free air and present of thickened gastric wall. Continues to have epigastric pain. No obvious fever and chills. Patient recently has been o n steroids for her back pain exacerbation. Admitted with what is now felt to be perforated gastric ulcer. 3.. She was started on IV Zosyn and Flagyl. Seen by Dr. Garcia general surgery. To be m anaged conservatively She made nothing by mouth. Patient is started on TPN and lipids. Diet was greatly advanced. Had upper GI series. No evidence of gastric leak. Today-starting a soft diet. No abdominal pain. No nausea vomiting. Discussed with the patient. Verapamil to continue to be held. Follow-up with PCP. Review of systems: Was done for constitutional, cardiovascular, GI, pulmonary. relevant finding as above current medications reviewed in today's electronic records Physical examination: VITAL SIGNS:he 7.6, 85, 18, 104/73, 97% room air GENERAL: sitting up comfortable EYES: Pupils equal. Conjunctiva normal. NECK: JVD not raised; masses not palpable. HEART: First and second heart sounds are normal; no edema. LUNGS: Respiratory rate normal; decreased breath sounds. ABDOMEN: Soft, no tenderness, no guarding rigidity, liver spleen not palpable, no masses palpable. PSYCH: Alert and oriented x3; mood and affect normal INVESTIGATIONS, reviewed in the clinical context: potassium 4.5 crit 0.61 Upper GI series-no evidence of leak. Admission testing White count 15.7 hemoglobin 13.2 platelets 516 increased neutrophils potassium 4.0 creatinine 0.56 EKG tracing personally reviewed by me-nonspecific T-wave changes in the anterior leads Chest x-ray film personally reviewed by me-free air below both the diaphragms. Lung may clear Computed tomography scan of the abdomen-moderate to severe gastric wall thickening with poorly distended stomach. Sigmoid colonic diverticula. Pneumoperitoneum Assessment: - perforated gastric ulcer in patient's risk factors include , smoker. Recent steroids, , naproxen.,aspirin.-free air.. managed conservatively. Initially nothing by mouth. not tolerating diet. -Essential hypertension. Patient's blood pressure currently running on the lower side. Verapamil discontinued -depression and anxiety not otherwise specified -Chronic stable angina for which patient appears to be on Ranexa -Hyperlipidemia -Osteoarthritis -COPD in a current smoker -Chronic nicotine dependence patient cigarette smoker Plan: stable. Verapamil discontinued. Follow-up with PCP. Antibiotics prescribed by the primary team. Thank you Dr. Garcia
== END 2020-08-27 13:46 | disposition home or self-care (01) | DRG 382 ==
LOC: EC 09:16 → 3SCARD 12:18
PROVIDERS: ADMIT Surgery Plastic and Reconstructive Surgery; ATTEND Surgery Plastic and Reconstructive Surgery
PROC: 02HV33Z Insertion of Infusion Device into Superior Vena Cava, Percutaneous Approach (ICD-10-PCS; 2020-08-19)
PROC: 3E0436Z Introduction of Nutritional Substance into Central Vein, Percutaneous Approach (ICD-10-PCS; 2020-08-19)
PROC: 0DB78ZX Excision of Stomach, Pylorus, Via Natural or Artificial Opening Endoscopic, Diagnostic (ICD-10-PCS; principal; 2020-08-23 08:35)
DX: K25.5 Chronic or unspecified gastric ulcer with perforation (principal); K66.8 Other specified disorders of peritoneum; K44.9 Diaphragmatic hernia without obstruction or gangrene; E78.5 Hyperlipidemia, unspecified; F17.210 Nicotine dependence, cigarettes, uncomplicated; F32.9 Major depressive disorder, single episode, unspecified; F41.9 Anxiety disorder, unspecified; G89.29 Other chronic pain; I10 Essential (primary) hypertension; I20.8 Other forms of angina pectoris; J44.9 Chronic obstructive pulmonary disease, unspecified; K29.50 Unspecified chronic gastritis without bleeding; M19.90 Unspecified osteoarthritis, unspecified site; M79.7 Fibromyalgia; T39.395A Adverse effect of other nonsteroidal anti-inflammatory drugs [NSAID], initial encounter; R94.31 Abnormal electrocardiogram [ECG] [EKG]; R79.89 Other specified abnormal findings of blood chemistry; M54.9 Dorsalgia, unspecified; K57.30 Diverticulosis of large intestine without perforation or abscess without bleeding; K20.90 Esophagitis, unspecified without bleeding; Z79.82 Long term (current) use of aspirin; Z79.899 Other long term (current) drug therapy; Z79.1 Long term (current) use of non-steroidal anti-inflammatories (NSAID); Z85.528 Personal history of other malignant neoplasm of kidney; Z90.710 Acquired absence of both cervix and uterus; Z90.49 Acquired absence of other specified parts of digestive tract; Z88.5 Allergy status to narcotic agent; Z87.19 Personal history of other diseases of the digestive system; Z98.51 Tubal ligation status; Z98.890 Other specified postprocedural states; Z80.9 Family history of malignant neoplasm, unspecified
CPT/HCPCS: 36415; 36573; 43239; 71046; 74019; 74177; 80048; 80053; 82040; 82330; 82728; 83540; 83550; 83735; 84100; 84478; 84484; 85025; 85027; 85379; 85610; 85730; 87040; 88305; 93005; 93306; 94640; 96365; 96375; 99291

== ENCOUNTER 2020-09-28 13:13 | Inpatient (IN) | payer MEDICARE ==
[2020-09-28] MEDS ORDERED: ASPIRIN 81 MG PO STA (13:48)
[2020-09-28] MEDS ORDERED: NITROGLYCERIN OINT 1 INCH/GM PACKET TOPICAL STA (13:48)
[2020-09-28] MEDS ORDERED: MAG HYDROX/AL HYDROX/SIMETH 30 ML, HYOSCYAMINE ELIXIR 10 ML PO STA ×2 (13:48)
--- NOTE | 2020-09-28 13:51 | ED ---
General Adult HPI - General Chief complaint: Chest Pain Stated complaint: chest & back pain Time Seen by Provider: 09/28/20 13:20 Source: patient, RN notes reviewed, old records reviewed Mode of arrival: wheelchair Limitations: no limitations - History of Present Illness Initial comments: This is a 65-year-old female presents emergency Department who has a history of an ulcer. Patient comes in today complaint chest pain over the last day she states it's worse when she exerts herself. Patient states it radiates to her back per patient states she is not short of breath or having any difficulty breathing. Patient denies any diaphoretic episodes. Patient denies any fever chills or cough per patient denies any swelling to the legs or calf tenderness. Patient denies any lightheadedness dizziness or near syncopal episode. Patient states the pain gets so bad sometimes she does vomit. - Related Data Home Medications Medication Instructions Recorded Confirmed PARoxetine HCL [Paroxetine HCl] 20 mg PO HS 10/06/14 09/28/20 Simvastatin 10 mg PO HS 10/06/14 09/28/20 Acetaminophen [Tylenol] 500 mg PO Q4-6H PRN 08/18/20 09/28/20 Previous Rx's Medication Instructions Recorded Sucralfate [Carafate] 1 gm PO QID #120 tab 08/27/20 Allergies Allergy/AdvReac Type Severity Reaction Status Date / Time codeine Allergy Rash/Hives Verified 09/28/20 14:30 isosorbide AdvReac HEADACHE Verified 09/28/20 14:30 Review of Systems ROS Statement: Those systems with pertinent positive or pertinent negative responses have been documented in the HPI. ROS Other: All systems not noted in ROS Statement are negative. Past Medical History Past Medical History: Cancer, Fibromyalgia, Hyperlipidemia, Hypertension, Osteoarthritis (OA) Additional Past Medical History / Comment(s): arthritis, kidney ca, CHEST AND BACK PAIN History of Any Multi-Drug Resistant Organisms: None Reported Past Surgical History: Cholecystectomy, Hysterectomy, Tubal Ligation Additional Past Surgical History / Comment(s): RT kidney surgery, COLONOSCOPY Past Anesthesia/Blood Transfusion Reactions: Previous Problems w/ Anesthesia Additional Past Anesthesia/Blood Transfusion Reaction / Comment(s): SLOW TO WAKE UP Past Psychological History: Anxiety, Depression Smoking Status: Current every day smoker Past Alcohol Use History: None Reported Past Drug Use History: None Reported - Past Family History Mother Family Medical History: Cancer Sister(s) Family Medical History: Cancer Father Family Medical History: Cancer General Exam - General Exam Comments Initial Comments: GENERAL: Patient is well-developed and well-nourished. Patient is nontoxic and well- hydrated and is in no acute distress. ENT: Neck is soft and supple. No significant lymphadenopathy is noted. Oropharynx is clear. Moist mucous membranes. Neck has full range of motion without eliciting any pain. EYES: The sclera were anicteric and conjunctiva were pink and moist. Extraocular movements were intact and pupils were equal round and reactive to light. Eyelids were unremarkable. PULMONARY: Unlabored respirations. Good breath sounds bilaterally. No audible rales rhonchi or wheezing was noted. CARDIOVASCULAR: There is a regular rate and rhythm without any murmurs gallops or rubs. ABDOMEN: Soft and nontender with normal bowel sounds. SKIN: Skin is clear with no lesions or rashes and otherwise unremarkable. NEUROLOGIC: Patient is alert and oriented x3. Cranial nerves II through XII are grossly intact. Motor and sensory are also intact. Normal speech, volume and content. Symmetrical smile. MUSCULOSKELETAL: Normal extremities with adequate strength and full range of motion. No lower extremity swelling or edema. No calf tenderness. LYMPHATICS: No significant lymphadenopathy is noted PSYCHIATRIC: Normal psychiatric evaluation. Limitations: no limitations Course Vital Signs 09/28/20 13:21 Temperature 97.9 F Pulse Rate 84 Respiratory 18 Rate Blood Pressure 143/88 O2 Sat by Pulse 99 Oximetry Medical Decision Making - Medical Decision Making EKG shows normal sinus rhythm at 84 bpm CO interval is 136 dresses 74 QT interval 360 QTC is 425. Patient's EKG shows no ST segment elevation or depression. Chest x-ray shows no acute normalities. She had chest pain in the emergency department and continued patient states after she received Nitropaste and the GI cocktail her pain was relieved but she doesn't know which one has improved. I spoke with Dr. Lee agreed to admit the patient admitted the patient wrote admitting orders. - Lab Data Result diagrams: 09/28/20 14:00 09/28/20 14:00 Lab Results 09/28/20 09/28/20 09/28/20 Range/Units 14:00 14:00 14:00 WBC 6.5 (3.8-10.6) k/uL RBC 4.48 (3.80-5.40) m/uL Hgb 12.7 (11.4-16.0) gm/dL Hct 38.7 (34.0-46.0) % MCV 86.4 (80.0-100.0) fL MCH 28.2 (25.0-35.0) pg MCHC 32.6 (31.0-37.0) g/dL RDW 15.0 (11.5-15.5) % Plt Count 280 (150-450) k/uL MPV 7.6 Neutrophils % 73 % Lymphocytes % 21 % Monocytes % 4 % Eosinophils % 1 % Basophils % 0 % Neutrophils # 4.7 (1.3-7.7) k/uL Lymphocytes # 1.4 (1.0-4.8) k/uL Monocytes # 0.3 (0-1.0) k/uL Eosinophils # 0.1 (0-0.7) k/uL Basophils # 0.0 (0-0.2) k/uL PT 10.5 (9.0-12.0) sec INR 1.0 (<1.2) APTT 27.4 (22.0-30.0) sec Sodium 138 (137-145) mmol/L Potassium 4.1 (3.5-5.1) mmol/L Chloride 107 (98-107) mmol/L Carbon Dioxide 26 (22-30) mmol/L Anion Gap 5 mmol/L BUN 13 (7-17) mg/dL Creatinine 0.58 (0.52-1.04) mg/dL Est GFR (CKD-EPI)AfAm >90 (>60 ml/min/1.73 sqM) Est GFR (CKD-EPI)NonAf >90 (>60 ml/min/1.73 sqM) Glucose 109 H (74-99) mg/dL Calcium 10.0 (8.4-10.2) mg/dL Magnesium 2.1 (1.6-2.3) mg/dL Total Bilirubin 0.3 (0.2-1.3) mg/dL AST 26 (14-36) U/L ALT 17 (4-34) U/L Alkaline Phosphatase 77 (38-126) U/L Troponin I (0.000-0.034) ng/mL Total Protein 7.1 (6.3-8.2) g/dL Albumin 4.3 (3.5-5.0) g/dL 09/28/20 Range/Units 14:00 WBC (3.8-10.6) k/uL RBC (3.80-5.40) m/uL Hgb (11.4-16.0) gm/dL Hct (34.0-46.0) % MCV (80.0-100.0) fL MCH (25.0-35.0) pg MCHC (31.0-37.0) g/dL RDW (11.5-15.5) % Plt Count (150-450) k/uL MPV Neutrophils % % Lymphocytes % % Monocytes % % Eosinophils % % Basophils % % Neutrophils # (1.3-7.7) k/uL Lymphocytes # (1.0-4.8) k/uL Monocytes # (0-1.0) k/uL Eosinophils # (0-0.7) k/uL Basophils # (0-0.2) k/uL PT (9.0-12.0) sec INR (<1.2) APTT (22.0-30.0) sec Sodium (137-145) mmol/L Potassium (3.5-5.1) mmol/L Chloride (98-107) mmol/L Carbon Dioxide (22-30) mmol/L Anion Gap mmol/L BUN (7-17) mg/dL Creatinine (0.52-1.04) mg/dL Est GFR (CKD-EPI)AfAm (>60 ml/min/1.73 sqM) Est GFR (CKD-EPI)NonAf (>60 ml/min/1.73 sqM) Glucose (74-99) mg/dL Calcium (8.4-10.2) mg/dL Magnesium (1.6-2.3) mg/dL Total Bilirubin (0.2-1.3) mg/dL AST (14-36) U/L ALT (4-34) U/L Alkaline Phosphatase (38-126) U/L Troponin I <0.012 (0.000-0.034) ng/mL Total Protein (6.3-8.2) g/dL Albumin (3.5-5.0) g/dL Disposition Clinical Impression: Chest pain, History of ulcer disease Disposition: ADMITTED IP TO THIS HOSP Referrals: Jose Alfredo Stewart DO [Primary Care Provider] - 1-2 days Time of Disposition: 15:22
[2020-09-28 14:10] LABS: Basophils % (A) 0 %; Eosinophils # (A) 0.1 k/uL (0-0.7); Eosinophils % (A) 1 %; HCT 38.7 % (34.0-46.0); HGB 12.7 gm/dL (11.4-16.0); Lymphocytes # (A) 1.4 k/uL (1.0-4.8); Lymphocytes % (A) 21 %; MCH 28.2 pg (25.0-35.0); MCHC 32.6 g/dL (31.0-37.0); MCV 86.4 fL (80.0-100.0); Mean Platelet Volume 7.6; Monocytes # (A) 0.3 k/uL (0-1.0); Monocytes % (A) 4 %; Neutrophils # (A) 4.7 k/uL (1.3-7.7); Neutrophils % (A) 73 %; Platelet Count 280 k/uL (150-450); RBC 4.48 m/uL (3.80-5.40); WBC 6.5 k/uL (3.8-10.6)
[2020-09-28 14:24] LABS: ALT 17 U/L (4-34); AST 26 U/L (14-36); African American GFR (CKD) >90 (>60 ml/min/1.73 sqM); Albumin 4.3 g/dL (3.5-5.0); Alkaline Phosphatase 77 U/L (38-126); Anion Gap 5 mmol/L; Blood Urea Nitrogen 13 mg/dL (7-17); Carbon Dioxide 26 mmol/L (22-30); Chloride 107 mmol/L (98-107); Glucose 109 mg/dL (74-99); Magnesium 2.1 mg/dL (1.6-2.3); Non-African American GFR(CKD) >90 (>60 ml/min/1.73 sqM); Potassium 4.1 mmol/L (3.5-5.1); Sodium 138 mmol/L (137-145); Total Bilirubin 0.3 mg/dL (0.2-1.3); Total Protein 7.1 g/dL (6.3-8.2)
[2020-09-28 14:28] LABS: Partial Thromboplastin Time 27.4 sec (22.0-30.0); Prothrombin Time 10.5 sec (9.0-12.0)
--- NOTE | 2020-09-28 14:34 | XR ---
EXAMINATION TYPE: XR chest 2V DATE OF EXAM: 09/28/2020 COMPARISON: Chest x-ray August 18, 2020 HISTORY: Chest and back pain. TECHNIQUE: Frontal and lateral views of the chest are obtained. FINDINGS: There is some chronic parenchymal changes bilaterally without suspicious new focal air spa ce opacity, pleural effusion, or pneumothorax seen. The cardiac silhouette size remains within drake l limits. The osseous structures are intact. Overlying EKG leads are in current study. Interval res olution of pneumoperitoneum noted. IMPRESSION: Chronic changes without acute pulmonary process currently.
[2020-09-28] MEDS: MAG HYDROX/AL HYDROX/SIMETH 30 ML CUP PO SCH (18:42)
[2020-09-29] MEDS: PARoxetine 20 MG TAB PO SCH ×2 (00:55→21:29)
[2020-09-29] MEDS: ATORVASTATIN 10 MG TAB PO SCH ×2 (00:55→21:26)
[2020-09-29] MEDS: SUCRALFATE 1 GM TAB PO SCH ×5 (00:55→21:26)
[2020-09-29] MEDS: MAG HYDROX/AL HYDROX/SIMETH 30 ML CUP PO SCH ×5 (00:57→21:26)
[2020-09-29 05:41] LABS: Cholesterol 173 mg/dL (<200); HDL Cholesterol 56 mg/dL (40-60); LDL Cholesterol,Calculated 97 mg/dL (0-99); Triglycerides 101 mg/dL (<150)
[2020-09-29] MEDS ORDERED: ASPIRIN 325 MG TAB PO SCH (09:00)
--- NOTE | 2020-09-29 09:39 | P.CRDCN ---
History of Present Illness Consult date: 09/29/20 History of present illness: CHIEF COMPLAINT: Chest pain HISTORY OF PRESENT ILLNESS: This is a 65-year-old female with a past medical history significant for hyperlipidemia, fibromyalgia, anxiety, depression, and nicotine dependence. Patient states she used to follow with Dr. Renner but she recently closed her practice. We have been asked to see the patient in consultation for chest pain. Patient examined this morning in the emergency room. It is noted the patient was hospitalized in July 2020 and she was found to have a perforated gastric ulcer. The patient was treated with antibiotics and TPN. She states she is supposed to have a another EGD performed by Dr. Garcia on 10/06/2020. Patient states approximately 3 days ago she began having back pain between her shoulder blades that radiated to the front of her chest and her abdomen. She states the pain is "over all the front of my body". She reports nausea and vomiting over the past few days as well. She reports feeling a pressure sensation in her chest that was relieved after she would vomit. She currently denies shortness of breath. Patient had an echocardiogram completed in July 2020 revealing ejection fraction 60-65%. The patient reports she was seen at [facility] in 2019 and she underwent a cardiac catheterization at that time which she states was normal. DIAGNOSTICS: EKG reveals sinus rhythm with no signs of acute ischemia Chest xray chronic changes without acute pulmonary process Laboratory data: WBC 6.5. Hemoglobin 12.7. Platelet count 280. Sodium 138. Potassium 4.1. BUN 13. Creatinine 0.58. Magnesium 2.1. Troponin negative 3. Triglycerides 101. Cholesterol 173. LDL 97. HDL 56. Current home cardiac medications include simvastatin 10 mg daily REVIEW OF SYSTEMS: At the time of my exam: CONSTITUTIONAL: Denies fever or chills. HEENT: Denies blurred vision, vision changes, or eye pain. Denies hemoptysis CARDIOVASCULAR: Denies chest pain, orthopnea, PND or palpitations RESPIRATORY: No shortness of breath. GASTROINTESTINAL: Reports generalized abdominal pain and nausea. HEMATOLOGIC: Denies bleeding disorders. GENITOURINARY: Denies any blood in urine. SKIN: Denies pruitis. Denies rash. PHYSICAL EXAM: VITAL SIGNS: Reviewed. GENERAL: Well-developed in no acute distress. HEENT: Head is normocephalic. Pupils are equal, round. Sclerae anicteric. Mucous membranes of the mouth are moist. Neck supple. No JVD or thyromegaly LUNGS: Respirations even and unlabored. Lungs diminished. HEART: Regular rate and rhythm. S1 and S2 heard. ABDOMEN: Soft. Nondistended. Mildly tender with palpation. EXTREMITIES: Normal range of motion. No clubbing or cyanosis. Peripheral pulses intact. No lower extremity edema NEUROLOGIC: Awake and alert. Oriented x 3. ASSESSMENT: Atypical chest pain, troponins negative 3 Abdominal pain with nausea and vomiting Recent hospitalization for perforated gastric ulcer Hyperlipidemia Fibromyalgia Nicotine dependence, patient smokes 1/2 pack per day PLAN: An acute coronary event has been ruled out No need to repeat echocardiogram as this was recently performed in July 2020 Resume home cardiac medications Obtain cardiac catheterization reports from [facility] Recommend surgical consult with Dr. Garcia Nurse practitioner note has been reviewed by physician. Signing provider agrees with the documented findings, assessment, and plan of care. Past Medical History Past Medical History: Cancer, Fibromyalgia, Hyperlipidemia, Hypertension, Osteoarthritis (OA) Additional Past Medical History / Comment(s): arthritis, kidney ca, CHEST AND BACK PAIN History of Any Multi-Drug Resistant Organisms: None Reported Past Surgical History: Cholecystectomy, Hysterectomy, Tubal Ligation Additional Past Surgical History / Comment(s): RT kidney surgery, COLONOSCOPY Past Anesthesia/Blood Transfusion Reactions: Previous Problems w/ Anesthesia Additional Past Anesthesia/Blood Transfusion Reaction / Comment(s): SLOW TO WAKE UP Past Psychological History: Anxiety, Depression Smoking Status: Current every day smoker Past Alcohol Use History: None Reported Past Drug Use History: None Reported - Past Family History Mother Family Medical History: Cancer Sister(s) Family Medical History: Cancer Father Family Medical History: Cancer Medications and Allergies Home Medications Medication Instructions Recorded Confirmed Type PARoxetine HCL [Paroxetine HCl] 20 mg PO HS 10/06/14 09/28/20 History Simvastatin 10 mg PO HS 10/06/14 09/28/20 History Acetaminophen [Tylenol] 500 mg PO Q4-6H PRN 08/18/20 09/28/20 History Sucralfate [Carafate] 1 gm PO QID #120 tab 08/27/20 09/28/20 Rx Allergies Allergy/AdvReac Type Severity Reaction Status Date / Time codeine Allergy Rash/Hives Verified 09/28/20 14:30 isosorbide AdvReac HEADACHE Verified 09/28/20 14:30 Physical Exam Vitals: Vital Signs Temp Pulse Resp BP Pulse Ox 09/29/20 08:01 97.7 F 75 16 111/75 98 09/29/20 06:30 75 16 111/75 98 09/29/20 00:00 62 16 112/77 98 09/28/20 20:15 98 09/28/20 18:00 97 F L 78 18 122/81 3 L 09/28/20 16:32 98 F 72 18 114/81 100 09/28/20 13:21 97.9 F 84 18 143/88 99 Results 09/28/20 14:00 09/28/20 14:00 Cardiac Enzymes 09/28/20 09/28/20 09/28/20 Range/Units 14:00 14:00 16:33 AST 26 (14-36) U/L Troponin I <0.012 <0.012 (0.000-0.034) ng/mL 09/28/20 Range/Units 19:31 AST (14-36) U/L Troponin I <0.012 (0.000-0.034) ng/mL Coagulation 09/28/20 Range/Units 14:00 PT 10.5 (9.0-12.0) sec APTT 27.4 (22.0-30.0) sec Lipids 09/29/20 Range/Units 04:32 Triglycerides 101 (<150) mg/dL Cholesterol 173 (<200) mg/dL HDL Cholesterol 56 (40-60) mg/dL CBC 09/28/20 Range/Units 14:00 WBC 6.5 (3.8-10.6) k/uL RBC 4.48 (3.80-5.40) m/uL Hgb 12.7 (11.4-16.0) gm/dL Hct 38.7 (34.0-46.0) % Plt Count 280 (150-450) k/uL Comprehensive Metabolic Panel 09/28/20 Range/Units 14:00 Sodium 138 (137-145) mmol/L Potassium 4.1 (3.5-5.1) mmol/L Chloride 107 (98-107) mmol/L Carbon Dioxide 26 (22-30) mmol/L BUN 13 (7-17) mg/dL Creatinine 0.58 (0.52-1.04) mg/dL Glucose 109 H (74-99) mg/dL Calcium 10.0 (8.4-10.2) mg/dL AST 26 (14-36) U/L ALT 17 (4-34) U/L Alkaline Phosphatase 77 (38-126) U/L Total Protein 7.1 (6.3-8.2) g/dL Albumin 4.3 (3.5-5.0) g/dL Current Medications Generic Name Dose Route Start Last Admin Trade Name Freq PRN Reason Stop Dose Admin Al Hydroxide/Mg Hydroxide 30 ml 09/28/20 18:00 09/29/20 08:32 Mag Hydrox/Al Hydrox/Simeth 30 Ml Cup PO 30 ml QID LYNETTE Administration Aspirin 325 mg 09/29/20 09:00 09/29/20 08:32 Aspirin 325 Mg Tab PO 325 mg DAILY LYNETTE Administration Atorvastatin Calcium 10 mg 09/28/20 21:45 09/29/20 00:55 Atorvastatin 10 Mg Tab PO 10 mg HS LYNETTE Administration Paroxetine HCl 20 mg 09/28/20 21:45 09/29/20 00:55 Paroxetine 20 Mg Tab PO 20 mg HS LYNETTE Administration Sucralfate 1 gm 09/28/20 22:00 09/29/20 08:32 Sucralfate 1 Gm Tab PO 1 gm QID LYNETTE Administration 09/28/20 14:00 09/28/20 14:00
[2020-09-29] MEDS ORDERED: RX INFO: IV CONTRAST WAS GIVEN 1 EACH MISC MISCELLANE PRN (13:18)
--- NOTE | 2020-09-29 14:11 | P.GSCN ---
History of Present Illness Consult date: 09/29/20 History of present illness: CHIEF COMPLAINT: Upper back pain and chest pain 3 days HISTORY OF PRESENT ILLNESS: This is a 65-year-old female with a known past medical history of a perforated gastric ulcer that was treated conservatively in July 2020. Patient reports completing her antibiotic treatment for the perforated peptic ulcer. She also has been taking her Protonix and Carafate. She denies any NSAID use since her last hospitalization. However, patient is still smoking about a half a pack a day. Patient comes into the emergency room with complaints of upper back pain and chest pain with vomiting over the last 3 days. She reports the symptoms are the same as when she had her perforated gastric ulcer. Patient took Tylenol with no no relief. She did have a GI cocktail in the ER they do give versus some relief. She complains of epigastric discomfort. Her emesis is bile in color. No blood present in emesis. She reports that she has been able to eat. The food has not upset her stomach. She denies any fever, chills or sweats. Denies any bowel movement changes or urinary symptoms. Patient was seen by cardiology and acute coronary syndrome has been ruled out. She is scheduled for a CTA of the chest to rule out dissection. Her other past medical history is significant for hyperlipidemia, chronic back pain, fibromyalgia, anxiety and depression. Patient is scheduled on 10/06/[address] Garcia for repeat EGD. PAST MEDICAL HISTORY: See list. PAST SURGICAL HISTORY: See list. MEDICATIONS: See list. ALLERGIES: See list. SOCIAL HISTORY: No illicit drug use. REVIEW OF SYSTEMS: CONSTITUTIONAL: Denies fever or chills. HEENT: Denies blurred vision, vision changes, or eye pain. Denies hemoptysis ENDOCRINE: Denies heat or cold intolerance. CARDIOVASCULAR: Denies chest pain or pressure. RESPIRATORY: No shortness of breath. GASTROINTESTINAL: Please refer to HPI NEURO: Denies history of seizures. PSYCH: No depression or suicidal ideation HEMATOLOGIC: Denies bleeding disorders. LYMPHATIC: The patient denies any lumps and bumps around the neck. GENITOURINARY: Denies any blood in urine or increased urinary frequency. MUSCULOSKELETAL: Denies myalgias. Denies joint swelling. Denies decreased range of motion beyond patients baseline. SKIN: Denies pruitis. Denies rash. PHYSICAL EXAM: VITAL SIGNS: Reviewed GENERAL: Well-developed in no acute distress. HEENT: No sclera icterus. Extraocular movements grossly intact. Moist buccal mucosa. Head is atraumatic, normocephalic. Hears conversational speech. No nasal drainage. NECK: Supple without lymphadenopathy. CHEST: Non-labored respirations and equal bilateral excursions. CARDIOVASCULAR: Palpable 2+ radial pulses. ABDOMEN: Soft. Nondistended. Epigastric tenderness MUSCULOSKELETAL: No clubbing or cyanosis. NEUROLOGIC: No focal or lateralizing signs. Cranial nerves II through XII grossly intact. PSYCH: Appropriate affect. Alert and oriented to person, place and time. SKIN: Well perfused. Good skin turgor. LABORATORY DATA: WBC 6.5 hemoglobin 12.7 BUN 13 creatinine 0.58 troponins negative 3 LFTs normal IMAGING: Chest x-ray chronic changes without acute pulmonary process ASSESSMENT: 1. Upper back pain, chest pain with epigastric discomfort and vomiting 2. Recent hospitalization in July 2020 for perforated gastric ulcer that was treated conservatively 3. Acute coronary event ruled out per cardiology 4. History of nicotine dependence 5. Hyperlipidemia 6. Fibromyalgia PLAN: -Computed tomography scan of the abdomen and pelvis with oral and IV contrast has been ordered. Discussed with radiologist who recommended to add CT of abdomen and pelvis to CTA with appropriate delayed images -Add IV Protonix -Keep patient nothing by mouth for now -Educated patient on smoking cessation -Further recommendations forthcoming per surgeon Physician [employer] Engine [employer] Specialist note has been reviewed by physician. Signing provider agrees with the documented findings, assessment, and plan of care. Past Medical History Past Medical History: Cancer, Fibromyalgia, Hyperlipidemia, Hypertension, Osteo arthritis (OA) Additional Past Medical History / Comment(s): arthritis, kidney ca, CHEST AND BACK PAIN, gastric ulcer History of Any Multi-Drug Resistant Organisms: None Reported Past Surgical History: Cholecystectomy, Hysterectomy, Tubal Ligation Additional Past Surgical History / Comment(s): RT kidney surgery, COLONOSCOPY Past Anesthesia/Blood Transfusion Reactions: Previous Problems w/ Anesthesia Additional Past Anesthesia/Blood Transfusion Reaction / Comm: SLOW TO WAKE UP Past Psychological History: Anxiety, Depression Smoking Status: Current every day smoker Past Alcohol Use History: None Reported Additional Past Alcohol Use History / Comment(s): STARTED SMOKING AT AGE 27 SMOKES 1/2 PPD Past Drug Use History: None Reported - Past Family History Mother Family Medical History: Cancer Sister(s) Family Medical History: Cancer Father Family Medical History: Cancer Medications and Allergies Home Medications Medication Instructions Recorded Confirmed Type PARoxetine HCL [Paroxetine HCl] 20 mg PO HS 10/06/14 09/28/20 History Simvastatin 10 mg PO HS 10/06/14 09/28/20 History Acetaminophen [Tylenol] 500 mg PO Q4-6H PRN 08/18/20 09/28/20 History Sucralfate [Carafate] 1 gm PO QID #120 tab 08/27/20 09/28/20 Rx Allergies Allergy/AdvReac Type Severity Reaction Status Date / Time codeine Allergy Rash/Hives Verified 09/28/20 14:30 isosorbide AdvReac HEADACHE Verified 09/28/20 14:30 Surgical - Exam Vital Signs Temp Pulse Resp BP Pulse Ox 97.9 F 84 18 143/88 99 09/28/20 13:21 09/28/20 13:21 09/28/20 13:21 09/28/20 13:21 09/28/20 13:21 Results - Labs 09/28/20 14:00 09/28/20 14:00 Abnormal Lab Results - Last 24 Hours (Table) 09/28/20 Range/Units 14:00 Glucose 109 H (74-99) mg/dL Diabetes panel 09/28/20 09/29/20 Range/Units 14:00 04:32 Sodium 138 (137-145) mmol/L Potassium 4.1 (3.5-5.1) mmol/L Chloride 107 (98-107) mmol/L Carbon Dioxide 26 (22-30) mmol/L BUN 13 (7-17) mg/dL Creatinine 0.58 (0.52-1.04) mg/dL Glucose 109 H (74-99) mg/dL Calcium 10.0 (8.4-10.2) mg/dL AST 26 (14-36) U/L ALT 17 (4-34) U/L Alkaline Phosphatase 77 (38-126) U/L Total Protein 7.1 (6.3-8.2) g/dL Albumin 4.3 (3.5-5.0) g/dL Triglycerides 101 (<150) mg/dL HDL Cholesterol 56 (40-60) mg/dL Calcium panel 09/28/20 Range/Units 14:00 Calcium 10.0 (8.4-10.2) mg/dL Albumin 4.3 (3.5-5.0) g/dL Pituitary panel 09/28/20 Range/Units 14:00 Sodium 138 (137-145) mmol/L Potassium 4.1 (3.5-5.1) mmol/L Chloride 107 (98-107) mmol/L Carbon Dioxide 26 (22-30) mmol/L BUN 13 (7-17) mg/dL Creatinine 0.58 (0.52-1.04) mg/dL Glucose 109 H (74-99) mg/dL Calcium 10.0 (8.4-10.2) mg/dL Adrenal panel 09/28/20 Range/Units 14:00 Sodium 138 (137-145) mmol/L Potassium 4.1 (3.5-5.1) mmol/L Chloride 107 (98-107) mmol/L Carbon Dioxide 26 (22-30) mmol/L BUN 13 (7-17) mg/dL Creatinine 0.58 (0.52-1.04) mg/dL Glucose 109 H (74-99) mg/dL Calcium 10.0 (8.4-10.2) mg/dL Total Bilirubin 0.3 (0.2-1.3) mg/dL AST 26 (14-36) U/L ALT 17 (4-34) U/L Alkaline Phosphatase 77 (38-126) U/L Total Protein 7.1 (6.3-8.2) g/dL Albumin 4.3 (3.5-5.0) g/dL
[2020-09-29] MEDS: IOPAMIDOL CONTRAST (ORAL USE) VIAL PO PRN ×2 (14:22→15:26)
[2020-09-29] MEDS: PANTOPRAZOLE 40 MG/10 ML VIAL IVP SCH (14:23)
[2020-09-29] MEDS: NICOTINE 14MG/24HR PATCH TRANSDERM SCH (14:23)
[2020-09-29 14:51] LABS: Amylase 69 U/L (30-110); Lipase 76 U/L (23-300)
[2020-09-29] MEDS ORDERED: PANTOPRAZOLE 40 MG TABLET PO SCH (17:30)
--- NOTE | 2020-09-29 18:04 | CT ---
EXAMINATION TYPE: CT angio thor/abd pel aorta DATE OF EXAM: 09/29/2020 COMPARISON: 09/01/2018 HISTORY: Possible dissection, free air. History of ulcers. Abdominal pain. CT DLP: 1091.7 mGycm Automated exposure control for dose reduction was used. CONTRAST: Performed with IV Contrast, patient injected with 100 mL of Isovue 370. There are 3-D post processed images. There is subsegmental atelectasis and scarring at the lung bases. There is no evidence of a pulmonary mass. There is ascending aorta measuring 3.4 cm. There is no dissection. There is normal contrast op acification of the pulmonary arteries. There are no filling defects. There are multiple hepatic cysts that measure up to 5.6 cm. The bile ducts are not dilated. Spleen stomach pancreas appear normal. There are clips from cholecystectomy. There is no adrenal mass. Kidneys show satisfactory contrast opacification. There is no hydronephrosi s. There is cortical thinning in the left kidney anteriorly. Right kidney is larger than the left. Th ere is 1.4 similar cortical cyst lateral upper pole left kidney. There is 1.3 cm calcified cyst anter ior left kidney unchanged. Bladder distends smoothly. There is no inguinal hernia. There is arterial flow in the abdominal aorta and celiac artery and superior mesenteric artery. There is bilateral arterial flow in the renal arteries. There is no evidence of arterial aneurysm or disse ction. There is arterial flow in the iliac and femoral arteries. There is no evidence of hemodynamic stenosis. IMPRESSION: No evidence of arterial aneurysm or dissection. No evidence of pulmonary embolism. There is some scar ring and subsegmental atelectasis at the lung bases slightly increased compared to old exam. Hepatic cysts unchanged. Left renal cortical thinning unchanged.
--- NOTE | 2020-09-29 19:48 | P.HPIM ---
History of Present Illness H&P Date: 09/29/20 Chief Complaint: Chest pain History of presenting complaint This is a pleasant 65-year-old patient of Dr. Stewart. Chronic stable medical conditions include fibromyalgia, hypertension, hyperlipidemia, osteoarthritis, kidney cancer that was removed, osteoarthritis chronic low back pain. Long- standing smoker. Patient was recently in the hospital with a perforated gastric ulcer. That was contained and managed conservatively. Since discharge patient able to tolerate her diet feeling well. She has continued to smoke about half a pack of cigarettes a day. Patient now presents with 3 days of episodes of developing pain in the lower mid back pain coming to the front to the lower sternal area. This is not made worse with food. The patient feels better after vomiting or nausea. No perspiration. No dizziness or lightheadedness. Patient does have some epigastric tenderness. Not worse than before. Now she thinks on this presentation to have similar to prior also presentation. Review of systems: GEN.: Tired EYES: None HEENT: None NECK: None RESPIRATORY: Baseline some shortness of breath CARDIOVASCULAR: As above GASTROINTESTINAL: As above GENITOURINARY: None MUSCULOSKELETAL: Joint pains including lower back pain LYMPHATICS: None HEMATOLOGICAL: None PSYCHIATRY: Anxiety NEUROLOGICAL: None Past medical history to include: Fibromyalgia, hyperlipidemia, hypertension, osteoarthritis, kidney cancer localized that was removed, arthritis, lower back pain anxiety depression, perforated gastric ulcer that was self-contained and managed conservatively Social history: Smokes half a pack a day for over 32 years no alcohol. Lives with her Physical examination: VITAL SIGNS: 97.7, 75, 16, 111/75, 98% on room air GENERAL: BMI 20.5, sitting up in a chair, awake EYES: Pupils equal. Conjunctiva normal. HEENT: External appearance of nose and ears normal, oral cavity grossly normal. NECK: JVD not raised; masses not palpable. HEART: First and second heart sounds are normal; no edema. LUNGS: Respiratory rate increased; decreased breath sounds. ABDOMEN: Soft, mild epigastric tenderness, no guarding rigidity, liver spleen not palpable, no masses palpable. PSYCH: Alert and oriented x3; mood and affect normal. NEUROLOGICAL: Cranial nerves grossly intact; no facial asymmetry, power and sensation grossly intact. LYMPHATICS: No lymph nodes palpable in the axilla and neck INVESTIGATIONS, reviewed in the clinical context: White count 6.5 hemoglobin 12.7 platelets 218 potassium 4.1 creatinine 0.58 Troponin I 3 negative EKG tracing personally reviewed by me-normal sinus rhythm Chest x-ray film personally reviewed by me-hyperinflation Computed tomography scan of the thorax-negative for outtake dissection Assessment: - Possible unstable angina and a patient's risk factors include hyperlipidemia, smoker. Chronic stable angina for which patient has been on Ranexa -Recent perforated gastric ulcer that was self-contained and managed conservatively.. -Essential hypertension. -depression and anxiety not otherwise specified -Chronic stable angina for which patient appears to be on Ranexa -Hyperlipidemia -Osteoarthritis -COPD in a current smoker -Chronic nicotine dependence patient cigarette smoker Plan: Home medications to be continued. Consultation made to cardiology and general surgery. Care was discussed with the patient. Nicotine patch ordered. Discussed with patient. We'll watch overnight. Past Medical History Past Medical History: Cancer, Fibromyalgia, Hyperlipidemia, Hypertension, Osteoarthritis (OA) Additional Past Medical History / Comment(s): arthritis, kidney ca, CHEST AND BACK PAIN History of Any Multi-Drug Resistant Organisms: None Reported Past Surgical History: Cholecystectomy, Hysterectomy, Tubal Ligation Additional Past Surgical History / Comment(s): RT kidney surgery, COLONOSCOPY Past Anesthesia/Blood Transfusion Reactions: Previous Problems w/ Anesthesia Additional Past Anesthesia/Blood Transfusion Reaction / Comment(s): SLOW TO WAKE UP Past Psychological History: Anxiety, Depression Smoking Status: Current every day smoker Past Alcohol Use History: None Reported Past Drug Use History: None Reported - Past Family History Mother Family Medical History: Cancer Sister(s) Family Medical History: Cancer Father Family Medical History: Cancer Medications and Allergies Home Medications Medication Instructions Recorded Confirmed Type PARoxetine HCL [Paroxetine HCl] 20 mg PO HS 10/06/14 09/28/20 History Simvastatin 10 mg PO HS 10/06/14 09/28/20 History Acetaminophen [Tylenol] 500 mg PO Q4-6H PRN 08/18/20 09/28/20 History Sucralfate [Carafate] 1 gm PO QID #120 tab 08/27/20 09/28/20 Rx Allergies Allergy/AdvReac Type Severity Reaction Status Date / Time codeine Allergy Rash/Hives Verified 09/28/20 14:30 isosorbide AdvReac HEADACHE Verified 09/28/20 14:30 Physical Exam Vitals: Vital Signs Temp Pulse Resp BP Pulse Ox 09/29/20 08:01 97.7 F 75 16 111/75 98 09/29/20 06:30 75 16 111/75 98 09/29/20 00:00 62 16 112/77 98 09/28/20 20:15 98 09/28/20 18:00 97 F L 78 18 122/81 3 L 09/28/20 16:32 98 F 72 18 114/81 100 09/28/20 13:21 97.9 F 84 18 143/88 99 Results CBC & Chem 7: 09/28/20 14:00 09/28/20 14:00 Labs: Abnormal Lab Results - Last 24 Hours (Table) 09/28/20 Range/Units 14:00 Glucose 109 H (74-99) mg/dL
[2020-09-30] MEDS: SUCRALFATE 1 GM TAB PO SCH ×2 (08:47→13:06)
[2020-09-30] MEDS: MAG HYDROX/AL HYDROX/SIMETH 30 ML CUP PO SCH ×2 (08:47→13:06)
[2020-09-30] MEDS: PANTOPRAZOLE 40 MG/10 ML VIAL IVP SCH (08:52)
[2020-09-30 09:19] VITALS: RESP 16; TEMP 98.1
--- NOTE | 2020-09-30 09:46 | P.PN ---
Subjective Progress Note Date: 09/30/20 CHIEF COMPLAINT: Chest pain HISTORY OF PRESENT ILLNESS: Patient examined this morning at the bedside. Patient denies chest pain or pressure. She denies abdominal pain. Denies nausea or vomiting. Blood pressure this morning 102/64. Heart rate in the 70s. PHYSICAL EXAM: VITAL SIGNS: Reviewed. GENERAL: Well-developed in no acute distress. HEENT: Head is normocephalic. Pupils are equal, round. Sclerae anicteric. Mucous membranes of the mouth are moist. Neck supple. No JVD or thyromegaly LUNGS: Respirations even and unlabored. Lungs diminished. HEART: Regular rate and rhythm. S1 and S2 heard. EXTREMITIES: Normal range of motion. No clubbing or cyanosis. Peripheral pulses intact. No lower extremity edema ASSESSMENT: Atypical chest pain, troponins negative 3, acute coronary event ruled out Abdominal pain with nausea and vomiting Recent hospitalization for perforated gastric ulcer Hyperlipidemia Fibromyalgia Nicotine dependence, patient smokes 1/2 pack per day PLAN: Continue current cardiac medications Obtain cardiac catheterization reports from [facility] Patient is currently stable from a cardiac perspective Await further recommendations from general surgery Nurse practitioner note has been reviewed by physician. Signing provider agrees with the documented findings, assessment, and plan of care. Objective - Vital Signs Vital signs: Vital Signs Temp 98.1 F 09/30/20 08:50 Pulse 73 09/30/20 09:00 Resp 16 09/30/20 09:00 BP 102/64 09/30/20 08:50 Pulse Ox 97 09/30/20 08:50 Intake & Output 09/29/20 09/30/20 09/30/20 18:59 06:59 18:59 Weight 47.627 kg Other: Voiding Method Toilet Toilet Toilet # Voids 1 2 # Bowel Movements 2 - Labs CBC & Chem 7: 09/28/20 14:00 09/28/20 14:00
[2020-09-30] MEDS ORDERED: PROPOFOL 10 MG/ML 20 ML VIAL IV ONE (10:56)
[2020-09-30] MEDS ORDERED: LIDOCAINE 1% INJ 10MG/ML (20 ML MDV) ONE (10:56)
[2020-09-30] MEDS ORDERED: IV FLUID CONTINUATION 1,000 ML IV ONE (11:02)
--- NOTE | 2020-09-30 11:41 | P.PCN ---
Date of Procedure: 09/30/20 Description of Procedure: PREOPERATIVE DIAGNOSIS: History of perforated gastric ulcer Epigastric abdominal pain, acute Atypical chest pain POSTOPERATIVE DIAGNOSIS: Acute on chronic gastritis History of perforated gastric ulcer Paraesophageal hiatal hernia OPERATION: Esophagogastroduodenoscopy with biopsies along antrum. SURGEON: Kacie Garcia MD ANESTHESIA: MAC. INDICATIONS: The patient is a 65-year-old female who presents with a history of perforated gastric ulcer including abdominal pain. Benefits and risks of the procedure were described. Informed consent was obtained. DESCRIPTION: The patient was brought into the endoscopy suite and laid in the left lateral decubitus position. An Olympus gastroscope was passed along the posterior oropharynx down to the distal esophagus where the squamocolumnar junction was encountered at 36 cm from the incisors. The stomach was entered and no bile reflux was found. Additional findings are listed below. Biopsies with cold forceps were obtained of the antrum. The first through third portion of the duodenum was examined and unremarkable. Retroflexion of the scope confirmed Hill grade 4 lower esophageal valve. The squamocolumnar junction demonstrated LA grade B erosive esophagitis. The stomach was desufflated. The patient tolerated the procedure well. FINDINGS: Squamocolumnar junction 36 cm from the incisors. Diaphragmatic hiatus at 40 cm. Hiatal hernia, 4 cm Hill grade 4 lower esophageal valve. LA grade B erosive esophagitis. No active duodenitis. Chronic gastritis Resolved perforated gastric ulcer RECOMMENDATIONS: 1. Strict tobacco cessation and advised 2. Atypical chest pain likely related to symptomatic diaphragmatic hiatal hernia.
[2020-09-30 13:05] VITALS: BP 132/82; PULSE 73
[2020-09-30] MEDS: NICOTINE 14MG/24HR PATCH TRANSDERM SCH (13:06)
--- NOTE | 2020-09-30 19:01 | P.DS ---
Providers Date of admission: 09/30/20 08:30 Expected date of discharge: 09/30/20 Attending physician: Surendra Lee Consults: 09/28/20 15:23 Consult Physician Urgent Consulting Provider: Cardiology Sarah Consult Reason/Comments: Chest pain Do you want consulting provider notified?: Yes 09/28/20 15:27 Consult Physician Urgent Consulting Provider: Kacie Garcia Consult Reason/Comments: History of an ulcer Do you want consulting provider notified?: Yes Primary care physician: [facility] Course: Chief Complaint: Chest pain History of presenting complaint This is a pleasant 65-year-old patient of Dr. Stewart. Chronic stable medical conditions include fibromyalgia, hypertension, hyperlipidemia, osteoarthritis, kidney cancer that was removed, osteoarthritis chronic low back pain. Long- standing smoker. Patient was recently in the hospital with a perforated gastric ulcer. That was contained and managed conservatively. Since discharge patient able to tolerate her diet feeling well. She has continued to smoke about half a pack of cigarettes a day. Patient now presents with 3 days of episodes of developing pain in the lower mid back pain coming to the front to the lower sternal area. This is not made worse with food. The patient feels better after vomiting or nausea. No perspiration. No dizziness or lightheadedness. Patient does have some epigastric tenderness. Not worse than before. Now she thinks on this presentation to have similar to prior also presentation. Patient was seen by cardiology. Acute coronary syndrome was ruled out. No further workup from then. Patient was seen by Dr. Brambila from general surgery. EGD showed gastritis and grade B esophagitis. No ulcer. Patient advised against smoking again. Started on PPI. No indication for Carafate. Discontinued Discussion and discharge planning more than 35 minutes Consultation: Cardiology associates Dr. Brambila from general surgery Physical examination: VITAL SIGNS: 98.1, 73, 16, 102/64, 97% room air GENERAL: Sitting up, comfortable EYES: Pupils equal. Conjunctiva normal. HEENT: External appearance of nose and ears normal, oral cavity grossly normal. NECK: JVD not raised; masses not palpable. HEART: First and second heart sounds are normal; no edema. LUNGS: Respiratory rate increased; decreased breath sounds. ABDOMEN: Soft, mild epigastric tenderness, no guarding rigidity, liver spleen not palpable, no masses palpable. PSYCH: Alert and oriented x3; mood and affect normal. INVESTIGATIONS, reviewed in the clinical context: White count 6.5 hemoglobin 12.7 platelets 218 potassium 4.1 creatinine 0.58 Troponin I 3 negative EKG tracing personally reviewed by me-normal sinus rhythm Chest x-ray film personally reviewed by me-hyperinflation Computed tomography scan of the thorax-negative for outtake dissection EGD-some gastritis and LA grade B esophagitis. No ulcer Assessment: - Chest pain possibly musculoskeletal -Recent perforated gastric ulcer that was self-contained and managed conservatively-with repeat EGD at this admission not showing any... -Essential hypertension. -depression and anxiety not otherwise specified -Chronic stable angina for which patient appears to be on Ranexa -Hyperlipidemia -Primary Osteoarthritis -COPD in a current smoker -Chronic nicotine dependence patient cigarette smoker Disposition: Home Patient Condition at Discharge: Stable Plan - Discharge Summary Discharge Rx Participant: No New Discharge Prescriptions: New Nicotine 14Mg/24Hr Patch [Habitrol] 1 patch TRANSDERM DAILY #14 patch Omeprazole [PriLOSEC] 20 mg PO AC-BID #60 cap Continue PARoxetine HCL [Paroxetine HCl] 20 mg PO HS Simvastatin 10 mg PO HS Acetaminophen [Tylenol] 500 mg PO Q4-6H PRN PRN Reason: pain Discontinued Sucralfate [Carafate] 1 gm PO QID #120 tab Discharge Medication List PARoxetine HCL [Paroxetine HCl] 20 mg PO HS 10/06/14 [History] Simvastatin 10 mg PO HS 10/06/14 [History] Acetaminophen [Tylenol] 500 mg PO Q4-6H PRN 08/18/20 [History] Nicotine 14Mg/24Hr Patch [Habitrol] 1 patch TRANSDERM DAILY #14 patch 09/30/20 [Rx] Omeprazole [PriLOSEC] 20 mg PO AC-BID #60 cap 09/30/20 [Rx] Follow up Appointment(s)/Referral(s): Tawanda Bass MD [STAFF PHYSICIAN] - 10/13/20 3:15 pm Jose Alfredo Stewart DO [Primary Care Provider] - 1-2 days Kacie Garcia MD [STAFF PHYSICIAN] - 2 Weeks Discharge Disposition: HOME SELF-CARE
== END 2020-09-30 13:21 | disposition home or self-care (01) | DRG 313 ==
LOC: EC 13:13 → 1SOBS 15:23 → OBSVTOIN 09-30 08:30
PROVIDERS: ADMIT Hospitalist; ATTEND Hospitalist
PROC: 0DB78ZX Excision of Stomach, Pylorus, Via Natural or Artificial Opening Endoscopic, Diagnostic (ICD-10-PCS; principal; 2020-09-30 08:10)
DX: R07.89 Other chest pain (principal); K22.10 Ulcer of esophagus without bleeding; I20.8 Other forms of angina pectoris; J44.9 Chronic obstructive pulmonary disease, unspecified; K44.9 Diaphragmatic hernia without obstruction or gangrene; E78.5 Hyperlipidemia, unspecified; K29.00 Acute gastritis without bleeding; K29.50 Unspecified chronic gastritis without bleeding; I10 Essential (primary) hypertension; G89.29 Other chronic pain; M54.5 Low back pain; M54.6 Pain in thoracic spine; F32.9 Major depressive disorder, single episode, unspecified; F41.9 Anxiety disorder, unspecified; M79.7 Fibromyalgia; M19.91 Primary osteoarthritis, unspecified site; F17.210 Nicotine dependence, cigarettes, uncomplicated; Z71.6 Tobacco abuse counseling; Z79.899 Other long term (current) drug therapy; Z85.528 Personal history of other malignant neoplasm of kidney; Z90.5 Acquired absence of kidney; Z90.49 Acquired absence of other specified parts of digestive tract; Z90.710 Acquired absence of both cervix and uterus; Z87.19 Personal history of other diseases of the digestive system; Z87.42 Personal history of other diseases of the female genital tract; Z98.51 Tubal ligation status; Z88.5 Allergy status to narcotic agent; Z88.8 Allergy status to other drugs, medicaments and biological substances; Z80.9 Family history of malignant neoplasm, unspecified
CPT/HCPCS: 36415; 43239; 71046; 71275; 74174; 80053; 80061; 82150; 83690; 83735; 84484; 85025; 85610; 85730; 88305; 88342; 93005; 99285

== ENCOUNTER → 2021-07-06 | Outpatient (CLI) | payer MEDICARE ==
--- NOTE | 2021-07-08 14:40 | MM ---
Reason for exam: screening (asymptomatic). Last mammogram was performed 2 years and 5 months ago. History: Patient is postmenopausal and has history of high-risk lesion on a previous biopsy at age 51. Family history of breast cancer in sister at age 42. High risk excisional biopsy of the right breast, February 19, 2007. Benign ultrasound-guided core biopsy of the right breast, March 20, 2002. Cyst aspiration of the left breast. Cyst aspiration of the right breast. Core biopsy of the right breast. Took hormonal contraceptives for 6 months. Physical Findings: A clinical breast exam by your physician is recommended on an annual basis and results should be correlated with mammographic findings. MG Screening Mammo w CAD Bilateral CC and MLO view(s) were taken. Prior study comparison: February 07, 2019, bilateral MG screening mammo w CAD. October 03, 2017, bilateral MG screening mammo w CAD. The breast tissue is heterogeneously dense. This may lower the sensitivity of mammography. There is chronic nodularity in the right breast posterior and inferiorly. Central asymmetric density right CC view is more defined. ASSESSMENT: Incomplete: need additional imaging evaluation, BI-RAD 0 RECOMMENDATION: Special view mammogram of the right breast. (3D) If lesion persists on supplemental views, image directed ultrasound is recommended. [facility] will attempt to contact patient to return for supplemental views and ultrasound if indicated.
== END | disposition home or self-care (01) ==
LOC: RADMAMWWP 15:26
PROVIDERS: ATTEND Family Medicine
DX: Z12.31 Encounter for screening mammogram for malignant neoplasm of breast (principal); Z78.0 Asymptomatic menopausal state; Z80.3 Family history of malignant neoplasm of breast; Z79.3 Long term (current) use of hormonal contraceptives
CPT/HCPCS: 77067

== ENCOUNTER → 2021-07-21 | Outpatient (CLI) | payer MEDICARE ==
--- NOTE | 2021-07-21 15:09 | MM ---
Reason for exam: additional evaluation requested from abnormal screening. Last mammogram was performed less than 1 month ago. History: Patient is postmenopausal, has history of other cancer at age 55, and has history of high-risk lesion on a previous biopsy at age 51. Family history of breast cancer in sister at age 42. High risk excisional biopsy of the right breast, February 19, 2007. Benign ultrasound-guided core biopsy of the right breast, March 20, 2002. Cyst aspiration of the left breast. Cyst aspiration of the right breast. Core biopsy of the right breast. Took hormonal contraceptives for 6 months. Physical Findings: Nurse did not find any significant physical abnormalities on exam. MG Work Up Mamm w CAD RT Spot compression CC, LM, and CCRL view(s) were taken of the right breast. Prior study comparison: July 06, 2021, bilateral MG screening mammo w CAD. The breast tissue is heterogeneously dense. This may lower the sensitivity of mammography. Asymmetric breast tissue right 12 o'clock persists. These results were verbally communicated with the patient and result sheet given to the patient on 07/21/21. ASSESSMENT: Incomplete: need additional imaging evaluation, BI-RAD 0 RECOMMENDATION: Ultrasound of the right breast.
--- NOTE | 2021-07-21 15:10 | USB ---
Reason for exam: additional evaluation requested from abnormal screening. History: Patient is postmenopausal, has history of other cancer at age 55, and has history of high-risk lesion on a previous biopsy at age 51. Family history of breast cancer in sister at age 42. High risk excisional biopsy of the right breast, February 19, 2007. Benign ultrasound-guided core biopsy of the right breast, March 20, 2002. Cyst aspiration of the left breast. Cyst aspiration of the right breast. Core biopsy of the right breast. Took hormonal contraceptives for 6 months. US Breast Workup Limited RT Right limited breast ultrasound including focal area of concern, retroareolar and axilla demonstrates a 0.9 x 1.0 x 0.2cm oval, cystic lesion at 12 o'clock, a 0.3 x 0.2 x 0.1cm oval lesion too small to characterize at 1 o'clock and a 1.7 x 1.2 x 0.7cm lymph node at the axilla These results were verbally communicated with the patient and result sheet given to the patient on 07/21/21. ASSESSMENT: Probably benign, BI-RAD 3 RECOMMENDATION: Follow-up diagnostic mammogram of the right breast in 6 months.
== END | disposition home or self-care (01) ==
LOC: RADMAMWWP 13:19
PROVIDERS: ATTEND Family Medicine
DX: N64.89 Other specified disorders of breast (principal); N60.01 Solitary cyst of right breast; R92.2 Inconclusive mammogram; Z80.3 Family history of malignant neoplasm of breast
CPT/HCPCS: 77065

== ENCOUNTER → 2022-02-22 | Outpatient (CLI) | payer MEDICARE ==
--- NOTE | 2022-02-22 11:47 | MM ---
Reason for exam: follow-up at short interval from prior study. Last mammogram was performed 7 months ago. History: Patient is postmenopausal, has history of other cancer at age 55, and has history of high-risk lesion on a previous biopsy at age 51. Family history of breast cancer in sister at age 42. High risk excisional biopsy of the right breast, February 19, 2007. Benign ultrasound-guided core biopsy of the right breast, March 20, 2002. Cyst aspiration of the left breast. Cyst aspiration of the right breast. Core biopsy of the right breast. Took hormonal contraceptives for 6 months. Physical Findings: A clinical breast exam by your physician is recommended on an annual basis and results should be correlated with mammographic findings. MG 3D Diag Mammo W/Cad RT CC and MLO view(s) were taken of the right breast. Prior study comparison: July 06, 2021, bilateral MG screening mammo w CAD. The breast tissue is heterogeneously dense. This may lower the sensitivity of mammography. There is no discrete abnormality. Results were given to the patient verbally at the time of the exam. ASSESSMENT: Negative, BI-RAD 1 RECOMMENDATION: Return to routine screening mammogram schedule for both breasts. Back on schedule for June 2022.
== END | disposition home or self-care (01) ==
LOC: RADMAMWWP 10:40
PROVIDERS: ATTEND Family Medicine
DX: R92.8 Other abnormal and inconclusive findings on diagnostic imaging of breast (principal); Z78.0 Asymptomatic menopausal state; Z80.3 Family history of malignant neoplasm of breast
CPT/HCPCS: 77065; G0279; 77061

== ENCOUNTER → 2024-08-15 | Outpatient (CLI) | payer MEDICARE ==
--- NOTE | 2024-08-15 14:42 | US ---
EXAMINATION TYPE: US axilla RT DATE OF EXAM: 08/15/2024 COMPARISON: NONE CLINICAL INDICATION: Female, 69 years old with history of R22.31 MASS, LUMP RIGHT UPPER LIMB; Lump x 1 week; patient denies any other signs, symptoms, or relevant history TECHNIQUE: Grayscale color Doppler imaging of the area of concern in the right axilla. FINDINGS: Subcutaneous focal fat measuring 2.2 x 0.8 x 2.7 cm in the area of patient's concern. No o rganizing fluid collections. IMPRESSION: Subcutaneous lesion just under the skin surface findings that represent a lipid containin g lesion such as a lipoma. [facility], , 08/15/2024 2:40 PM
== END | disposition home or self-care (01) ==
LOC: RADUSWWP 14:06
PROVIDERS: ATTEND Family Medicine
DX: R22.31 Localized swelling, mass and lump, right upper limb (principal)